=== PATIENT | male | born 1935 | race Caucasian/White ===

== ENCOUNTER 2017-10-20 16:23 | Emergency (ER) | payer MEDICARE, MEDICAID, SELFPAY | END 2017-10-20 19:56 | disposition home or self-care (01) | PROVIDERS: Emergency Provider Emergency Medicine; Visit Provider Emergency Medicine | DX: J18.9 Pneumonia, unspecified organism (principal); I48.91 Unspecified atrial fibrillation; I25.10 Atherosclerotic heart disease of native coronary artery without angina pectoris; E78.5 Hyperlipidemia, unspecified; J44.9 Chronic obstructive pulmonary disease, unspecified; E11.9 Type 2 diabetes mellitus without complications; Z87.891 Personal history of nicotine dependence | CPT/HCPCS: 36415; 71275; 84484; 93005; 99283 ==

== ENCOUNTER 2017-11-12 07:53 | Day surgery (SDC) | payer MEDICARE, MEDICAID, SELFPAY ==
[2017-11-11 12:49] VITALS: BMI 20.5
[2017-11-12] VITALS (8 sets, daily range): BP systolic 106–147; BP diastolic 53–94; PULSE 70–82; RESP 12–18; TEMP 36.6–36.8; O2SAT 93–99
[2017-11-12 09:22] LABS: POC Glucose,Bedside 125 mg/dL
--- NOTE | 2017-11-12 10:25 | HMH.ANESCL ---
[facility] Anesthesia Checklist - Patient Identification Patient Identification: Arm Band, Verbal (Name & ) - Structural Data Admitted From: Home Planned Operative Procedure/s: pace maker Consent for Planned Operative Procedure(s) Verified: Yes Verified Documents: Surgical Consent - NPO Status Verified Time NPO: 00:00 - Chart Verification Results Verified: CBC, BMP - Additional verifications Patient : No Anesthesia Reactions: No Hx Blood Transfusions: Yes Blood Transfusion Reaction: No - Cardiovascular Assessment Pulse Strength: Baseline Pulse Rhythm: Irregular Peripheral Edema: No - Airway Assessment C-Spine Mobility Assessed: Yes TMJ Mobility Assessed: Yes Dentition: Edentulous - Neurological Assessment Level of Consciousness: Awake, Alert, Appropriate Hx Seizures: No Numbness or tingling in extremities: No - Anesthesia Plan Anesthesia Risk discussed: Yes Anesthesia Plan: Verified ASA Class: III Anesthesia Type: MAC [facility] Anesthesia HX I have reviewed the patient's past medical history: Yes Medical History: Reports:: Atrial Fibrillation, Chronic Obstructive Pulmonary Disease (COPD), Coronary Artery Disease, Diabetes Mellitus Type 2, Gastroesophageal Reflux Disease, Hyperlipidemia, Hypertension, Renal Disease Denies:: Cancer, Diabetes Mellitus Type 1, MRSA, Seizures Other Medical History: Reports: Hypothyroidism. Denies: Blood Transfusion Reaction Other Surgeries: Yes: Hernia Repair, Other. No: Pacemaker Amputation: No Fractures: No Comment: cabg x4 *Family Hx:: Anemia, Bleeding Disorder, Kidney Disease
--- NOTE | 2017-11-12 11:48 | XR_ITS ---
XR chest portable HISTORY: Follow-up pacemaker insertion ITS.REASON: s/p pacemaker placement ORDERING PHYSICIAN: Mark Lo MD PATIENT AGE: 81 years COMPARISON: 06/25/2017 FINDINGS: There is been interval insertion of the bipolar pacemaker from left subclavian approach. Leads are in good position. There is no evidence of pneumothorax. There has been prior median sternotomy. There is cardiomegaly without failure. Small bilateral pleural effusions with chronic changes in the left lower lobe. IMPRESSION: Interval pacemaker insertion with no radiographic evidence of complication.
--- NOTE | 2017-11-12 13:57 | PC.NURSE ---
Patient is home o2 dependent at 4lpm/nc
--- NOTE | 2017-11-12 14:10 | PC.NURSE ---
1206: Called for MD order for pain medication.
--- NOTE | 2017-11-16 15:50 | PC.NURSE ---
Pt called back with concerns of prescription written by . Pt advised to speak to 's office to confirm the use of prescription. Also stated that the pt was having some pain and possible pneumonia symptoms. Instructed for pt to get a visit with family doctor or come to ER if needed. Pt requested to be transfered to 's office.
--- NOTE | 2018-01-05 12:33 | HMH.PACER ---
[facility] Pacemaker - Pacemaker Placement Date of Procedure:: 11/12/17 Time of Procedure:: 09:00 Procedure Performed:: Pocket formation for permanent pacemaker placement Placement of atrial sensing pacing lead into the right atrial appendage Placement of ventricular sensing pacing lead into the right ventricular apex Permanent pacemaker placement Preoperative Diagnosis:: Symptomatic Bradycardia Complications:: None Estimated Blood Loss (ml): 10 Technique:: 1% Lidocaine with epinephrine used to anesthetize the left anterior aspect of the chest.Scalpel was used to make the initial cutaneous incision while electrocautery was used to dissect down into the fascia. The fascia was lifted off the pectoralis muscle and digitally manipulated creating a pocket for the pacemaker. The patient was then placed in Trendelenburg position and the subclavian vein was accessed via the Selinger technique. A 7 Serbian sheath was placed under fluoroscopic guidance into the subclavian vein. Following this, an additional wire was placed into the sheath. Now, with two wires inside the 7 Serbian sheath, this sheath was removed, maintaining the two wires in the subclavian vein. The sheath and dilator was then placed over one of the wires while keeping the other wire in place within the subclavian vein. The dilator was removed from the sheath. Using fluoroscopic guidance, the ventricular lead was placed into the right ventricular apex, screwed and secured into place. Electronic interrogation proved acceptable thresholds and voltage within the lead. Using 3-0 silk, the ventricular lead was then secured into place. Lead was secured to the fascia using the 3-0 silk. Following this, the sheath was pealed away. An additional 7 Serbian fresh sheath and dilator was placed over the existing wire. Using fluoroscopic guidance, the atrial lead was then placed into the right atrial appendage and screwed and secured in place. Electrical interrogation demonstrated acceptable thresholds and voltage numbers. The atrial lead was then secured into place using 3-0 silk and then the lead was finally secured to the fascia. With both the atria and ventricular leads in place with acceptable thresholds and sensitivity, the atrial and ventricular leads were placed into the pacemaker generator. Pacemaker generator was then secured to the fascia using 3-0 silk. 1 gram of Ancef was used to flush the pocket. Following the pacemaker being secured to the fascia and in place, Monocryl was used to close the subcutaneous layers while bhavya were used to close the cutaneous layer. A pressure dressing was placed and the patient was transferred to the postop holding area in stable condition for postoperative care. - Interrogation Narrative: P wave measures 3-4mV with a threshold AF and impedance 406 ohms and pulse width AF R wave measures 7-8 mV with a threshold of 1.0V and an impedance 708 ohms and pulse width .4 ms DDDR mode with a base tracking of 60 and max tracking 120 Generator model number [id number] serial number [id number] Atrial lead model number [id number] serial number [id number] Ventricular lead model number [id number] serial number [id number] Impression:: 1. Successful pocket formation for permanent pacemaker 2. Successful placement of atrial sensing and pacing lead into the right atrial appendage 3. Successful placement of ventricular sensing and pacing lead into the right ventricular apex 4. Successful placement of permanent dual chamber pacemaker Plan: Postoperative wound care
--- NOTE | 2018-01-05 12:38 | P.PCN_ITS ---
[facility] Pacemaker - Pacemaker Placement Date of Procedure:: 11/12/17 Time of Procedure:: 09:00 Procedure Performed:: Pocket formation for permanent pacemaker placement Placement of atrial sensing pacing lead into the right atrial appendage Placement of ventricular sensing pacing lead into the right ventricular apex Permanent pacemaker placement Preoperative Diagnosis:: Symptomatic Bradycardia Complications:: None Estimated Blood Loss (ml): 10 Technique:: 1% Lidocaine with epinephrine used to anesthetize the left anterior aspect of the chest.Scalpel was used to make the initial cutaneous incision while electrocautery was used to dissect down into the fascia. The fascia was lifted off the pectoralis muscle and digitally manipulated creating a pocket for the pacemaker. The patient was then placed in Trendelenburg position and the subclavian vein was accessed via the Selinger technique. A 7 Faroese sheath was placed under fluoroscopic guidance into the subclavian vein. Following this, an additional wire was placed into the sheath. Now, with two wires inside the 7 Faroese sheath, this sheath was removed, maintaining the two wires in the subclavian vein. The sheath and dilator was then placed over one of the wires while keeping the other wire in place within the subclavian vein. The dilator was removed from the sheath. Using fluoroscopic guidance, the ventricular lead was placed into the right ventricular apex, screwed and secured into place. Electronic interrogation proved acceptable thresholds and voltage within the lead. Using 3-0 silk, the ventricular lead was then secured into place. Lead was secured to the fascia using the 3-0 silk. Following this, the sheath was pealed away. An additional 7 Faroese fresh sheath and dilator was placed over the existing wire. Using fluoroscopic guidance, the atrial lead was then placed into the right atrial appendage and screwed and secured in place. Electrical interrogation demonstrated acceptable thresholds and voltage numbers. The atrial lead was then secured into place using 3-0 silk and then the lead was finally secured to the fascia. With both the atria and ventricular leads in place with acceptable thresholds and sensitivity, the atrial and ventricular leads were placed into the pacemaker generator. Pacemaker generator was then secured to the fascia using 3-0 silk. 1 gram of Ancef was used to flush the pocket. Following the pacemaker being secured to the fascia and in place, Monocryl was used to close the subcutaneous layers while bhavya were used to close the cutaneous layer. A pressure dressing was placed and the patient was transferred to the postop holding area in stable condition for postoperative care. - Interrogation Narrative: P wave measures 3-4mV with a threshold AF and impedance 406 ohms and pulse width AF R wave measures 7-8 mV with a threshold of 1.0V and an impedance 708 ohms and pulse width .4 ms DDDR mode with a base tracking of 60 and max tracking 120 Generator model number [id number] serial number [id number] Atrial lead model number [id number] serial number [id number] Ventricular lead model number [id number] serial number [id number] Impression:: 1. Successful pocket formation for permanent pacemaker 2. Successful placement of atrial sensing and pacing lead into the right atrial appendage 3. Successful placement of ventricular sensing and pacing lead into the right ventricular apex 4. Successful placement of permanent dual chamber pacemaker Plan: Postoperative wound care
== END 2017-11-12 13:30 | disposition home or self-care (01) ==
LOC: OR 07:55
PROVIDERS: PCP Internal Medicine Adolescent Medicine; Visit Provider Internal Medicine
DX: I48.3 Typical atrial flutter (principal); R55 Syncope and collapse; R42 Dizziness and giddiness; R00.1 Bradycardia, unspecified; R06.09 Other forms of dyspnea; I25.10 Atherosclerotic heart disease of native coronary artery without angina pectoris
CPT/HCPCS: 33208; 71045; 82962; 96374; C1785; C1898

== ENCOUNTER 2018-01-14 15:38 | Inpatient (IN) | payer MEDICARE, MEDICAID, SELFPAY ==
[2018-01-14] VITALS (7 sets, daily range): BP systolic 130–153; BP diastolic 59–79; PULSE 78–81; RESP 20–24; TEMP 36.6–37; O2SAT 92–933; BMI 21.2; BMI 20.3
--- NOTE | 2018-01-14 15:54 | XR_ITS ---
XR chest 2V COMPARISON: PA and lateral chest 06/25/2017 HISTORY: Shortness of breath TECHNIQUE: PA and lateral chest FINDINGS: Prominent pleural-parenchymal scarring seen at both lung bases. There is a somewhat ill-defined opacity at the right base which was shown to be due to a right lower lobe mass on previous CT scan. There is mild diffuse vascular congestion superimposed upon chronic changes. There is a cardiac pacemaker present which was not seen on most recent chest film and there are dual chamber electrodes both in good position. Sternal wire sutures are again noted. IMPRESSION: Prominent underlying chronic pleural-parenchymal basilar changes with pulmonary congestion superimposed suggesting early acute congestive failure
[2018-01-14 16:26] LABS: Appearance,Urine CLEAR (Clear); Bilirubin,Urine Negative (Negative); Blood, Urine Negative (Negative); Color,Urine YELLOW (Yellow); Glucose,Urine (UA) Negative (Negative); Ketones,Urine Negative (Negative); Leukocyte Esterase,Urine Negative (Negative); Microscopic, Urine URINE MICROSCOPIC (MICROSCOPIC); Nitrate,Urine Negative (Negative); Protein,Urine Negative (Negative); Urobilinogen,Urine 0.2 EU/dl (0.2)
[2018-01-14 16:36] LABS: Basophils % 0.4 % (0.1-2.0); Eosinophils # 0.1 K/mm3 (0.0-0.4); Eosinophils % 0.7 % (0.1-12.0); Hematocrit 34.4 % (42.0-52.0); Hemoglobin 10.2 g/dL (14.1-18.0); Lymphocytes # 1.9 K/mm3 (0.7-4.5); Lymphocytes % 17.1 K/mm3 (10-50); Mean Corpuscular HGB Conc 29.6 g/dL (31.8-35.4); Mean Corpuscular Hemoglobin 24.6 pg (27.0-31.2); Mean Corpuscular Volume 83.2 fl (80-94); Mean Platelet Volume 7.7 fl (7.4-10.4); Monocytes # 0.7 K/mm3 (0.1-1.0); Neutrophils # 8.3 K/mm3 (1.8-7.8); Neutrophils % 75.8 % (37.0-80.0); Platelet Count 381 K/mm3 (142-424); Red Blood Count 4.14 M/mm3 (4.60-6.20); White Blood Count 10.9 K/mm3 (4.8-10.8)
[2018-01-14 16:55] LABS: Bacteria,Urine Trace /lpf; WBC,Urine Occasional #/hpf (0-3)
[2018-01-14 16:57] LABS: Alanine Aminotransferase 12 U/L (12-78); Albumin Level 3.3 gm/dL (3.4-5.0); Albumin/Globulin Ratio 0.8 (1.1-1.8); Alkaline Phosphatase 84 U/L (46-116); Anion Gap 15.5 mEq/L (5-15); Aspartate Amino Transferase 7 U/L (15-37); Bilirubin,Total 0.8 mg/dL (0.2-1.0); Blood Urea Nitrogen 17 mg/dL (7-18); CKMB Relative Index 2.7 U/L (0-4.0); Calcium 8.8 mg/dL (8.5-10.1); Carbon Dioxide 29 mmol/L (21.0-32.0); Chloride 107 mmol/L (98-107); Creatine Kinase 45 U/L (39-308); Creatine Kinase MB 1.2 mg/ml (0.0-3.6); Creatinine Clearance Estimated 58 mL/min (0-300); Creatinine,Serum 0.96 mg/dL (0.70-1.30); Estimated Glomerular Filt Rate 75 ml/min (>60); GFR (African American) 91 ML/MIN (>60); Globulin 4.4 gm/dl (1.3-3.2); Glucose 121 mg/dL (74-106); Potassium 3.5 mmoL/L (3.5-5.1); Sodium 148 mmol/L (136-145); Total Protein,Serum 7.7 gm/dL (6.4-8.2); Troponin I < 0.02 ng/ml (0.00-0.06)
--- NOTE | 2018-01-14 17:28 | HMH.EDSOB ---
ED Disposition Clinical Impression: Acute exacerbation of chronic obstructive airways disease Pneumonia Qualifiers: Pneumonia type: due to unspecified organism Laterality: right Lung location: lower lobe of lung Qualified Code(s): J18.1 - Lobar pneumonia, unspecified organism Disposition: Admitted As Inpatient Condition on Discharge: Good Referrals: Haseeb Carter MD [Primary Care Provider] - - Critical Care Critical Care Time: No Attestation: On 01/14/18, the high probability of a clinically significant, sudden or life threatening deterioration of the following system(s) required my full and direct attention, intervention and personal management. The time I documented below is in addition to time spent performing reported procedures but includes the following listed in this critical care notation. Medical Decision Making - Edmar Inquiry Pt receiving controlled substance: No Edmar was queried for this patient: No Vital Signs: 01/14/18 15:41 Temperature 98.4 F Temperature Source Oral Pulse Rate [Left Brachial] 81 Respiratory Rate 20 Blood Pressure [Left Arm] 153/79 Blood Pressure Mean [Left Arm] 103 Blood Pressure Position [Left Arm] Sitting 02 Sat by Pulse Oximetry 93 L Oxygen Delivery Method Nasal Cannula Oxygen Flow Rate (LPM) 4 - Lab Data Lab Results 01/14/18 15:57: Urine Color Yellow, Urine Appearance Clear, Urine pH 6.0, Ur Specific Salley 1.010, Urine Protein Negative, Urine Glucose (UA) Negative, Urine Ketones Negative, Urine Blood Negative, Urine Nitrate Negative, Urine Bilirubin Negative, Urine Urobilinogen 0.2, Ur Leukocyte Esterase Negative, Urine RBC None, Urine WBC Occasional, Ur Squamous Epith Cells 10-20, Urine Bacteria Trace 01/14/18 16:20: WBC 10.9 H, RBC 4.14 L, Hgb 10.2 L, Hct 34.4 L, MCV 83.2, MCH 24.6 L, MCHC 29.6 L, RDW 15.0, Plt Count 381, MPV 7.7, Neut % (Auto) 75.8, Lymph % (Auto) 17.1, Surry % (Auto) 6.0, Eos % (Auto) 0.7, Baso % (Auto) 0.4, Neut # (Auto) 8.3 H, Lymph # (Auto) 1.9, Surry # (Auto) 0.7, Eos # (Auto) 0.1, Baso # (Auto) 0.0 01/14/18 16:20: Sodium 148 H, Potassium 3.5, Chloride 107, Carbon Dioxide 29, Anion Gap 15.5 H, BUN 17, Creatinine 0.96, Estimated Creat Clear 58, Estimated GFR 75, Est GFR ( Amer) 91, Glucose 121 H, Calcium 8.8, Total Bilirubin 0.8, AST 7 L, ALT 12, Alkaline Phosphatase 84, Total Creatine Kinase 45, CK-MB (CK-2) 1.2, CK-MB (CK-2) Rel Index 2.7, Troponin I < 0.02, Total Protein 7.7, Albumin 3.3 L, Globulin 4.4 H, Albumin/Globulin Ratio 0.8 L Result diagrams: 01/14/18 16:20 01/14/18 16:20 Orders (Tests/Meds): ORDERS Category Date Time Status Chest XR 2 view (NOT portable) [XR chest 2V] Stat Exams 01/14/18 15:54 Taken ECG Request by /Catherine Stat Y 01/14/18 15:54 Ordered - Radiology Data #1 Image(s): Chest Image Reviewed: Yes I reviewed the patient's radiology image appears to have rll infiltrtate - ECG Data Tracing #1 ECG initial impression date: 01/14/18 ECG initial impression time: 16:00 Pacemaker function: normal pacer function Resp/SOB HPI - General Chief Complaint: Shortness of Breath/Dyspnea Stated Complaint: SOA Time Seen by Provider: 01/14/18 17:05 Mode of Arrival: EMS Source of Information: Patient Limitations: No Limitations Description of Symptoms (Recalled from ER Triage Doc. by RN): EMS STATED PT CALLED WITH DIFFICULTY BREATHING. O2 SAT 88-89 ON ARRIVAL WITH USE OF ACESSORY MUSCLES. NEB TREATMENT GIVEN AND O2 SAT 95-96 WITH 4LNC AND RELIEF IN BREATHING - History of Present Illness MD Complaint: shortness of breath Onset (ago): day(s) (6) Context: recent illness (was at Dr Carter office this week and had antibiotics and steroids now has dypsnea on exertion and no pain) Severity: moderate Consistency/Duration: constant Relieving factors: oxygen, rest Exacerbating factors: movement Known history of: COPD Associated symptoms: denies other symptoms - Related Data Home Medications Me
--- NOTE | 2018-01-14 17:32 | ED_ITS ---
ED Disposition Clinical Impression: Acute exacerbation of chronic obstructive airways disease Pneumonia Qualifiers: Pneumonia type: due to unspecified organism Laterality: right Lung location: lower lobe of lung Qualified Code(s): J18.1 - Lobar pneumonia, unspecified organism Disposition: Admitted As Inpatient Condition on Discharge: Good Referrals: Haseeb Carter MD [Primary Care Provider] - - Critical Care Critical Care Time: No Attestation: On 01/14/18, the high probability of a clinically significant, sudden or life threatening deterioration of the following system(s) required my full and direct attention, intervention and personal management. The time I documented below is in addition to time spent performing reported procedures but includes the following listed in this critical care notation. Medical Decision Making - Edmar Inquiry Pt receiving controlled substance: No Edmar was queried for this patient: No Vital Signs: 01/14/18 15:41 Temperature 98.4 F Temperature Source Oral Pulse Rate [Left Brachial] 81 Respiratory Rate 20 Blood Pressure [Left Arm] 153/79 Blood Pressure Mean [Left Arm] 103 Blood Pressure Position [Left Arm] Sitting 02 Sat by Pulse Oximetry 93 L Oxygen Delivery Method Nasal Cannula Oxygen Flow Rate (LPM) 4 - Lab Data Lab Results 01/14/18 15:57: Urine Color Yellow, Urine Appearance Clear, Urine pH 6.0, Ur Specific Ambler 1.010, Urine Protein Negative, Urine Glucose (UA) Negative, Urine Ketones Negative, Urine Blood Negative, Urine Nitrate Negative, Urine Bilirubin Negative, Urine Urobilinogen 0.2, Ur Leukocyte Esterase Negative, Urine RBC None, Urine WBC Occasional, Ur Squamous Epith Cells 10-20, Urine Bacteria Trace 01/14/18 16:20: WBC 10.9 H, RBC 4.14 L, Hgb 10.2 L, Hct 34.4 L, MCV 83.2, MCH 24.6 L, MCHC 29.6 L, RDW 15.0, Plt Count 381, MPV 7.7, Neut % (Auto) 75.8, Lymph % (Auto) 17.1, [place] % (Auto) 6.0, Eos % (Auto) 0.7, Baso % (Auto) 0.4, Neut # (Auto) 8.3 H, Lymph # (Auto) 1.9, [place] # (Auto) 0.7, Eos # (Auto) 0.1, Baso # (Auto) 0.0 01/14/18 16:20: Sodium 148 H, Potassium 3.5, Chloride 107, Carbon Dioxide 29, Anion Gap 15.5 H, BUN 17, Creatinine 0.96, Estimated Creat Clear 58, Estimated GFR 75, Est GFR ( Amer) 91, Glucose 121 H, Calcium 8.8, Total Bilirubin 0.8, AST 7 L, ALT 12, Alkaline Phosphatase 84, Total Creatine Kinase 45, CK-MB ( CK-2) 1.2, CK-MB (CK-2) Rel Index 2.7, Troponin I < 0.02, Total Protein 7.7, Albumin 3.3 L, Globulin 4.4 H, Albumin/Globulin Ratio 0.8 L Result diagrams: 01/14/18 16:20 01/14/18 16:20 Orders (Tests/Meds): ORDERS Category Date Time Status Chest XR 2 view (NOT portable) [XR chest 2V] Stat Exams 01/14/18 15:54 Taken ECG Request by /Catherine Stat Y 01/14/18 15:54 Ordered - Radiology Data #1 Image(s): Chest Image Reviewed: Yes I reviewed the patient's radiology image appears to have rll infiltrtate - ECG Data Tracing #1 ECG initial impression date: 01/14/18 ECG initial impression time: 16:00 Pacemaker function: normal pacer function Resp/SOB HPI - General Chief Complaint: Shortness of Breath/Dyspnea Stated Complaint: SOA Time Seen by Provider: 01/14/18 17:05 Mode of Arrival: EMS Source of Information: Patient Limitations: No Limitations Description of Symptoms (Recalled from ER Triage Doc. by RN): EMS STATED PT CALLED WITH DIFFICULTY BREATHING. O2 SAT 88-89 ON ARRIVAL WIT
--- NOTE | 2018-01-14 19:00 | PC.NURSE ---
PT FULL CODE, REPORT FROM JAYCE
--- NOTE | 2018-01-14 19:00 | PC.NURSE ---
REPORT GIVEN TO MARCIO GARCIA RN
--- NOTE | 2018-01-14 19:34 | PC.NURSE ---
report given to johnna esquivel
[2018-01-14 23:39] LABS: POC Glucose,Bedside 174 mg/dL (70-110)
[2018-01-15] VITALS (10 sets, daily range): BP systolic 117–154; BP diastolic 62–73; PULSE 79–82; RESP 18–20; TEMP 36.2–36.9; O2SAT 94–98
[2018-01-15 06:59] LABS: POC Glucose,Bedside 191 mg/dL (70-110)
--- NOTE | 2018-01-15 07:33 | PC.NURSE ---
REPORT GIVEN TO Almas SUGGS W/C
--- NOTE | 2018-01-15 07:35 | HMH.HP ---
*Admission Date: 01/14/18 *Chief complaint: Shortness of breath *History of present illness: 82-year-old male with COPD and recent history of pacemaker placement presented to the emergency department after onset of cold symptoms this week with progressive dyspnea. However in talking to the patient he reports dyspnea has really been progressive over the last several months. On presentation to the emergency department the patient appeared dyspneic and was wheezing and he was admitted for COPD exacerbation. Patient denies chest pain. This morning he states he feels well as long as he is laying down, but with mild exertion such as to the bathroom he becomes short of breath. He has noticed some pedal edema over the last 3-4 days as well. Chest x-ray in the emergency department was initially interpreted as a right lower lobe pneumonia but has since been read as scarring with early vascular congestion. Patient denies orthopnea, paroxysmal nocturnal dyspnea. He admits when he exerts himself he gets a tight sensation occasionally in the chest and difficulty breathing. Patient has seen local cardiology and has undergone cardiac catheterization by Dr. Lo as well as pacemaker insertion [facility] History Medical History: Reports:: Atrial Fibrillation, Chronic Obstructive Pulmonary Disease (COPD), Coronary Artery Disease, Diabetes Mellitus Type 1, Gastroesophageal Reflux Disease(GERD), Hyperlipidemia, Hypertension, Internal Pacemaker, Renal Disease Denies:: Cancer, Diabetes Mellitus Type 2, MRSA, Seizures Other Medical History: Reports: Anemia, Arthritis, Blood Transfusion Reaction, Cataracts, Hypothyroidism Laterality Cases: Bilateral: Cataract Other Surgeries: Yes: CABG, Cardiac Catheterization, Coronary Stent, Hernia Repair, Pacemaker, Other Amputation: No Fractures: No - *Social History Educational Level: Attended High School Smoking Status: Former smoker Tobacco Type: cigarettes # Packs/Day (cigarettes): 1 #Yrs smoked (if former smoker): 30 Smoking End Date: 30 YEARS Alcohol Intake: never Occupational Status: retired Housing: house Household Members: caregiver, none - Psychiatric History Expresses thoughts of harming self/others: None Suicide Plan Description: No Plan *Family Hx:: Anemia, Bleeding Disorder, Kidney Disease Review of Systems - Review of Systems Review of systems:: pertinent systems reviewed and negative unless documented below Meds Home Medications Medication Instructions Recorded Confirmed Type Acetaminophen with Codeine 1 - 2 tab PO Q4HP PRN 11/12/17 01/14/18 History [Tylenol with Codeine #3 tablet] Albuterol Sulfate [Proair 90 mcg IH DAILY 11/12/17 01/14/18 History Respiclick] Carvedilol [Carvedilol 6.25mg Tab] 6.25 mg PO DAILY 11/12/17 01/14/18 History Fludrocortisone Acetate [Florinef 0.1 mg IH DAILY 11/12/17 01/14/18 History 0.1mg tablet] Fluticasone/Salmeterol 0 each IH DAILY 11/12/17 01/14/18 History [Fluticasone/Salmeterol 250/50mcg diskus] Meloxicam 7.5 mg PO DAILY 11/12/17 01/14/18 History Metformin HCl [Metformin 500mg 500 mg .ROUTE DAILY 11/12/17 01/14/18 History Tablet] Nitroglycerin 0.4 mg SL NEEDED PRN 11/12/17 01/14/18 History Ondansetron HCl [Ondansetron 4mg 4 mg PO DAILY 11/12/17 01/14/18 History Tab] Pantoprazole Sodium [Protonix 40mg 40 mg PO DAILY 11/12/17 01/14/18 History tablet] Rivaroxaban [Xarelto] 20 mg PO DAILY 11/12/17 01/14/18 History Sertraline HCl [Zoloft] 50 mg PO DAILY 11/12/17 01/14/18 History Simvastatin [Zocor] 40 mg PO DAILY 11/12/17 01/14/18 History Tamsulosin HCl [Flomax] 0.4 mg PO DAILY 11/12/17 01/14/18 History hydrocodone 5 mg-acetaminophen 325 1 tab PO Q6H PRN 11/17/17 01/14/18 History mg tablet Clopidogrel Bisulfate [Plavix 75mg 75 mg PO DAILY 01/14/18 01/14/18 History Tab] Doxycycline Monohydrate 100 mg PO BID 01/14/18 01/14/18 History [Doxycycline Monohydrate] Gabapentin [Gabapentin 100mg Cap] 100 mg PO DA
--- NOTE | 2018-01-15 07:39 | P.HP_ITS ---
*Admission Date: 01/14/18 *Chief complaint: Shortness of breath *History of present illness: 82-year-old male with COPD and recent history of pacemaker placement presented to the emergency department after onset of cold symptoms this week with progressive dyspnea. However in talking to the patient he reports dyspnea has really been progressive over the last several months. On presentation to the emergency department the patient appeared dyspneic and was wheezing and he was admitted for COPD exacerbation. Patient denies chest pain. This morning he states he feels well as long as he is laying down, but with mild exertion such as to the bathroom he becomes short of breath. He has noticed some pedal edema over the last 3-4 days as well. Chest x-ray in the emergency department was initially interpreted as a right lower lobe pneumonia but has since been read as scarring with early vascular congestion. Patient denies orthopnea, paroxysmal nocturnal dyspnea. He admits when he exerts himself he gets a tight sensation occasionally in the chest and difficulty breathing. Patient has seen local cardiology and has undergone cardiac catheterization by Dr. Lo as well as pacemaker insertion [facility] History Medical History: Reports:: Atrial Fibrillation, Chronic Obstructive Pulmonary Disease (COPD), Coronary Artery Disease, Diabetes Mellitus Type 1, Gastroesophageal Reflux Disease(GERD), Hyperlipidemia, Hypertension, Internal Pacemaker, Renal Disease Denies:: Cancer, Diabetes Mellitus Type 2, MRSA, Seizures Other Medical History: Reports: Anemia, Arthritis, Blood Transfusion Reaction, Cataracts, Hypothyroidism Laterality Cases: Bilateral: Cataract Other Surgeries: Yes: CABG, Cardiac Catheterization, Coronary Stent, Hernia Repair, Pacemaker, Other Amputation: No Fractures: No - *Social History Educational Level: Attended High School Smoking Status: Former smoker Tobacco Type: cigarettes # Packs/Day (cigarettes): 1 #Yrs smoked (if former smoker): 30 Smoking End Date: 30 YEARS Alcohol Intake: never Occupational Status: retired Housing: house Household Members: caregiver, none - Psychiatric History Expresses thoughts of harming self/others: None Suicide Plan Description: No Plan *Family Hx:: Anemia, Bleeding Disorder, Kidney Disease Review of Systems - Review of Systems Review of systems:: pertinent systems reviewed and negative unless documented below Meds Home Medications Medication Instructions Recorded Confirmed Type Acetaminophen with Codeine 1 - 2 tab PO Q4HP PRN 11/12/17 01/14/18 History [Tylenol with Codeine #3 tablet] Albuterol Sulfate [Proair 90 mcg IH DAILY 11/12/17 01/14/18 History Respiclick] Carvedilol [Carvedilol 6.25mg Tab] 6.25 mg PO DAILY 11/12/17 01/14/18 History Fludrocortisone Acetate [Florinef 0.1 mg IH DAILY 11/12/17 01/14/18 History 0.1mg tablet] Fluticasone/Salmeterol 0 each IH DAILY 11/12/17 01/14/18 History [Fluticasone/Salmeterol 250/50mcg diskus] Meloxicam 7.5 mg PO DAILY 11/12/17 01/14/18 History Metformin HCl [Metformin 500mg 500 mg .ROUTE DAILY 11/12/17 01/14/18 History Tablet] Nitroglycerin 0.4 mg SL NEEDED PRN 11/12/17 01/14/18 History Ondansetron HCl [Ondansetron 4mg 4 mg PO DAILY 11/12/17 01/14/18 History Tab] Pantoprazole Sodium [Protonix 40mg 40 mg PO DAILY 11/12/17 01/14/18 History tablet] Rivaroxaban [Xarelto] 20 mg PO DAILY 11/12/17 01/14/18 History Sertraline HCl [Zoloft] 50 mg PO DAILY 11/12/17
[2018-01-15 07:46] LABS: Anion Gap 14.9 mEq/L (5-15); Blood Urea Nitrogen 18 mg/dL (7-18); Carbon Dioxide 30 mmol/L (21.0-32.0); Chloride 106 mmol/L (98-107); Creatinine Clearance Estimated 56 mL/min (0-300); Estimated Glomerular Filt Rate 81 ml/min (>60); GFR (African American) 98 ML/MIN (>60); Glucose 201 mg/dL (74-106); Potassium 3.9 mmoL/L (3.5-5.1); Sodium 147 mmol/L (136-145)
--- NOTE | 2018-01-15 07:53 | PC.NURSE ---
PT SLEPT LONG INTERVALS. IV TO SALINE LOCK, FLUSHES WELL. RECEIVING STEROIDS AND ABX. NO CURRENT IV FLUIDS. NO C/O PAIN OR DISCOMFORT. 3L OXYGEN. BREATH SOUNDS DIMINISHED, BUT CLEAR. SPUTUM SPECIMEN OBTAINED. STABLE. WILL CONTINUE TO MONITOR. REPORT TO ONCOMING NURSE.
[2018-01-15 08:05] LABS: Basophils % 0.1 % (0.1-2.0); Eosinophils % 0.4 % (0.1-12.0); Hematocrit 32.1 % (42.0-52.0); Hemoglobin 9.8 g/dL (14.1-18.0); Lymphocytes # 0.8 K/mm3 (0.7-4.5); Lymphocytes % 14.4 K/mm3 (10-50); Mean Corpuscular HGB Conc 30.5 g/dL (31.8-35.4); Mean Corpuscular Hemoglobin 25.1 pg (27.0-31.2); Mean Corpuscular Volume 82.3 fl (80-94); Mean Platelet Volume 7.1 fl (7.4-10.4); Monocytes # 0.1 K/mm3 (0.1-1.0); Monocytes % 1.2 % (1.7-9.3); Neutrophils # 4.5 K/mm3 (1.8-7.8); Neutrophils % 83.9 % (37.0-80.0); Platelet Count 325 K/mm3 (142-424); Red Cell Distribution Width 15.1 % (11.5-17.5); White Blood Count 5.4 K/mm3 (4.8-10.8)
[2018-01-15 11:24] LABS: POC Glucose,Bedside 262 mg/dL (70-110)
--- NOTE | 2018-01-15 13:38 | HMH.PHAVTE ---
[facility] Pharmacy VTE Monitoring - Patient Demographics Admission date: 01/15/18 Report Date: 01/15/18 Time: 13:38 Allergies/Adverse Reactions: Patient Allergies Penicillins Allergy (Severe, Verified 01/15/18 08:05) throat closure Height: 1.83 m Weight: 68.152 kg Patient Problems: Current Active Problems Pneumonia (Acute) Acute exacerbation of chronic obstructive airways disease (Acute) - VTE Risk Labs: VTE Related Lab Results Hgb 9.8 g/dL (14.1-18.0) L 01/15/18 06:44 Hct 32.1 % (42.0-52.0) L 01/15/18 06:44 Plt Count 325 K/mm3 (142-424) 01/15/18 06:44 BUN 18 mg/dL (7-18) 01/15/18 06:44 Creatinine 0.90 mg/dL (0.70-1.30) 01/15/18 06:44 Estimated Creat Clear 56 mL/min (0-300) 01/15/18 06:44 Was VTE Risk Assessment Performed: Yes VTE Score: 5 VTE Risk Level: Low Risk - Prophylaxis Types of VTE Prophylaxis: TEDS Knee High Location of Applied Device: Bilateral Lower Extremeties, Refused - VTE Diagnosis Confirmed Comment: LUIS ANTONIO CEVALLOS ORDERED
--- NOTE | 2018-01-15 17:37 | PC.NURSE ---
PT IS A&Ox4 IN NAD. VSS. AFEBRILE. HEART RATE REG. LUNGS CTA WITH CRACKLES NOTED IN BILAT BASES. 02 @ 3LPM VIA NC IN PLACE. PT DENIES ANY C/O AT THIS TIME. (R)AC IV SALINE LOCKED; FLUSHES EASILY /C GOOD BLOOD RETURN. BED IN LOW POSITION, CALL ALICEA WITHIN REACH. WILL CONTINUE TO MONITOR.
--- NOTE | 2018-01-15 19:04 | PC.NURSE ---
Report given to Sky Delacruz RN
--- NOTE | 2018-01-15 19:15 | PC.NURSE ---
PT FULL CODE, REPORT FROM PARTHA
[2018-01-16] VITALS (10 sets, daily range): BP systolic 122–147; BP diastolic 58–77; PULSE 80–81; RESP 18–22; TEMP 36.1–36.7; O2SAT 89–96
[2018-01-16 02:12] LABS: POC Glucose,Bedside 217 mg/dL (70-110)
[2018-01-16 02:13] LABS: POC Glucose,Bedside 306 mg/dL (70-110)
--- NOTE | 2018-01-16 05:58 | PC.NURSE ---
PT ALERT AND ORIENTED. STATES STILL FEELING WEAK. CURRENTLY ON 2L/NC. NO C/O CHEST PAIN OR SOA NOTED. VSS. ORDER OBTAINED FOR MEDICATION FOR SLEEP PER PT REQUEST. SLEPT WELL AFTER. IV SECURE AND PATENT TO SALINE LOCK. CONTINUES ON STEROIDS. NO COUGH NOTED. PT STABLE. WILL CONTINUE TO MONITOR. REPORT TO BE GIVEN TO ONCOMING NURSE.
[2018-01-16 07:08] LABS: POC Glucose,Bedside 202 mg/dL (70-110)
--- NOTE | 2018-01-16 07:18 | PC.NURSE ---
REPORT GIVEN TO Almas SUGGS W/C
--- NOTE | 2018-01-16 08:18 | PC.NURSE ---
0715 - Report received from Sky Delacruz RN
--- NOTE | 2018-01-16 08:39 | HMH.ACPN2 ---
Internal Medicine - PN: Subj *Date: 01/16/18 *Time: 08:39 Interval history: Patient reports some improvement in his level of dyspnea although he is still requiring supplemental oxygen to ambulate. Exam Vital signs and Labs for Last 24 Hours: Temp Pulse Resp BP Pulse Ox 98.0 F 81 18 132/71 96 01/16/18 04:00 01/16/18 04:00 01/16/18 04:00 01/16/18 04:00 01/16/18 04:00 Laboratory Results - last 24 hr 01/15/18 11:02: POC Glucose 262 01/15/18 17:07: POC Glucose 217 01/15/18 20:24: POC Glucose 306 01/16/18 06:33: POC Glucose 202 I & O for Last 24 hours: Intake & Output 01/13/18 01/14/18 01/15/18 01/16/18 11:59 11:59 11:59 11:59 Intake Total 260 / 260 740 / 740 Output Total 1700 / 1700 650 / 650 Balance -1440 / -1440 90 / 90 Weight 150 lb 4 oz 150 lb 4 oz Microbiology Reports for the Last 24 Hours: Microbiology 01/14/18 19:45 Blood Blood Culture - Preliminary NO GROWTH AFTER 24 HOURS 01/14/18 19:45 Blood Blood Culture - Preliminary NO GROWTH AFTER 24 HOURS 01/15/18 08:00 Sputum - Expectorated Sputum Gram Stain - Final 01/15/18 08:00 Sputum - Expectorated Sputum Sputum Culture - Final Narrative: He is in no distress sitting up in bed. Lungs have fair aeration and no wheezing this morning. Heart rate is irregular. Feet are without edema Assessment and Plan (1) Acute exacerbation of chronic obstructive airways disease Current visit: Yes Status: Acute Category: Medical Code(s): J44.1 - Chronic obstructive pulmonary disease with (acute) exacerbation (2) Atrial fibrillation Current visit: No Status: Acute Category: Medical Code(s): I48.91 - Unspecified atrial fibrillation (3) Cardiac pacemaker in situ Problem details: Current visit: No Status: Chronic Category: Medical Code(s): Z95.0 - Presence of cardiac pacemaker - Assessment and plan all Dx Assessment and Plan for all problems:: Continue current care. Patient may be able to be discharged tomorrow.
[2018-01-16 12:01] LABS: POC Glucose,Bedside 279 mg/dL (70-110)
[2018-01-16 17:28] LABS: POC Glucose,Bedside 402 mg/dL (70-110)
--- NOTE | 2018-01-16 17:33 | PC.NURSE ---
1700 - blood glucose 402 - call placed to Dr Li, service delivery consultant for Dr Carter. New orders received to change sliding scale to high intensity and to give 20 units of Humalog now. Orders repeated back and verified by Dr Li. Orders faxed to pharmacy.
--- NOTE | 2018-01-16 17:57 | PC.NURSE ---
PT IS A&Ox4 IN NAD. VSS. AFEBRILE. HEART RATE REG. LUNGS CTA. 02 @ 2LPM VIA NC IN PLACE. PT DENIES ANY C/O AT THIS TIME. (L)FA IV SALINE LOCKED; FLUSHES EASILY /C GOOD BLOOD RETURN. BED IN LOW POSITION, CALL ALICEA WITHIN REACH. WILL CONTINUE TO MONITOR.
--- NOTE | 2018-01-16 19:03 | PC.NURSE ---
Report given to Sky Delacruz RN
--- NOTE | 2018-01-16 19:15 | PC.NURSE ---
PT FULL CODE, REPORT FROM PARTHA
[2018-01-16 21:44] LABS: POC Glucose,Bedside 319 mg/dL (70-110)
[2018-01-17] VITALS (9 sets, daily range): BP systolic 134–161; BP diastolic 68–89; PULSE 70–85; RESP 18–20; TEMP 36.6–37.1; O2SAT 90–95; BMI 20.3
--- NOTE | 2018-01-17 04:36 | PC.NURSE ---
PT SLEPT INTERVALS THIS SHIFT. AMBIEN GIVEN PER PT REQUEST HS. IV SECURE AND PATENT, CONTINUES ON IV STEROIDS. RESPIRATIONS ARE EVEN AND UNLABORED WITH CLEAR BREATH SOUNDS. OCCASIONAL NON-PRODUCTIVE COUGH. NO C/O PAIN OR DISCOMFORT. PT VERY PLEASANT STATED STILL FEELS WEAK, BUT FEELING SOME BETTER. PACED RHYTHM ON THE MONITOR. DENIES ANY CHEST PAIN OR SOA. STABLE. WILL CONTINUE TO MONITOR. REPORT TO BE GIVEN TO ONCOMING NURSE.
[2018-01-17 06:26] LABS: POC Glucose,Bedside 222 mg/dL (70-110)
--- NOTE | 2018-01-17 07:18 | PC.NURSE ---
REPORT GIVEN TO Jose JORGE W/C
--- NOTE | 2018-01-17 07:26 | PC.NURSE ---
0710 - Report received from Sky Delacruz RN
--- NOTE | 2018-01-17 07:34 | CA_ITS ---
PROCEDURE: 2-D M-mode and color Doppler study INDICATIONS FOR THE TEST: Chest pain COPD+ Heart Murmur Tobacco Smoking Palpitations Fatigue Syncope Edema+ Hypertension+Diabetes Mellitus+ Rheumatic Fever SOB+MCPHERSON Obesity Hyperlipidemia+ Family History HD Additional History PATIENT INFORMATION HEIGHT:72 WEIGHT:150 GENDER: Male B/P:120/64 2-D/M-MODE INTERPRETATION: 2-D MEASUREMENTS OBSERVED VALUES IN CMS Right Ventricular Dimension (RVDd) 2.7 Interventricular Septum (Thickness)(IVsd) 1.0 Left Ventricular Internal Dimensions(LVIDd) 4.9 Left Ventricular Posterior Wall (Thickness)(LVPWd) 0.9 Aortic Root 3.3 Aortic Cusp Separation 1.6 Left Atrial Dimensions (LAD) 4.8 2D 1. Left atrium is moderately enlarged, left ventricle is normal size, there is mild concentric left ventricular hypertrophy, visually estimated ejection fraction 55% with no obvious regional wall motion abnormality, there is abnormal septal motion. 2. The right atrium is moderately enlarged, right ventricle is mildly dilated normal contractility, there is a pacemaker lead seen in the right atrium and right ventricle. 3. The aortic valve is thickened and calcified leaflet continue to display mobility. 4. The mitral and tricuspid valve leaflets are minimally thickened. 5. The pulmonic valve is poorly visualized. 6. No significant pericardial effusion noted. DOPPLER INTERROGATION: Doppler interrogation of the aortic, mitral and tricuspid valvular presence of mild mitral and moderate tricuspid regurgitation, calculated right ventricular systolic pressure is 62 mmHg consistent with moderate pulmonary hypertension, grade 1 diastolic dysfunction seen with tissue Doppler evidence of raised left atrial pressure. CONCLUSION: 1. Moderate biatrial enlargement, normal left ventricular size, mild concentric left ventricular hypertrophy, visually estimated ejection fraction 55% with no obvious regional wall motion abnormality, grade 1 diastolic dysfunction seen with tissue Doppler evidence of raised left atrial pressure. 2. Mildly enlarged right ventricle with normal contractility. 3. Mild mitral and moderate tricuspid regurgitation, calculated right ventricular systolic pressure is 62 mmHg consistent with moderate pulmonary hypertension 4. No significant pericardial effusion noted.
--- NOTE | 2018-01-17 08:17 | HMH.ACPN ---
Internal Medicine - PN: Subj *Date: 01/17/18 *Time: 08:17 Interval history: Frail, elderly male, resting in bed for bedside echo. He reports that he rested well overnight, overall feels better compared to admission. Requiring less supplemental oxygen. Cough is less. Denies pain. Exam Vital signs and Labs for Last 24 Hours: Temp Pulse Resp BP Pulse Ox 97.8 F 80 18 134/68 91 L 01/17/18 07:55 01/17/18 07:55 01/17/18 07:55 01/17/18 07:55 01/17/18 07:55 Laboratory Results - last 24 hr 01/16/18 11:40: POC Glucose 279 01/16/18 17:07: POC Glucose 402 01/16/18 20:14: POC Glucose 319 01/17/18 06:06: POC Glucose 222 I & O for Last 24 hours: Intake & Output 01/14/18 01/15/18 01/16/18 01/17/18 11:59 11:59 11:59 11:59 Intake Total 260 / 260 790 / 790 820 / 820 Output Total 1700 / 1700 650 / 650 975 / 975 Balance -1440 / -1440 140 / 140 -155 / -155 Weight 150 lb 4 oz 150 lb 4 oz 150 lb 3.991 oz Microbiology Reports for the Last 24 Hours: Microbiology 01/14/18 19:45 Blood Blood Culture - Preliminary NO GROWTH AFTER 48 HOURS 01/14/18 19:45 Blood Blood Culture - Preliminary NO GROWTH AFTER 48 HOURS Narrative: Heart with RRR, midline chest scar, pacemaker. No edema. Lungs are clear, poor air movement. Abdomen soft, thin, NT/ND, BS present. No edema. Alert and oriented. Assessment and Plan (1) Acute exacerbation of chronic obstructive airways disease Current visit: Yes Status: Acute Category: Medical Code(s): J44.1 - Chronic obstructive pulmonary disease with (acute) exacerbation (2) Atrial fibrillation Current visit: No Status: Acute Category: Medical Code(s): I48.91 - Unspecified atrial fibrillation (3) Cardiac pacemaker in situ Problem details: Current visit: No Status: Chronic Category: Medical Code(s): Z95.0 - Presence of cardiac pacemaker - Assessment and plan all Dx Assessment and Plan for all problems:: Plan to DC home today with supplemental oxygen and nebulizers assuming preliminary echo is without significant findings.
[2018-01-17 11:00] LABS: POC Glucose,Bedside 202 mg/dL (70-110)
--- NOTE | 2018-01-17 14:13 | HMH.DCSUM ---
General - General Admission date: 01/15/18 Discharge date: 01/17/18 HPI HPI: 82-year-old male with COPD and recent history of pacemaker placement presented to the emergency department after onset of cold symptoms this week with progressive dyspnea. However in talking to the patient he reports dyspnea has really been progressive over the last several months. On presentation to the emergency department the patient appeared dyspneic and was wheezing and he was admitted for COPD exacerbation. Patient denies chest pain. This morning he states he feels well as long as he is laying down, but with mild exertion such as to the bathroom he becomes short of breath. He has noticed some pedal edema over the last 3-4 days as well. Chest x-ray in the emergency department was initially interpreted as a right lower lobe pneumonia but has since been read as scarring with early vascular congestion. Patient denies orthopnea, paroxysmal nocturnal dyspnea. He admits when he exerts himself he gets a tight sensation occasionally in the chest and difficulty breathing. Patient has seen local cardiology and has undergone cardiac catheterization by Dr. Lo as well as pacemaker insertion Hospital Course Hospital Course: Placed on community-acquired protocol with IV levaquin, solumedrol and continuous oxygen. He was able to wean oxygen down to 1-2L per NC which is baseline for him. Labs were unremarkable and cultures are without growth. Echo was performed this morning due to his cardiac history and recent increase in respiratory symptoms, prelim report shows EF > 50%. Exam is improved overall, he feels at baseline and ready to DC. Will send home to complete PO levaquin, prednisone and start nebulizer therapy with Duoneb. Follow-up will be with Dr Lo in about [address] Carter in 1-2 weeks. Objective Vital signs: Temp Pulse Resp BP Pulse Ox 98.7 F 80 20 161/89 94 L 01/17/18 11:47 01/17/18 11:47 01/17/18 11:47 01/17/18 11:47 01/17/18 11:47 Narrative: Pleasant elderly male, NAD. Resting in bed with oxygen by NC. No increased work of breathing. Heart has a RRR, pacemaker noted, mid-sternal scar. Abdomen thin, soft, ND/ND. Lung bases are coarse with diminished air movement but no wheezing or rales this morning. No edema. Results Labs on day of discharge: Labs from last 24 hours 01/17/18 01/17/18 01/16/18 10:46 06:06 20:14 POC Glucose 202 222 319 01/16/18 17:07 POC Glucose 402 Preliminary micro results at discharge 01/14/18 19:45 Blood Culture - Preliminary Blood NO GROWTH AFTER 48 HOURS 01/14/18 19:45 Blood Culture - Preliminary Blood NO GROWTH AFTER 48 HOURS DS: Diagnosis - Discharge Diagnosis (1) Acute exacerbation of chronic obstructive airways disease Status: Acute (2) Atrial fibrillation Status: Chronic (3) Cardiac pacemaker in situ Status: Chronic Problem details: Discharge Plan - Patient Discharge Instructions ACTIVITY: Continue current activity - Follow up Plan Follow up with: Haseeb Carter MD [Primary Care Provider] - 1 week Mark Lo MD [Staff Physician] - 2 weeks Disposition: Home, Self-Halfway Medications: Home Medications Medication Instructions Recorded Confirmed Type Albuterol Sulfate [Proair 90 mcg IH DAILY 11/12/17 01/14/18 History Respiclick] Fluticasone/Salmeterol 0 each IH DAILY 11/12/17 01/14/18 History [Fluticasone/Salmeterol 250/50mcg diskus] Ondansetron HCl [Ondansetron 4mg 4 mg PO Q8HP PRN 11/12/17 01/15/18 History Tab] Pantoprazole Sodium [Protonix 40mg 40 mg PO HS 11/12/17 01/15/18 History tablet] RX: Fludrocortisone Acetate 0.1 mg IH HS 11/12/17 01/15/18 History [Florinef 0.1mg tablet] RX: Nitroglycerin 0.4 mg SL NEEDED PRN 11/12/17 01/14/18 History Rivaroxaban [Xarelto] 20 mg PO HS 11/12/17 01/15/18 History Simvastatin [Zocor] 40 mg PO HS 11/12/1712/30
--- NOTE | 2018-01-17 14:17 | P.DS_ITS ---
General - General Admission date: 01/15/18 Discharge date: 01/17/18 HPI HPI: 82-year-old male with COPD and recent history of pacemaker placement presented to the emergency department after onset of cold symptoms this week with progressive dyspnea. However in talking to the patient he reports dyspnea has really been progressive over the last several months. On presentation to the emergency department the patient appeared dyspneic and was wheezing and he was admitted for COPD exacerbation. Patient denies chest pain. This morning he states he feels well as long as he is laying down, but with mild exertion such as to the bathroom he becomes short of breath. He has noticed some pedal edema over the last 3-4 days as well. Chest x-ray in the emergency department was initially interpreted as a right lower lobe pneumonia but has since been read as scarring with early vascular congestion. Patient denies orthopnea, paroxysmal nocturnal dyspnea. He admits when he exerts himself he gets a tight sensation occasionally in the chest and difficulty breathing. Patient has seen local cardiology and has undergone cardiac catheterization by Dr. Lo as well as pacemaker insertion Hospital Course Hospital Course: Placed on community-acquired protocol with IV levaquin, solumedrol and continuous oxygen. He was able to wean oxygen down to 1-2L per NC which is baseline for him. Labs were unremarkable and cultures are without growth. Echo was performed this morning due to his cardiac history and recent increase in respiratory symptoms, prelim report shows EF > 50%. Exam is improved overall, he feels at baseline and ready to DC. Will send home to complete PO levaquin, prednisone and start nebulizer therapy with Duoneb. Follow-up will be with Dr Lo in about [address] Carter in 1-2 weeks. Objective Vital signs: Temp Pulse Resp BP Pulse Ox 98.7 F 80 20 161/89 94 L 01/17/18 11:47 01/17/18 11:47 01/17/18 11:47 01/17/18 11:47 01/17/18 11:47 Narrative: Pleasant elderly male, NAD. Resting in bed with oxygen by NC. No increased work of breathing. Heart has a RRR, pacemaker noted, mid-sternal scar. Abdomen thin, soft, ND/ND. Lung bases are coarse with diminished air movement but no wheezing or rales this morning. No edema. Results Labs on day of discharge: Labs from last 24 hours 01/17/18 01/17/18 01/16/18 10:46 06:06 20:14 POC Glucose 202 222 319 01/16/18 17:07 POC Glucose 402 Preliminary micro results at discharge 01/14/18 19:45 Blood Culture - Preliminary Blood NO GROWTH AFTER 48 HOURS 01/14/18 19:45 Blood Culture - Preliminary Blood NO GROWTH AFTER 48 HOURS DS: Diagnosis - Discharge Diagnosis (1) Acute exacerbation of chronic obstructive airways disease Status: Acute (2) Atrial fibrillation Status: Chronic (3) Cardiac pacemaker in situ Status: Chronic Problem details: Discharge Plan - Patient Discharge Instructions ACTIVITY: Continue current activity - Follow up Plan Follow up with: Haseeb Carter MD [Primary Care Provider] - 1 week Mark Lo MD [Staff Physician] - 2 weeks Disposition: Home, Self-Correction Medications: Home Medications Medication Instructions Recorded Confirmed Type Albuterol Sulfate [Proair 90 mcg IH DAILY 11/12/17 01/14/18 History
--- NOTE | 2018-01-17 15:03 | DIET.NUTRFU ---
Diet hx obtained. Pt lives at home with a caregiver who shops and prepares meals for him. He reports he had lost approx 50 lbs weight over the past 2 years, but since the caregiver moved in with him, he has slowly been gaining weight back. He is a diabetic and performs finger sticks at home. His blood sugars are around 135 at home. BMI 20.9. 82 yr male with copd. Currently po intakes are excellent at 75-100% of 1500 ada diet. POC glucose has been elevated 319,402,279 related to steroid use. Educated pt on Glucerna supplements for home when he is unable to eat or if he begins to lose weight. Sample Glucerna provided to take home. Pt voices understanding.
== END 2018-01-17 15:19 | disposition home or self-care (01) | DRG 192 ==
LOC: ER 17:53 → 2ND 18:07
PROVIDERS: Admitting Provider Family Medicine; Emergency Provider Family Medicine; PCP Internal Medicine Adolescent Medicine; Visit Provider Internal Medicine Adolescent Medicine
DX: J44.1 Chronic obstructive pulmonary disease with (acute) exacerbation (principal); I48.91 Unspecified atrial fibrillation; E11.9 Type 2 diabetes mellitus without complications; Z95.0 Presence of cardiac pacemaker; Z95.1 Presence of aortocoronary bypass graft; Z95.5 Presence of coronary angioplasty implant and graft; I25.10 Atherosclerotic heart disease of native coronary artery without angina pectoris; I10 Essential (primary) hypertension; Z87.891 Personal history of nicotine dependence; K21.9 Gastro-esophageal reflux disease without esophagitis
CPT/HCPCS: 36415; 71046; 80048; 80053; 81001; 82550; 82553; 82962; 84484; 85025; 87040; 87205; 93005; 93306; 94640; 94761; 99284; J1956

== ENCOUNTER → 2018-03-08 15:00 | Outpatient (POV) | payer MEDICARE, MEDICAID, SELFPAY ==
[2018-03-08 17:01] LABS: Basophils % 0.4 % (0.1-2.0); Eosinophils # 0.2 K/mm3 (0.0-0.4); Eosinophils % 2.1 % (0.1-12.0); Hematocrit 32.7 % (42.0-52.0); Lymphocytes % 27.4 K/mm3 (10-50); Mean Corpuscular HGB Conc 30.5 g/dL (31.8-35.4); Mean Corpuscular Hemoglobin 24.4 pg (27.0-31.2); Mean Corpuscular Volume 80.1 fl (80-94); Mean Platelet Volume 8.4 fl (7.4-10.4); Monocytes # 0.4 K/mm3 (0.1-1.0); Monocytes % 6.1 % (1.7-9.3); Neutrophils # 4.7 K/mm3 (1.8-7.8); Neutrophils % 64.1 % (37.0-80.0); Platelet Count 283 K/mm3 (142-424); Red Blood Count 4.08 M/mm3 (4.60-6.20); Red Cell Distribution Width 15.5 % (11.5-17.5); White Blood Count 7.3 K/mm3 (4.8-10.8)
[2018-03-08 20:06] LABS: Alanine Aminotransferase 14 U/L (12-78); Albumin Level 3.6 gm/dL (3.4-5.0); Alkaline Phosphatase 87 U/L (46-116); Anion Gap 12.3 mEq/L (5-15); Aspartate Amino Transferase 14 U/L (15-37); Bilirubin,Total 0.9 mg/dL (0.2-1.0); Blood Urea Nitrogen 22 mg/dL (7-18); Calcium 9.3 mg/dL (8.5-10.1); Carbon Dioxide 30 mmol/L (21.0-32.0); Chloride 107 mmol/L (98-107); Creatinine,Serum 0.98 mg/dL (0.70-1.30); Estimated Glomerular Filt Rate 73 ml/min (>60); GFR (African American) 89 ML/MIN (>60); Globulin 3.5 gm/dl (1.3-3.2); Glucose 107 mg/dL (74-106); Potassium 3.3 mmoL/L (3.5-5.1); Sodium 146 mmol/L (136-145); Total Protein,Serum 7.1 gm/dL (6.4-8.2)
[2018-03-10 08:26] LABS: Iron 27 ug/dL (38-169); UIBC 295 ug/dL (111-343)
[2018-03-10 10:32] LABS: Iron Saturation 8 % (15-55)
== END ==
PROVIDERS: PCP Internal Medicine Adolescent Medicine; Visit Provider Internal Medicine
DX: D50.0 Iron deficiency anemia secondary to blood loss (chronic) (principal)
CPT/HCPCS: 36415; 80053; 83550; 85025

== ENCOUNTER → 2018-03-17 10:06 | Outpatient (CLI) | payer MEDICARE, MEDICAID, SELFPAY ==
--- NOTE | 2018-03-17 10:20 | CA_ITS ---
PROCEDURE: 2-D M-mode and color Doppler study INDICATIONS FOR THE TEST: Chest pain COPD+ Heart Murmur Tobacco Smoking Palpitations Fatigue+ Syncope Edema Hypertension+Diabetes Mellitus Rheumatic Fever SOB+MCPHERSON Obesity Hyperlipidemia+ Family History HD Additional History CAD, AFIB, PACEMAKER PATIENT INFORMATION HEIGHT: 72 WEIGHT:154 GENDER: Male B/P:132/61 2-D/M-MODE INTERPRETATION: 2-D MEASUREMENTS OBSERVED VALUES IN CMS Right Ventricular Dimension (RVDd) 3.2 Interventricular Septum (Thickness)(IVsd) 1.7 Left Ventricular Internal Dimensions(LVIDd) 3.6 Left Ventricular Posterior Wall (Thickness)(LVPWd) 1.4 Aortic Root 3.8 Aortic Cusp Separation 1.5 Left Atrial Dimensions (LAD) 4.4 2D 1. Left atrium is mildly enlarged, left ventricle is normal size, mild concentric left ventricular hypertrophy, visually estimated ejection fraction 55% with no obvious regional wall motion abnormality.There is abnormal septal motion. 2. The right atrium and right ventricle are mildly enlarged with normal contractility., There is a pacemaker lead seen in the right atrium and right ventricle. 3. The aortic valve is minimally thickened and calcified, leaflet continue to display good mobility. 4. The mitral and tricuspid valve leaflets are minimally thickened. 5. The pulmonic valve is poorly visualized. 6. No significant pericardial effusion noted. DOPPLER INTERROGATION: Doppler interrogation of the aortic, mitral and tricuspid valvular presence of moderate mitral and moderate tricuspid regurgitation, calculated right ventricular systolic pressure is 53 mmHg consistent with moderate pulmonary hypertension. Diastolic parameters are inconclusive. CONCLUSION: 1. Biatrial enlargement, normal left ventricular size, mild concentric left ventricular hypertrophy, visually estimated ejection fraction 55% with no obvious regional wall motion abnormality, there is abnormal septal motion. 2. Moderate mitral and moderate tricuspid regurgitation, calculated right ventricular systolic pressure is 53 mmHg consistent with moderate pulmonary hypertension. 3. Mildly enlarged right ventricle with normal contractility 4. No significant pericardial effusion noted.
--- NOTE | 2018-03-17 11:04 | CT_ITS ---
CT chest wo con HISTORY: Lung mass, shortness of air, COPD ITS.REASON: COPD, GERD ORDERING PHYSICIAN: Lamin Gee MD PATIENT AGE: 82 years COMPARISON: 10/20/2017 Technique: Axial images obtained. Sagittal and coronal reformatted images are also generated and reviewed. All CT scans at the facility use one or more dose reduction, viz: automated exposure control; ma/kV adjustment per patient size (including targeted exams where dose is matched to indication; i.e. head); or iterative reconstruction technique. FINDINGS: Study performed without IV contrast. Atherosclerotic changes involving the aorta. There has been a prior CABG. Small nodes are present within the mediastinum not significant changed. There is cardiomegaly. No obvious pericardial effusion. There are centrilobular emphysematous changes. There is diffuse thickening of the interstitium which is developed since previous exam and may be due to interstitial edema or pneumonitis. Ovoid mass once again noted in the right lung base posteriorly 5.6 x 2.7 cm similar to the previous exam. Loculated right pleural effusion once again noted slightly increased in volume. There is pleural thickening around the effusion inferiorly. There is trace left-sided effusion with atelectatic or fibrotic changes in the left lower lobe. There is mild thickening of the left major fissure. Previously there was thrombus within a subsegmental pulmonary artery. This is not adequately evaluated without IV contrast. Upper abdominal images show cholelithiasis. There are bilateral renal artery stents. No acute bony anomalies. IMPRESSION: 1. Diffuse increased interstitial markings and may be related to interstitial edema from CHF, plasma volume overload, or interstitial pneumonitis. 2. No change void 5.6 cm mass in the right lower lobe posteriorly. 3. Slight increase in size of loculated right-sided pleural effusion. Trace left pleural effusion. 4. Centrilobular emphysema with scattered fibrotic changes
== END ==
PROVIDERS: PCP Internal Medicine Adolescent Medicine; Referring Provider Internal Medicine; Visit Provider Internal Medicine
DX: R91.8 Other nonspecific abnormal finding of lung field (principal); I26.99 Other pulmonary embolism without acute cor pulmonale; R06.00 Dyspnea, unspecified; D50.0 Iron deficiency anemia secondary to blood loss (chronic); K21.9 Gastro-esophageal reflux disease without esophagitis; J43.9 Emphysema, unspecified; D50.9 Iron deficiency anemia, unspecified
CPT/HCPCS: 36415; 71250; 80053; 82565; 83550; 83880; 84520; 85025; 93306

== ENCOUNTER → 2018-03-17 10:14 | Outpatient (CLI) | payer MEDICARE, MEDICAID, SELFPAY ==
[2018-03-17 10:53] LABS: Basophils % 0.7 % (0.1-2.0); Eosinophils # 0.2 K/mm3 (0.0-0.4); Eosinophils % 2.6 % (0.1-12.0); Hematocrit 34.1 % (42.0-52.0); Hemoglobin 10.3 g/dL (14.1-18.0); Lymphocytes # 1.8 K/mm3 (0.7-4.5); Lymphocytes % 28.1 K/mm3 (10-50); Mean Corpuscular HGB Conc 30.1 g/dL (31.8-35.4); Mean Corpuscular Hemoglobin 24.5 pg (27.0-31.2); Mean Corpuscular Volume 81.3 fl (80-94); Mean Platelet Volume 7.7 fl (7.4-10.4); Monocytes # 0.3 K/mm3 (0.1-1.0); Monocytes % 4.9 % (1.7-9.3); Neutrophils % 63.7 % (37.0-80.0); Platelet Count 297 K/mm3 (142-424); Red Blood Count 4.19 M/mm3 (4.60-6.20); White Blood Count 6.3 K/mm3 (4.8-10.8)
[2018-03-17 11:09] LABS: Alanine Aminotransferase 12 U/L (12-78); Albumin Level 3.6 gm/dL (3.4-5.0); Albumin/Globulin Ratio 0.9 (1.1-1.8); Alkaline Phosphatase 90 U/L (46-116); Anion Gap 15.3 mEq/L (5-15); Aspartate Amino Transferase 12 U/L (15-37); Blood Urea Nitrogen 18 mg/dL (7-18); Calcium 9.3 mg/dL (8.5-10.1); Carbon Dioxide 28 mmol/L (21.0-32.0); Chloride 106 mmol/L (98-107); Creatinine,Serum 1.02 mg/dL (0.70-1.30); Estimated Glomerular Filt Rate 70 ml/min (>60); GFR (African American) 85 ML/MIN (>60); Globulin 3.8 gm/dl (1.3-3.2); Glucose 121 mg/dL (74-106); Potassium 4.3 mmoL/L (3.5-5.1); Sodium 145 mmol/L (136-145); Total Protein,Serum 7.4 gm/dL (6.4-8.2)
[2018-03-18 08:34] LABS: Iron 28 ug/dL (38-169); UIBC 330 ug/dL (111-343)
[2018-03-18 13:02] LABS: Iron Saturation 8 % (15-55)
== END ==
PROVIDERS: Internal Medicine; PCP Internal Medicine Adolescent Medicine; Visit Provider Internal Medicine
DX: R06.00 Dyspnea, unspecified (principal); I10 Essential (primary) hypertension; D50.0 Iron deficiency anemia secondary to blood loss (chronic)
CPT/HCPCS: 36415; 80053; 82565; 83550; 83880; 84520; 85025

== ENCOUNTER 2018-03-22 16:55 | Observation (INO) ==
--- NOTE | 2018-03-22 17:08 | Emergency Department Note ---
ED Disposition Clinical Impression: Hemoptysis, Dyspnea Disposition: Still a Patient Condition on Discharge: Fair - Critical Care Critical Care Time: No Attestation: On , the high probability of a clinically significant, sudden or life threatening deterioration of the following system(s) required my full and direct attention, intervention and personal management. The time I documented below is in addition to time spent performing reported procedures but includes the following listed in this critical care notation. Medical Decision Making - Edmar Inquiry Pt receiving controlled substance: No Vital Signs: 03/22/18 16:58 03/22/18 18:55 Temperature 98.6 F Temperature Source Oral Pulse Rate [Right Brachial] 77 80 Respiratory Rate 24 16 Blood Pressure [Right Arm] 122/61 138/65 Blood Pressure Mean [Right Arm] 81 89 Blood Pressure Source [Right Arm] Automatic Cuff Automatic Cuff Blood Pressure Position [Right Arm] Sitting Sitting 02 Sat by Pulse Oximetry 91 L 95 Oxygen Delivery Method Room Air Room Air - Lab Data Lab Results 03/22/18 17:09: WBC 10.1, RBC 4.62, Hgb 10.3 L, Hct 36.6 L, MCV 79.2 L, MCH 22.4 L, MCHC 28.3 L, RDW 15.4, Plt Count 302, MPV 7.4, Neut % (Auto) 78.6, Lymph % (Auto) 16.0, [place] % (Auto) 4.6, Eos % (Auto) 0.7, Baso % (Auto) 0.2, Neut # (Auto) 7.9 H, Lymph # (Auto) 1.6, [place] # (Auto) 0.5, Eos # (Auto) 0.1, Baso # (Auto) 0.0 03/22/18 17:09: Sodium 138, Potassium 4.0, Chloride 100, Carbon Dioxide 25, Anion Gap 17.0 H, BUN 31 H, Creatinine 1.41 H, Estimated Creat Clear 49, Estimated GFR 48 L, Est GFR ( Amer) 58 L, Glucose 149 H, Calcium 9.8, Total Bilirubin 1.4 H, AST 12 L, ALT 13, Alkaline Phosphatase 84, Troponin I < 0.02, Total Protein 7.6, Albumin 3.4, Globulin 4.2 H, Albumin/Globulin Ratio 0.8 L 03/22/18 17:09: B-Natriuretic Peptide 355 H 03/22/18 17:09: D-Dimer 1000 H* Result diagrams: 03/22/18 17:09 03/22/18 17:09 Orders (Tests/Meds): ORDERS Category Date Time Status XR chest portable Stat Exams 03/22/18 16:57 Taken - Radiology Data #1 Image(s): Chest Image Reviewed: Yes I reviewed the patient's radiology image worsening interstitial airsp dz R lung with R effusion, small L effusion - ECG Data Tracing #1 EKG interpreted by Justo Rodney MD: Rhythm: Ventricular paced rhythm Rate: 80 No evidence of acute ischemia or injury - Physician Consults Physician Consulted: Shalini Carter Time: 19:15 Reason -: Admission Comment/Response: I have discussed the case with Dr. Loya for Dr. Carter who agrees to admit the patient to the hospital. We discussed the patient's clinical information, including history, exam, laboratory and radiology results and ED course. Per hospital procedure, I will write temporary bridge inpatient orders on the patient. Specific orders requested by the admitting physician: We discussed elevated d-dimer. Given that the patient is already on Xarelto and kidney function has worsened, it is felt that risk of CT angiogram outweighs benefits at this time. He recommends keeping patient on Xarelto and this can be addressed by Dr. Carter tomorrow. He request the patient be put on steroids and nebulizer treatments. Also defer antibiotics and any additional diuretics at this time. General Adult HPI - General Chief complaint: Shortness of Breath/Dyspnea Stated complaint: shortness of air Time Seen by Provider: 03/22/18 17:15 Mode of Arrival: Wheelchair Limitations: No Limitations Description of Symptoms (Recalled from ER Triage Doc. by RN): weakness and shortness of air that has progressed - History of Present Illness HPI narrative: Main complaint is shortness of breath and hemoptysis. Has had progressively worsening shortness of breath for some time. Predominantly has dyspnea on exertion, cannot walk across the room without becoming severely dyspneic. Began coughing up blood yesterday. He says he had hemoptysis about 6 months ago when he was started on iron for anemia. He stopped taking the iron at that time. He says he was started back on it again and began coughing up blood again. Family called Dr. Lo and Dr. Gee, both of whom he is seen recently regarding his shortness of breath and they advised him to come to the emergency room today. He denies chest pain. No fever. He states that they have told him that he is "losing blood", but nobody has found where he is losing blood from. He has COPD and has been diagnosed with congestive heart failure. He has a pacemaker. He has a history of atrial fibrillation. He is on Xarelto. - Related Data Home Medications Medication Instructions Recorded Confirmed Albuterol Sulfate [Proair 90 mcg IH DAILY 11/12/17 03/22/18 Respiclick] Fludrocortisone Acetate [Florinef 0.1 mg IH HS 11/12/17 03/22/18 0.1mg tablet] Fluticasone/Salmeterol 0 each IH DAILY 11/12/17 03/22/18 [Fluticasone/Salmeterol 250/50mcg diskus] Nitroglycerin 0.4 mg SL NEEDED PRN 11/12/17 03/22/18 Pantoprazole Sodium [Protonix 40mg 40 mg PO HS 11/12/17 03/22/18 tablet] Rivaroxaban [Xarelto] 20 mg PO HS 11/12/17 03/22/18 Simvastatin [Zocor] 40 mg PO HS 11/12/17 03/22/18 Tamsulosin HCl [Flomax] 0.4 mg PO HS 11/12/17 03/22/18 Clopidogrel Bisulfate [Plavix 75mg 75 mg PO HS 01/14/18 03/22/18 Tab] Gabapentin [Gabapentin 100mg Cap] 100 mg PO HS 01/14/18 03/22/18 Levothyroxine Sodium 50 mcg PO HS 01/14/18 03/22/18 [Levothyroxine 50mcg (0.05mg) Tab] raNITIdine HCl [Zantac] 150 mg PO HS 01/14/18 03/22/18 Amlodipine Besylate [Amlodipine 10 mg PO DAILY 01/15/18 03/22/18 10mg Tab] Ferrous Sulfate [Ferrous Sulfate 325 mg PO DAILY 01/15/18 03/22/18 325mg Tablet] Metformin HCl 1,000 mg PO BID 01/15/18 03/22/18 Furosemide [Furosemide 20mg Tab] 20 mg PO QAM 03/22/18 03/22/18 levoFLOXacin [Levaquin 500mg 500 mg PO DAILY 03/22/18 03/22/18 tab] Previous Rx's Medication Instructions Recorded Ipratropium/Albuterol Sulfate 3 ml IH Q4HP PRN 30 Days #120 01/17/18 [Duoneb 3mL neb] ampul.neb Nebulizer and Compressor [Portable 1 each MC Q4H PRN 30 Days #1 each 01/17/18 Nebulizer System] Allergies Allergy/AdvReac Type Severity Reaction Status Date / Time Penicillins Allergy Severe throat Verified 01/15/18 08:05 closure [facility] History I have reviewed the patient's past medical history: Yes Medical History: Reports:: Atrial Fibrillation, Chronic Obstructive Pulmonary Disease (COPD), Coronary Artery Disease, Diabetes Mellitus Type 1, Gastroesophageal Reflux Disease(GERD), Home Oxygen, Hyperlipidemia, Hypertension , Internal Pacemaker, Renal Disease Denies:: Cancer, Diabetes Mellitus Type 2, MRSA, Seizures Other Medical History: Reports: Anemia, Arthritis, Blood Transfusion Reaction, Cataracts, Hypothyroidism Comment: Reviewed recent medical records. Admitted here January 14- for COPD exacerbation. Recent imaging: CT scan of the chest on 03/18/18 showed diffuse increase interstitial markings and may be related to interstitial edema from CHF , plasma volume overload, or interstitial pneumonitis. No change of an ovoid 5.6 cm mass in the right lower lobe posteriorly. Slight increase in size of loculated right-sided pleural effusion. Trace left pleural effusion. Centrilobular emphysema with scattered fibrotic changes. Echocardiogram showed biatrial enlargement, normal left ventricular size, mild concentric left ventricular hypertrophy. Estimated EF of 55% with no obvious regional wall motion abnormality. Abnormal septal motion. Moderate mitral and tricuspid regurgitation. Mild enlarged right ventricle with normal contractility. No pericardial effusion. Other Surgeries: Yes: CABG, Cardiac Catheterization, Coronary Stent, Hernia Repair, Pacemaker, Other Amputation: No Fractures: No Comment: cabg x4 - Social History Educational Level: Completed High School Smoking Status: Unknown if ever smoked Tobacco Type: cigarettes # Packs/Day (cigarettes): 1 #Yrs smoked (if former smoker): 30 Alcohol Intake: never Occupational Status: retired Housing: house Household Members: caregiver, none - Psychiatric History Expresses thoughts of harming self/others: None Suicide Plan Description: No Plan Family Hx:: Anemia, Bleeding Disorder, Kidney Disease ROS Obtained: Yes All systems reviewed & no additional complaints - Constitutional Constitutional: Denies fever(s) - Cardiovascular Cardiovascular: Denies chest pain, Reports dyspnea on exertion, Denies leg edema - Respiratory Respiratory: Yes cough, Yes dyspnea, Yes coughing up blood Physical Exam - General General appearance: alert, in no apparent distress - Head Head exam: atraumatic, normocephalic, normal inspection - Eye Eye exam: Present: normal appearance, PERRL, EOMI - ENT ENT exam: Present: normal exam, normal oropharynx, mucous membranes moist, TM's normal bilaterally, normal external ear exam - Neck Neck exam: Present: normal inspection, full ROM, trachea midline. Absent: meningismus, lymphadenopathy - Chest Chest inspection: Present: normal inspection, symmetric chest wall rise. Absent : tenderness - Respiratory Respiratory exam: Present: normal lung sounds bilaterally. Absent: respiratory distress - Cardiovascular Cardiovascular exam: Present: regular rate, normal rhythm. Absent: JVD - Abdominal Exam Abdominal exam: Present: soft, normal bowel sounds. Absent: distention, tenderness, guarding - Extremities Exam Extremities exam: Present: normal inspection, full ROM, normal capillary refill. Absent: calf tenderness - Back Exam Back exam: Present: normal inspection. Absent: tenderness - Neurological Exam Neurological exam: Present: alert, oriented X3 - Psychiatric Psychiatric exam: Present: normal affect, normal mood - Skin Skin exam: Present: warm, dry, intact, normal color - Lymphatic Lymphatic Findings: no adenopathy
[2018-03-22 17:34] LABS: Alanine Aminotransferase 13 U/L (12-78); Albumin Level 3.4 gm/dL (3.4-5.0); Albumin/Globulin Ratio 0.8 (1.1-1.8); Alkaline Phosphatase 84 U/L (46-116); Aspartate Amino Transferase 12 U/L (15-37); Bilirubin,Total 1.4 mg/dL (0.2-1.0); Blood Urea Nitrogen 31 mg/dL (7-18); Calcium 9.8 mg/dL (8.5-10.1); Carbon Dioxide 25 mmol/L (21.0-32.0); Chloride 100 mmol/L (98-107); Globulin 4.2 gm/dl (1.3-3.2); Glucose 149 mg/dL (74-106); Sodium 138 mmol/L (136-145); Total Protein,Serum 7.6 gm/dL (6.4-8.2)
[2018-03-22 17:39] LABS: Basophils % 0.2 % (0.1-2.0); Eosinophils # 0.1 K/mm3 (0.0-0.4); Eosinophils % 0.7 % (0.1-12.0); Hematocrit 36.6 % (42.0-52.0); Hemoglobin 10.3 g/dL (14.1-18.0); Lymphocytes # 1.6 K/mm3 (0.7-4.5); Mean Corpuscular HGB Conc 28.3 g/dL (31.8-35.4); Mean Corpuscular Hemoglobin 22.4 pg (27.0-31.2); Mean Corpuscular Volume 79.2 fl (80-94); Mean Platelet Volume 7.4 fl (7.4-10.4); Monocytes # 0.5 K/mm3 (0.1-1.0); Monocytes % 4.6 % (1.7-9.3); Neutrophils # 7.9 K/mm3 (1.8-7.8); Neutrophils % 78.6 % (37.0-80.0); Platelet Count 302 K/mm3 (142-424); Red Blood Count 4.62 M/mm3 (4.60-6.20); Red Cell Distribution Width 15.4 % (11.5-17.5); White Blood Count 10.1 K/mm3 (4.8-10.8)
[2018-03-23 07:03] LABS: Anion Gap 17.4 mEq/L (5-15); Potassium 4.4 mmoL/L (3.5-5.1)
--- NOTE | 2018-03-23 07:58 | History & Physical Report ---
*Admission Date: 03/22/18 *Chief complaint: Hemoptysis and dyspnea *History of present illness: 82-year-old white male with long history of end-stage COPD, recurrent pulmonary embolism and cardiac disease, who came to the emergency department because of dyspnea and some hemoptysis. He actually was in no distress, d-dimer was 1000, and patient has been on Xarelto daily on an ongoing basis. The decision was made to admit without pursuing CT scan in the emergency department because of his elevated creatinine. Cardiology consultation is pending, and this morning patient notes that he feels better. He thinks that his hemoptysis occurs after he takes iron replacment therapy for 3 or 4 days in a row and if he stops this this improves. [facility] History I have reviewed the patient's past medical history: Yes Medical History: Reports:: Atrial Fibrillation, Chronic Obstructive Pulmonary Disease (COPD), Coronary Artery Disease, Diabetes Mellitus Type 2, Gastroesophageal Reflux Disease(GERD), Home Oxygen, Hyperlipidemia, Hypertension , Internal Pacemaker, Renal Disease Denies:: Cancer, Diabetes Mellitus Type 1, MRSA, Seizures Other Medical History: Reports: Anemia, Arthritis, Blood Transfusion Reaction, Cataracts, Hypothyroidism Laterality Cases: Bilateral: Cataract Other Surgeries: Yes: CABG, Cardiac Catheterization, Coronary Stent, Hernia Repair, Pacemaker, Other Amputation: No Fractures: No - *Social History Educational Level: Attended High School Smoking Status: Former smoker Tobacco Type: cigarettes # Packs/Day (cigarettes): 1 #Yrs smoked (if former smoker): 30 Alcohol Intake: never Occupational Status: retired Housing: house Household Members: caregiver, none - Psychiatric History Expresses thoughts of harming self/others: None Suicide Plan Description: No Plan *Family Hx:: No significant family history Review of Systems - Constitutional Denies anorexia, Denies body ache(s), Denies chills - Eyes Denies blind spots, Denies blurry vision, Denies change in vision - ENT Denies abnormal hearing, Denies bleeding gums, Denies change in voice - *Cardiovascular Reports chest pain, Reports chest pain at rest, Reports shortness of breath, Reports shortness of breath with activity, Denies chest pain with activity, Denies generalized swelling, Denies irregular heart rhythm - *Respiratory Reports chest congestion, Denies change in phlegm color - *Gastrointestinal Denies abdominal pain, Denies belching, Denies bloating - *Genitourinary Denies difficulty urinating - *Musculoskeletal Denies abnormal walking Meds Home Medications Medication Instructions Recorded Confirmed Type Albuterol Sulfate [Proair 90 mcg IH DAILY 11/12/17 03/22/18 History Respiclick] Fludrocortisone Acetate [Florinef 0.1 mg IH HS 11/12/17 03/22/18 History 0.1mg tablet] Fluticasone/Salmeterol 0 each IH DAILY 11/12/17 03/22/18 History [Fluticasone/Salmeterol 250/50mcg diskus] Nitroglycerin 0.4 mg SL NEEDED PRN 11/12/17 03/22/18 History Pantoprazole Sodium [Protonix 40mg 40 mg PO HS 11/12/17 03/22/18 History tablet] Rivaroxaban [Xarelto] 20 mg PO HS 11/12/17 03/22/18 History Simvastatin [Zocor] 40 mg PO HS 11/12/17 03/22/18 History Tamsulosin HCl [Flomax] 0.4 mg PO HS 11/12/17 03/22/18 History Gabapentin [Gabapentin 100mg Cap] 100 mg PO HS 01/14/18 03/22/18 History Levothyroxine Sodium 50 mcg PO HS 01/14/18 03/22/18 History [Levothyroxine 50mcg (0.05mg) Tab] raNITIdine HCl [Zantac] 150 mg PO HS 01/14/18 03/22/18 History Amlodipine Besylate [Amlodipine 10 mg PO HS 01/15/18 03/22/18 History 10mg Tab] Ferrous Sulfate [Ferrous Sulfate 325 mg PO DAILY 01/15/18 03/22/18 History 325mg Tablet] Metformin HCl 1,000 mg PO BID 01/15/18 03/22/18 History Furosemide [Furosemide 20mg Tab] 20 mg PO QAM 03/22/18 03/22/18 History Ondansetron HCl [Ondansetron 4mg 4 mg PO Q8HP PRN 03/22/18 03/22/18 History Tab] Allergies Allergy/AdvReac Type Severity Reaction Status Date / Time Penicillins Allergy Severe throat Verified 03/22/18 20:39 closure Exam Vital signs and Labs for Last 24 Hours: Temp Pulse Resp BP Pulse Ox 98.0 F 80 20 109/53 97 03/23/18 07:24 03/23/18 07:24 03/23/18 07:24 03/23/18 07:24 03/23/18 07:24 Laboratory Results - last 24 hr 03/22/18 17:09: WBC 10.1, RBC 4.62, Hgb 10.3 L, Hct 36.6 L, MCV 79.2 L, MCH 22.4 L, MCHC 28.3 L, RDW 15.4, Plt Count 302, MPV 7.4, Neut % (Auto) 78.6, Lymph % (Auto) 16.0, [place] % (Auto) 4.6, Eos % (Auto) 0.7, Baso % (Auto) 0.2, Neut # (Auto) 7.9 H, Lymph # (Auto) 1.6, [place] # (Auto) 0.5, Eos # (Auto) 0.1, Baso # (Auto) 0.0 03/22/18 17:09: Sodium 138, Potassium 4.0, Chloride 100, Carbon Dioxide 25, Anion Gap 17.0 H, BUN 31 H, Creatinine 1.41 H, Estimated Creat Clear 49, Estimated GFR 48 L, Est GFR ( Amer) 58 L, Glucose 149 H, Calcium 9.8, Total Bilirubin 1.4 H, AST 12 L, ALT 13, Alkaline Phosphatase 84, Troponin I < 0.02, Total Protein 7.6, Albumin 3.4, Globulin 4.2 H, Albumin/Globulin Ratio 0.8 L 03/22/18 17:09: B-Natriuretic Peptide 355 H 03/22/18 17:09: D-Dimer 1000 H* 03/23/18 06:26: Sodium 141, Potassium 4.4, Chloride 103, Carbon Dioxide 25, Anion Gap 17.4 H, BUN 34 H, Creatinine 1.45 H, Estimated Creat Clear 38, Estimated GFR 47 L, Est GFR ( Amer) 57 L, Glucose 246 H D I & O for Last 24 hours: Intake & Output 03/20/18 03/21/18 03/22/18 03/23/18 11:59 11:59 11:59 11:59 Output Total 150 / 150 Balance -150 / -150 Weight 146 lb 8 oz Narrative: Patient is pleasant, alert. Able to sit up on his own power. Heart rate regular with old murmur noted. Lungs actually sound clearer than his regular exam with fairly good air entry. Minimal rhonchi. Edema noted. She is able to move all his extremities well. H&P: Result - Labs Labs: Short CBC 03/22/18 Range/Units 17:09 WBC 10.1 (4.8-10.8) K/mm3 Hgb 10.3 L (14.1-18.0) g/dL Hct 36.6 L (42.0-52.0) % Plt Count 302 (142-424) K/mm3 BMP 03/22/18 03/23/18 17:09 06:26 Sodium 138 141 Potassium 4.0 4.4 Chloride 100 103 Carbon Dioxide 25 25 BUN 31 H 34 H Creatinine 1.41 H 1.45 H Glucose 149 H 246 H D Calcium 9.8 Cardiac Enzymes 03/22/18 Range/Units 17:09 Troponin I < 0.02 (0.00-0.06) ng/ml Liver Function 03/22/18 Range/Units 17:09 Total Bilirubin 1.4 H (0.2-1.0) mg/dL AST 12 L (15-37) U/L ALT 13 (12-78) U/L Alkaline Phosphatase 84 (46-116) U/L Albumin 3.4 (3.4-5.0) gm/dL Assessment and Plan (1) Hemoptysis Current visit: Yes Status: Acute Category: Medical Code(s): R04.2 - Hemoptysis (2) Dyspnea Current visit: Yes Status: Chronic Qualifiers: Category: Medical Code(s): R06.00 - Dyspnea, unspecified (3) Acute exacerbation of chronic obstructive airways disease Current visit: No Status: Acute Category: Medical Code(s): J44.1 - Chronic obstructive pulmonary disease with (acute) exacerbation (4) Atrial fibrillation Current visit: No Status: Chronic Qualifiers: Atrial fibrillation type: chronic Qualified Code(s): I48.2 - Chronic atrial fibrillation Category: Medical Code(s): I48.91 - Unspecified atrial fibrillation - Assessment and plan all Dx Assessment and Plan for all problems:: Patient seems in actuality somewhat better than his baseline. We will workup for hemoptysis with VQ scan, although doubt PE given his current anticoagulation therapy, and moderately elevated d-dimer. Cardiology consultation. Continue therapy for COPD exacerbation.
--- NOTE | 2018-03-23 09:25 | Pharmacy Consult Notes ---
[facility] Pharmacy VTE Monitoring - Patient Demographics Admission date: 03/22/18 Report Date: 03/23/18 Time: 09:25 Allergies/Adverse Reactions: Patient Allergies Penicillins Allergy (Severe, Verified 03/22/18 20:39) throat closure Height: 1.83 m Weight: 66.451 kg Patient Problems: Current Active Problems Hemoptysis (Acute) Dyspnea (Chronic) - VTE Risk Labs: VTE Related Lab Results Hgb 10.3 g/dL (14.1-18.0) L 03/22/18 17:09 Hct 36.6 % (42.0-52.0) L 03/22/18 17:09 Plt Count 302 K/mm3 (142-424) 03/22/18 17:09 BUN 34 mg/dL (7-18) H 03/23/18 06:26 Creatinine 1.45 mg/dL (0.70-1.30) H 03/23/18 06:26 Estimated Creat Clear 38 mL/min (0-300) 03/23/18 06:26 Was VTE Risk Assessment Performed: No VTE Risk Level: Low Risk - Prophylaxis VTE Prophylaxis Ordered?: Yes Types of VTE Prophylaxis: Pharmacological Pharmacologic Type: Other (XARELTO)
--- NOTE | 2018-03-23 09:57 | Consult Report ---
History of Present Illness Consult date: 03/23/18 Requesting physician: Haseeb Carter Consult reason: shortness of breath Chief complaint: SOA Additional Medical History:: 1. Coronary artery disease A. History of coronary artery bypass grafting proximally 14 or 15 years ago. B. Cardiac catheterization 05/2016, multivessel disease with recommendation for revascularization, see below.. However due to patient and family concern for recovery from procedure patient and family chose to proceed with coronary stenting. C. Multivessel coronary stenting of the LAD, circumflex and SVG to PDA, 2015 2. Hypertension A. Bilateral renal artery stenosis with bilateral bare-metal stenting, 2015 B. Echo, 03/2018, Biatrial enlargement, normal left ventricular size, mild concentric left ventricular hypertrophy, visually estimated ejection fraction 55 % with no obvious regional wall motion abnormality, there is abnormal septal motion. Moderate mitral and moderate tricuspid regurgitation, calculated right ventricular systolic pressure is 53 mmHg consistent with moderate pulmonary hypertension. Mildly enlarged right ventricle with normal contractility. No significant pericardial effusion noted. 3. 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 History of benign lung biopsy in the past 4. Diabetes mellitus, treated for approximately 10 years. 5. 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 6. CKD, stage II Cardiac cath, 05/2016 ANGIOGRAPHIC RESULTS: 1. The left main artery normal 2. The left anterior descending artery ostially occluded 3. The circumflex artery has a severe proximal 90% concentric stenosis 4. The right coronary artery is proximally occluded 5. The YANEZ ventriculogram reveals preserved ejection fraction estimated at 55-65% 6. The left ventricular end-diastolic pressure is normal at 10 mmHg 7. The left internal mammary artery is a widely patent graft which makes its anastomosis on to a large diagonal artery. Distal to the anastomosis is a eccentric 90% stenosis. This diagonal artery is a 3 mm vessel. After it starts down onto the diagonal artery it then skips over and supplies a smaller caliber LAD system.. Both limbs of the QURESHI graft are widely patent 8. The saphenous vein graft to the circumflex artery system has mild nonflow limiting plaque in its proximal and mid segment. Distally there is what appears to be a valve which is either calcified or densely atheromatous.. This valve is nonmobile and has an 80% stenosis. This valve are stenosis appears immediately adjacent to the anastomosis on to a medium sized bifurcating obtuse marginal artery. Distal to this calcified atheromatous calcified severely stenosed valve is a critical eccentric greater than 90% densely atheromatous stenosis which supplies a large posterior descending artery off the dominant right coronary artery 9. The left renal artery is singular and has an ostial proximal 50-70% stenosis which creates a 35 mm transstenotic gradient upon pulling back a 4 [place] JR 4 catheter 10. The right renal artery is singular and has an ostial 80-90% stenosis. Distally the renal parenchyma and kidney silhouette demonstrates a smaller caliber somewhat atretic kidney IMPRESSION: 1. Critical coronary artery disease as described above. Most notably critical stenosis and a vein graft supplying a large posterior descending artery with severely calcified atheromatous valve proximal to the critical stenosis which supplies a bifurcating obtuse marginal artery 2. Severe stenosis and a 3 mm diagonal artery distal to the anastomosis of the left internal mammary artery 3. Severe [place] stenosis and a large proximal circumflex artery 4. Preserved normal ejection fraction 5. Normal left ventricular end-diastolic pressure 6. Severe bilateral renal artery stenosis PLAN: 1. Patient has critical coronary artery disease and requires revascularization. This high risk abnormal stress test is explained angiographically. Multivessel revascularization is required 2. A large component of patient's coronary artery disease can be explained by renovascular hypertension and poorly controlled hypertension. I believe revascularizing the renal arteries will significantly improve blood pressure and hopefully quell or or slow the process of patient's critical ischemic heart disease 3. Statin therapy with goal LDL less than 70 4. Patient will be started on aspirin and Plavix today and will be scheduled for multivessel revascularization tomorrow at [facility] History of present illness: 82-year-old white male with history of coronary artery disease, COPD and diabetes mellitus presents the emergency department for increasing episodes of shortness of breath. Patient describes progressive episodes of exertional dyspnea over the last month. These symptoms are somewhat similar to his symptoms prior to his coronary stenting in 2016. Patient does have chronic shortness of breath and wears oxygen at home and has limited activity. Patient has noted some hemoptysis which he associates with his iron tablets. He states the hemoptysis resolves when he stops taking the iron tablets. He does have a history of a benign lung biopsy in the past. Admitted for further evaluation. Noted to have an elevated d-dimer but patient is on chronic anticoagulation therapy for history of atrial fibrillation. Patient is to undergo a V/Q scan today. Cardiology consulted for evaluation recommendations. [facility] History Medical History: Reports:: Atrial Fibrillation, Chronic Obstructive Pulmonary Disease (COPD), Coronary Artery Disease, Diabetes Mellitus Type 2, Gastroesophageal Reflux Disease(GERD), Home Oxygen, Hyperlipidemia, Hypertension , Internal Pacemaker, Renal Disease Denies:: Cancer, Diabetes Mellitus Type 1, MRSA, Seizures Other Medical History: Reports: Anemia, Arthritis, Blood Transfusion Reaction, Cataracts, Hypothyroidism Laterality Cases: Bilateral: Cataract Other Surgeries: Yes: CABG, Cardiac Catheterization, Coronary Stent, Hernia Repair, Pacemaker, Other Amputation: No Fractures: No - *Social History Educational Level: Attended High School Smoking Status: Former smoker Tobacco Type: cigarettes # Packs/Day (cigarettes): 1 #Yrs smoked (if former smoker): 30 Alcohol Intake: never Occupational Status: retired Housing: house Household Members: caregiver, none - Psychiatric History Expresses thoughts of harming self/others: None Suicide Plan Description: No Plan *Family Hx:: No significant family history Meds Home Medications Medication Instructions Recorded Confirmed Type Albuterol Sulfate [Proair 2 puffs IH QID 11/12/17 03/23/18 History Respiclick] Fludrocortisone Acetate [Florinef 0.1 mg PO HS 11/12/17 03/23/18 History 0.1mg tablet] Nitroglycerin 0.4 mg SL NEEDED PRN 11/12/17 03/22/18 History Pantoprazole Sodium [Protonix 40mg 40 mg PO HS 11/12/17 03/22/18 History tablet] Rivaroxaban [Xarelto] 20 mg PO HS 11/12/17 03/22/18 History Simvastatin [Zocor] 40 mg PO HS 11/12/17 03/22/18 History Tamsulosin HCl [Flomax] 0.4 mg PO HS 11/12/17 03/22/18 History Gabapentin [Gabapentin 100mg Cap] 100 mg PO HS 01/14/18 03/22/18 History Levothyroxine Sodium 50 mcg PO HS 01/14/18 03/22/18 History [Levothyroxine 50mcg (0.05mg) Tab] raNITIdine HCl [Zantac] 150 mg PO BID 01/14/18 03/23/18 History Amlodipine Besylate [Amlodipine 10 mg PO HS 01/15/18 03/22/18 History 10mg Tab] Ferrous Sulfate [Ferrous Sulfate 325 mg PO DAILY 01/15/18 03/22/18 History 325mg Tablet] Metformin HCl 1,000 mg PO BID 01/15/18 03/22/18 History Furosemide [Furosemide 20mg Tab] 20 mg PO QAM 03/22/18 03/22/18 History Ondansetron HCl [Ondansetron 4mg 4 mg PO Q8HP PRN 03/22/18 03/22/18 History Tab] Fluticasone/Vilanterol [Breo 1 puff IH DAILY 03/23/18 03/23/18 History Ellipta 100-25 Mcg INH] Allergies Allergy/AdvReac Type Severity Reaction Status Date / Time Penicillins Allergy Severe throat Verified 03/22/18 20:39 closure Review of Systems - *Cardiovascular Reports shortness of breath, Reports shortness of breath with activity - *Respiratory Reports shortness of breath with activity - *Gastrointestinal Denies abdominal pain - *Neurologic Denies abnormal walking, Denies abnormal hearing Exam Vital signs and Labs for Last 24 Hours: Temp Pulse Resp BP Pulse Ox 98.0 F 84 20 109/53 93 L 03/23/18 07:24 03/23/18 09:45 03/23/18 07:24 03/23/18 07:24 03/23/18 09:45 Laboratory Results - last 24 hr 03/22/18 17:09: WBC 10.1, RBC 4.62, Hgb 10.3 L, Hct 36.6 L, MCV 79.2 L, MCH 22.4 L, MCHC 28.3 L, RDW 15.4, Plt Count 302, MPV 7.4, Neut % (Auto) 78.6, Lymph % (Auto) 16.0, [place] % (Auto) 4.6, Eos % (Auto) 0.7, Baso % (Auto) 0.2, Neut # (Auto) 7.9 H, Lymph # (Auto) 1.6, [place] # (Auto) 0.5, Eos # (Auto) 0.1, Baso # (Auto) 0.0 03/22/18 17:09: Sodium 138, Potassium 4.0, Chloride 100, Carbon Dioxide 25, Anion Gap 17.0 H, BUN 31 H, Creatinine 1.41 H, Estimated Creat Clear 49, Estimated GFR 48 L, Est GFR ( Amer) 58 L, Glucose 149 H, Calcium 9.8, Total Bilirubin 1.4 H, AST 12 L, ALT 13, Alkaline Phosphatase 84, Troponin I < 0.02, Total Protein 7.6, Albumin 3.4, Globulin 4.2 H, Albumin/Globulin Ratio 0.8 L 03/22/18 17:09: B-Natriuretic Peptide 355 H 03/22/18 17:09: D-Dimer 1000 H* 03/23/18 06:26: Sodium 141, Potassium 4.4, Chloride 103, Carbon Dioxide 25, Anion Gap 17.4 H, BUN 34 H, Creatinine 1.45 H, Estimated Creat Clear 38, Estimated GFR 47 L, Est GFR ( Amer) 57 L, Glucose 246 H D I & O for Last 24 hours: Intake & Output 03/20/18 03/21/18 03/22/18 03/23/18 11:59 11:59 11:59 11:59 Output Total 150 / 150 Balance -150 / -150 Weight 146 lb 8 oz - *Routine Neck Exam Present: carotid bruit - *Routine Respiratory Exam Present: decreased breath sounds - *Routine Cardiovascular Exam Present: RRR, murmur - *Routine Extremities Exam Absent: edema - *Routine Neurological Exam Present: alert, oriented X3, moving all extremities Assessment and Plan (1) Hemoptysis Current visit: Yes Status: Acute Category: Medical Code(s): R04.2 - Hemoptysis (2) Dyspnea Current visit: Yes Status: Chronic Qualifiers: Category: Medical Code(s): R06.00 - Dyspnea, unspecified (3) Acute exacerbation of chronic obstructive airways disease Current visit: No Status: Acute Category: Medical Code(s): J44.1 - Chronic obstructive pulmonary disease with (acute) exacerbation (4) Atrial fibrillation Current visit: No Status: Chronic Qualifiers: Atrial fibrillation type: chronic Qualified Code(s): I48.2 - Chronic atrial fibrillation Category: Medical Code(s): I48.91 - Unspecified atrial fibrillation (5) Cardiac pacemaker in situ Problem details: Current visit: No Status: Chronic Category: Medical Code(s): Z95.0 - Presence of cardiac pacemaker (6) Chronic kidney disease, stage 2 (mild) Current visit: No Status: Chronic Category: Medical Code(s): N18.2 - Chronic kidney disease, stage 2 (mild) (7) Chronic obstructive lung disease Current visit: No Status: Chronic Qualifiers: COPD type: unspecified COPD Qualified Code(s): J44.9 - Chronic obstructive pulmonary disease, unspecified Category: Medical Code(s): J44.9 - Chronic obstructive pulmonary disease, unspecified (8) Coronary arteriosclerosis Current visit: No Status: Chronic Category: Medical Code(s): I25.10 - Atherosclerotic heart disease of [place] coronary artery without angina pectoris (9) Hyperlipidemia Current visit: No Status: Chronic Qualifiers: Hyperlipidemia type: other hyperlipidemia Qualified Code(s): E78.4 - Other hyperlipidemia Category: Medical Code(s): E78.5 - Hyperlipidemia, unspecified (10) Hypertensive disorder Current visit: No Status: Chronic Qualifiers: Hypertension type: essential hypertension Qualified Code(s): I10 - Essential (primary) hypertension Category: Medical Code(s): I10 - Essential (primary) hypertension - Assessment and plan all Dx Assessment and Plan for all problems:: 1. With known coronary artery disease with recent exertional shortness of breath reminiscent of his previous angina symptoms, would recommend proceeding with left heart catheterization to reevaluate coronary artery disease in this diabetic patient. 2. With his shortness of breath and known COPD, consideration for right heart catheterization will be given as well. 3. Since the patient is on Xarelto we will hold this today and plan to proceed with cardiac catheterization tomorrow. 4. Recent echo shows LVEF of 55% with moderate MR/TR. The echo was performed to rule out pacemaker induced cardiomyopathy.
[2018-03-24 07:13] LABS: Basophils % 0.1 % (0.1-2.0); Eosinophils % 0.2 % (0.1-12.0); Hematocrit 27.9 % (42.0-52.0); Hemoglobin 8.7 g/dL (14.1-18.0); Lymphocytes # 0.6 K/mm3 (0.7-4.5); Lymphocytes % 10.4 K/mm3 (10-50); Mean Corpuscular HGB Conc 31.1 g/dL (31.8-35.4); Mean Corpuscular Hemoglobin 24.5 pg (27.0-31.2); Mean Corpuscular Volume 78.6 fl (80-94); Mean Platelet Volume 8.1 fl (7.4-10.4); Monocytes # 0.2 K/mm3 (0.1-1.0); Monocytes % 2.9 % (1.7-9.3); Neutrophils # 5.3 K/mm3 (1.8-7.8); Neutrophils % 86.4 % (37.0-80.0); Platelet Count 258 K/mm3 (142-424); Red Blood Count 3.55 M/mm3 (4.60-6.20); Red Cell Distribution Width 15.2 % (11.5-17.5); White Blood Count 6.2 K/mm3 (4.8-10.8)
[2018-03-24 08:06] LABS: Albumin Level 3.1 gm/dL (3.4-5.0); Albumin/Globulin Ratio 0.8 (1.1-1.8); Anion Gap 15.7 mEq/L (5-15); Bilirubin,Total 0.7 mg/dL (0.2-1.0); Calcium 9.5 mg/dL (8.5-10.1); Globulin 3.9 gm/dl (1.3-3.2); Potassium 3.7 mmoL/L (3.5-5.1)
--- NOTE | 2018-03-24 08:40 | Progress Note ---
Internal Medicine - PN: Subj *Date: 03/24/18 *Time: 07:45 Interval history: Patient reports shortness of breath is improved. ALert and oriented x3. Rate and rhythm regular. No LE edema. Lung sounds diminished throughout. Abdomen soft and nontender Exam Vital signs and Labs for Last 24 Hours: Temp Pulse Resp BP Pulse Ox 98.4 F 80 20 112/55 98 03/24/18 04:00 03/24/18 06:06 03/24/18 04:00 03/24/18 04:00 03/24/18 06:06 Laboratory Results - last 24 hr 03/24/18 06:30: WBC 6.2 D, RBC 3.55 L, Hgb 8.7 L, Hct 27.9 L, MCV 78.6 L, MCH 24.5 L, MCHC 31.1 L, RDW 15.2, Plt Count 258, MPV 8.1, Neut % (Auto) 86.4 H, Lymph % (Auto) 10.4, [place] % (Auto) 2.9, Eos % (Auto) 0.2, Baso % (Auto) 0.1, Neut # (Auto) 5.3, Lymph # (Auto) 0.6 L, [place] # (Auto) 0.2, Eos # (Auto) 0.0, Baso # (Auto) 0.0 03/24/18 06:30: Sodium 140, Potassium 3.7, Chloride 102, Carbon Dioxide 26, Anion Gap 15.7 H, BUN 42 H, Creatinine 1.61 H, Estimated Creat Clear 35, Estimated GFR 41 L, Est GFR ( Amer) 50 L, Glucose 230 H, Calcium 9.5, Total Bilirubin 0.7, AST 10 L, ALT 14, Alkaline Phosphatase 79, Total Protein 7.0, Albumin 3.1 L, Globulin 3.9 H, Albumin/Globulin Ratio 0.8 L I & O for Last 24 hours: Intake & Output 03/21/18 03/22/18 03/23/18 03/24/18 11:59 11:59 11:59 11:59 Intake Total 1320 / 1320 Output Total 150 / 150 500 / 500 Balance -150 / -150 820 / 820 Weight 146 lb 8 oz 149 lb 7 oz Assessment and Plan (1) Hemoptysis Current visit: Yes Status: Acute Category: Medical Code(s): R04.2 - Hemoptysis (2) Dyspnea Current visit: Yes Status: Chronic Qualifiers: Category: Medical Code(s): R06.00 - Dyspnea, unspecified (3) Acute exacerbation of chronic obstructive airways disease Current visit: No Status: Acute Category: Medical Code(s): J44.1 - Chronic obstructive pulmonary disease with (acute) exacerbation (4) Atrial fibrillation Current visit: No Status: Chronic Qualifiers: Atrial fibrillation type: chronic Qualified Code(s): I48.2 - Chronic atrial fibrillation Category: Medical Code(s): I48.91 - Unspecified atrial fibrillation (5) Cardiac pacemaker in situ Problem details: Current visit: No Status: Chronic Category: Medical Code(s): Z95.0 - Presence of cardiac pacemaker (6) Chronic kidney disease, stage 2 (mild) Current visit: No Status: Chronic Category: Medical Code(s): N18.2 - Chronic kidney disease, stage 2 (mild) (7) Chronic obstructive lung disease Current visit: No Status: Chronic Qualifiers: COPD type: unspecified COPD Qualified Code(s): J44.9 - Chronic obstructive pulmonary disease, unspecified Category: Medical Code(s): J44.9 - Chronic obstructive pulmonary disease, unspecified (8) Coronary arteriosclerosis Current visit: No Status: Chronic Category: Medical Code(s): I25.10 - Atherosclerotic heart disease of [place] coronary artery without angina pectoris (9) Hyperlipidemia Current visit: No Status: Chronic Qualifiers: Hyperlipidemia type: other hyperlipidemia Qualified Code(s): E78.4 - Other hyperlipidemia Category: Medical Code(s): E78.5 - Hyperlipidemia, unspecified (10) Hypertensive disorder Current visit: No Status: Chronic Qualifiers: Hypertension type: essential hypertension Qualified Code(s): I10 - Essential (primary) hypertension Category: Medical Code(s): I10 - Essential (primary) hypertension - Assessment and plan all Dx Assessment and Plan for all problems:: NPO for right and left heart cath later today
[2018-03-24 11:33] LABS: Lymphocytes % 17 % (10-50); Monocytes % 1 % (2-9); Neutrophils % 81 % (42-76); Total Cells Counted 100
[2018-03-24 11:37] LABS: Anisocytosis 1+; Hypochromasia 1+; Ovalocytes 1+; Rouleaux 1+
--- NOTE | 2018-03-24 15:49 | Progress Note ---
Subjective Date: 03/24/18 Time: 15:46 Principal diagnosis: SOA Interval history: Cardiac cath today revealed no significant obstruction and no need for coronary stenting. No evidence of pulmonary embolism. Recommend resuming home meds, including Xarelto, and adding aspirin 81 mg daily. OK for discharge home from cardiology standpoint. Follow up in our office in 1-2 wks. Exam Vital signs and Labs for Last 24 Hours: Temp Pulse Resp BP Pulse Ox 98.1 F 80 16 120/51 96 03/24/18 11:37 03/24/18 15:00 03/24/18 15:00 03/24/18 15:00 03/24/18 15:00 Laboratory Results - last 24 hr 03/24/18 06:30: WBC 6.2 D, RBC 3.55 L, Hgb 8.7 L, Hct 27.9 L, MCV 78.6 L, MCH 24.5 L, MCHC 31.1 L, RDW 15.2, Plt Count 258, MPV 8.1, Neut % (Auto) 86.4 H, Lymph % (Auto) 10.4, [place] % (Auto) 2.9, Eos % (Auto) 0.2, Baso % (Auto) 0.1, Neut # (Auto) 5.3, Lymph # (Auto) 0.6 L, [place] # (Auto) 0.2, Eos # (Auto) 0.0, Baso # (Auto) 0.0, Total Counted 100, Neutrophils % (Manual) 81 H, Band Neutrophils % 1.0, Lymphocytes % (Manual) 17, Monocytes % (Manual) 1 L, Platelet Estimate Normal, Hypochromasia 1+, Anisocytosis 1+, Microcytosis 1+, Ovalocytes 1+, Rouleaux 1+ 03/24/18 06:30: Sodium 140, Potassium 3.7, Chloride 102, Carbon Dioxide 26, Anion Gap 15.7 H, BUN 42 H, Creatinine 1.61 H, Estimated Creat Clear 35, Estimated GFR 41 L, Est GFR ( Amer) 50 L, Glucose 230 H, Calcium 9.5, Total Bilirubin 0.7, AST 10 L, ALT 14, Alkaline Phosphatase 79, Total Protein 7.0, Albumin 3.1 L, Globulin 3.9 H, Albumin/Globulin Ratio 0.8 L I & O for Last 24 hours: Intake & Output 03/22/18 03/23/18 03/24/18 03/25/18 11:59 11:59 11:59 11:59 Intake Total 1320 / 1320 Output Total 150 / 150 500 / 500 Balance -150 / -150 820 / 820 Weight 146 lb 8 oz 149 lb 7 oz - *Routine Respiratory Exam Present: decreased breath sounds - *Routine Cardiovascular Exam Present: irregularly irregular Progress Note: A&P (1) Hemoptysis Status: Acute Current Visit: Yes (2) Dyspnea Status: Chronic Current Visit: Yes (3) Acute exacerbation of chronic obstructive airways disease Status: Acute Current Visit: No (4) Atrial fibrillation Status: Chronic Current Visit: No (5) Cardiac pacemaker in situ Problem details: Status: Chronic Current Visit: No (6) Chronic kidney disease, stage 2 (mild) Status: Chronic Current Visit: No (7) Chronic obstructive lung disease Status: Chronic Current Visit: No (8) Coronary arteriosclerosis Status: Chronic Current Visit: No (9) Hyperlipidemia Status: Chronic Current Visit: No (10) Hypertensive disorder Status: Chronic Current Visit: No Assessment and Plan for All Diagnoses:: See above.
[2018-03-25 06:40] LABS: Eosinophils % 0.4 % (0.1-12.0); Hematocrit 28.5 % (42.0-52.0); Hemoglobin 8.4 g/dL (14.1-18.0); Lymphocytes # 0.5 K/mm3 (0.7-4.5); Lymphocytes % 10.3 K/mm3 (10-50); Mean Corpuscular HGB Conc 29.6 g/dL (31.8-35.4); Mean Corpuscular Hemoglobin 23.8 pg (27.0-31.2); Mean Corpuscular Volume 80.3 fl (80-94); Mean Platelet Volume 7.9 fl (7.4-10.4); Monocytes # 0.1 K/mm3 (0.1-1.0); Monocytes % 2.7 % (1.7-9.3); Neutrophils # 4.3 K/mm3 (1.8-7.8); Neutrophils % 86.6 % (37.0-80.0); Platelet Count 268 K/mm3 (142-424); Red Blood Count 3.55 M/mm3 (4.60-6.20); Red Cell Distribution Width 15.1 % (11.5-17.5)
[2018-03-25 07:07] LABS: Albumin Level 2.7 gm/dL (3.4-5.0); Albumin/Globulin Ratio 0.8 (1.1-1.8); Bilirubin,Total 0.6 mg/dL (0.2-1.0); Calcium 8.8 mg/dL (8.5-10.1); Globulin 3.5 gm/dl (1.3-3.2); Total Protein,Serum 6.2 gm/dL (6.4-8.2)
--- NOTE | 2018-03-25 07:27 | Discharge Summary ---
General - General Admission date:: 03/22/18 Discharge date: 03/25/18 HPI HPI: 82-year-old white male with long history of end-stage COPD, recurrent pulmonary embolism and cardiac disease, who came to the emergency department because of dyspnea and some hemoptysis. He actually was in no distress, d-dimer was 1000, and patient has been on Xarelto daily on an ongoing basis. The decision was made to admit without pursuing CT scan in the emergency department because of his elevated creatinine. Cardiology consultation is pending, and this morning patient notes that he feels better. He thinks that his hemoptysis occurs after he takes iron replacment therapy for 3 or 4 days in a row and if he stops this this improves. Hospital Course Hospital Course: Patient was admitted, ruled out for ME by enzyme and EKG criteria. He improved with antibiotics and pulmonary toilet. VQ scan was done because of his high d-dimer which revealed moderate probability of PE. He was taken to the [facility] yesterday and right and left heart cath were done which showed previously noted coronary disease but nothing amenable to stenting and no evidence of new lesions as well as no evidence of pulmonary embolism by angiogram. This morning the patient continued to feel better. Plan will be to discharge home today. He will receive antibiotics and low-dose prednisone for his COPD exacerbation. I will see him in 1 week and he will be scheduled for cardiology appointment as noted. Objective Vital signs: Temp Pulse Resp BP Pulse Ox 98.6 F 80 18 114/58 97 03/25/18 04:00 03/25/18 06:30 03/25/18 04:00 03/25/18 04:00 03/25/18 06:30 Narrative: Is pleasant, alert on his regular oxygen. Eating breakfast well. Heart rate regular without murmurs. Lungs have rhonchi in all [place] but much better than admission, no wheezing, no crackles. Abdomen is soft, positive bowel sounds. No edema in his extremities. Results Labs on day of discharge: Labs from last 24 hours 03/25/18 03/24/18 03/24/18 06:09 06:30 06:30 WBC 5.0 RBC 3.55 L Hgb 8.4 L Hct 28.5 L MCV 80.3 MCH 23.8 L MCHC 29.6 L RDW 15.1 Plt Count 268 MPV 7.9 Neut % (Auto) 86.6 H Lymph % (Auto) 10.3 [place] % (Auto) 2.7 Eos % (Auto) 0.4 Baso % (Auto) 0.0 L Neut # (Auto) 4.3 Lymph # (Auto) 0.5 L [place] # (Auto) 0.1 Eos # (Auto) 0.0 Baso # (Auto) 0.0 Total Counted 100 Neutrophils % (Manual) 81 H Band Neutrophils % 1.0 Lymphocytes % (Manual) 17 Monocytes % (Manual) 1 L Platelet Estimate Normal Hypochromasia 1+ Anisocytosis 1+ Microcytosis 1+ Ovalocytes 1+ Rouleaux 1+ Sodium 140 Potassium 3.7 Chloride 102 Carbon Dioxide 26 Anion Gap 15.7 H BUN 42 H Creatinine 1.61 H Estimated Creat Clear 35 Estimated GFR 41 L Est GFR ( Amer) 50 L Glucose 230 H Calcium 9.5 Total Bilirubin 0.7 AST 10 L ALT 14 Alkaline Phosphatase 79 Total Protein 7.0 Albumin 3.1 L Globulin 3.9 H Albumin/Globulin Ratio 0.8 L DS: Diagnosis - Discharge Diagnosis (1) Hemoptysis Status: Resolved (2) Dyspnea Status: Chronic (3) Acute exacerbation of chronic obstructive airways disease Status: Acute (4) Atrial fibrillation Status: Chronic (5) Cardiac pacemaker in situ Status: Chronic Problem details: (6) Chronic kidney disease, stage 2 (mild) Status: Chronic (7) Chronic obstructive lung disease Status: Chronic (8) Coronary arteriosclerosis Status: Chronic (9) Hyperlipidemia Status: Chronic (10) Hypertensive disorder Status: Chronic Discharge Plan - Patient Discharge Instructions ACTIVITY: Continue current activity DIET: continue same diet - Follow up Plan Follow up with: Haseeb Carter MD [Primary Care Provider] - 1 week Disposition: Home, Self-[facility] Medications: Home Medications Medication Instructions Recorded Confirmed Type Albuterol Sulfate [Proair 2 puffs IH QID 11/12/17 03/23/18 History Respiclick] Fludrocortisone Acetate [Florinef 0.1 mg PO HS 11/12/17 03/23/18 History 0.1mg tablet] Nitroglycerin 0.4 mg SL NEEDED PRN 11/12/17 03/22/18 History Pantoprazole Sodium [Protonix 40mg 40 mg PO HS 11/12/17 03/22/18 History tablet] Rivaroxaban [Xarelto] 20 mg PO HS 11/12/17 03/22/18 History Simvastatin [Zocor] 40 mg PO HS 11/12/17 03/22/18 History Tamsulosin HCl [Flomax] 0.4 mg PO HS 11/12/17 03/22/18 History Gabapentin [Gabapentin 100mg Cap] 100 mg PO HS 01/14/18 03/22/18 History Levothyroxine Sodium 50 mcg PO HS 01/14/18 03/22/18 History [Levothyroxine 50mcg (0.05mg) Tab] raNITIdine HCl [Zantac] 150 mg PO BID 01/14/18 03/23/18 History Amlodipine Besylate [Amlodipine 10 mg PO HS 01/15/18 03/22/18 History 10mg Tab] Ferrous Sulfate [Ferrous Sulfate 325 mg PO DAILY 01/15/18 03/22/18 History 325mg Tablet] Metformin HCl 1,000 mg PO BID 01/15/18 03/22/18 History Furosemide [Furosemide 20mg Tab] 20 mg PO QAM 03/22/18 03/22/18 History Ondansetron HCl [Ondansetron 4mg 4 mg PO Q8HP PRN 03/22/18 03/22/18 History Tab] Fluticasone/Vilanterol [Breo 1 puff IH DAILY 03/23/18 03/23/18 History Ellipta 100-25 Mcg INH] Prescriptions/Medication Reconciliation: New predniSONE [Deltasone 20mg tablet] 20 mg PO BID 7 Days #14 tab Azithromycin [Zithromax 250mg tab] 250 mg PO DIRECTED #6 tab Continue Pantoprazole Sodium [Protonix 40mg tablet] 40 mg PO HS Tamsulosin HCl [Flomax] 0.4 mg PO HS Simvastatin [Zocor] 40 mg PO HS Rivaroxaban [Xarelto] 20 mg PO HS Nitroglycerin 0.4 mg SL NEEDED PRN PRN Reason: Chest Pain Fludrocortisone Acetate [Florinef 0.1mg tablet] 0.1 mg PO HS Albuterol Sulfate [Proair Respiclick] 2 puffs IH QID Gabapentin [Gabapentin 100mg Cap] 100 mg PO HS raNITIdine HCl [Zantac] 150 mg PO BID Levothyroxine Sodium [Levothyroxine 50mcg (0.05mg) Tab] 50 mcg PO HS Metformin HCl 1,000 mg PO BID Ferrous Sulfate [Ferrous Sulfate 325mg Tablet] 325 mg PO DAILY Nebulizer and Compressor [Portable Nebulizer System] 1 each MC Q4H PRN 30 Days #1 each PRN Reason: Shortness Of Breath Furosemide [Furosemide 20mg Tab] 20 mg PO QAM Fluticasone/Vilanterol [Breo Ellipta 100-25 Mcg INH] 1 puff IH DAILY Amlodipine Besylate [Amlodipine 10mg Tab] 10 mg PO HS Ipratropium/Albuterol Sulfate [Duoneb 3mL neb] 3 ml IH Q4HP PRN 30 Days #120 ampul.neb PRN Reason: Shortness Of Breath Ondansetron HCl [Ondansetron 4mg Tab] 4 mg PO Q8HP PRN PRN Reason: Nausea
[2018-03-25 07:51] VITALS: BP 116/49
[2018-03-25 10:07] LABS: Lymphocytes % 11 % (10-50); Neutrophils % 89 % (42-76); Total Cells Counted 100
[2018-03-25 10:08] LABS: Hypochromasia 1+
== END 2018-03-25 09:20 | disposition home or self-care (01) ==
LOC: ER 16:55 → 2ND 16:55
PROVIDERS: ADMIT Emergency Medicine; ATTEND Internal Medicine Adolescent Medicine

== ENCOUNTER → 2018-05-23 17:22 | Outpatient (CLI) | payer MEDICARE, MEDICAID, SELFPAY ==
--- NOTE | 2018-05-23 17:32 | XR_ITS ---
XR chest 2V HISTORY: Shortness of breath ITS.REASON: COPD WITH EXACERBATION ORDERING PHYSICIAN: Haseeb Carter MD PATIENT AGE: 82 years COMPARISON: PA and lateral chest 03/23/2018 FINDINGS: When compared to the previous study there has been was complete clearing of the ill-defined pneumonic infiltrate in right perihilar region and right lower lobe. There is chronic pleural scarring at the right lung base and/or loculated pleural fluid or combination of the 2. There is partial silhouetting of the left heart border likely due to scarring in the lingula. There is blunting of left costo phrenic angle. Likely due to chronic scarring. There is mild generalized cardio megaly and there are sternal wire sutures and surgical clips from previous CABG. Is a cardiac pacemaker and dual chamber electrodes in good position. Is no obvious pulmonary congestion. IMPRESSION: Stable mild generalized cardio megaly, interval partial clearing of the diffuse ill-defined pneumonic infiltrate in the right perihilar region and right lower lobe, probable pleural scarring at both costophrenic angles though cannot rule out loculated pleural fluid at the right base
[2018-05-23 17:55] LABS: Basophils % 0.5 % (0.1-2.0); Eosinophils # 0.1 K/mm3 (0.0-0.4); Eosinophils % 1.7 % (0.1-12.0); Hematocrit 26.9 % (42.0-52.0); Lymphocytes # 1.2 K/mm3 (0.7-4.5); Lymphocytes % 22.2 K/mm3 (10-50); Mean Corpuscular HGB Conc 29.4 g/dL (31.8-35.4); Mean Corpuscular Volume 74.7 fl (80-94); Mean Platelet Volume 7.4 fl (7.4-10.4); Monocytes # 0.3 K/mm3 (0.1-1.0); Monocytes % 5.2 % (1.7-9.3); Neutrophils # 3.9 K/mm3 (1.8-7.8); Neutrophils % 70.2 % (37.0-80.0); Platelet Count 374 K/mm3 (142-424); White Blood Count 5.5 K/mm3 (4.8-10.8)
[2018-05-23 18:03] LABS: Hemoglobin 7.9 g/dL (14.1-18.0)
[2018-05-23 21:36] LABS: Alanine Aminotransferase 12 U/L (12-78); Albumin Level 2.9 gm/dL (3.4-5.0); Albumin/Globulin Ratio 0.8 (1.1-1.8); Alkaline Phosphatase 78 U/L (46-116); Anion Gap 15.3 mEq/L (5-15); Aspartate Amino Transferase 9 U/L (15-37); Bilirubin,Total 0.6 mg/dL (0.2-1.0); Blood Urea Nitrogen 19 mg/dL (7-18); Calcium 8.2 mg/dL (8.5-10.1); Carbon Dioxide 30 mmol/L (21.0-32.0); Chloride 110 mmol/L (98-107); Creatinine,Serum 1.13 mg/dL (0.70-1.30); Estimated Glomerular Filt Rate 62 ml/min (>60); GFR (African American) 75 ML/MIN (>60); Globulin 3.6 gm/dl (1.3-3.2); Glucose 167 mg/dL (74-106); Potassium 3.3 mmoL/L (3.5-5.1); Total Protein,Serum 6.5 gm/dL (6.4-8.2)
[2018-05-23 22:01] LABS: Sodium 152 mmol/L (136-145)
== END ==
PROVIDERS: Visit Provider Internal Medicine Adolescent Medicine
DX: J44.1 Chronic obstructive pulmonary disease with (acute) exacerbation (principal)
CPT/HCPCS: 36415; 71046; 80053; 85025

== ENCOUNTER 2018-05-24 09:12 | Inpatient (IN) ==
[2018-05-24 10:14] LABS: Basophils % 0.5 % (0.1-2.0); Eosinophils # 0.1 K/mm3 (0.0-0.4); Eosinophils % 0.9 % (0.1-12.0); Hematocrit 24.6 % (42.0-52.0); Lymphocytes # 1.2 K/mm3 (0.7-4.5); Lymphocytes % 20.4 K/mm3 (10-50); Mean Corpuscular HGB Conc 29.5 g/dL (31.8-35.4); Mean Corpuscular Volume 74.4 fl (80-94); Mean Platelet Volume 7.7 fl (7.4-10.4); Monocytes # 0.3 K/mm3 (0.1-1.0); Monocytes % 4.5 % (1.7-9.3); Neutrophils # 4.2 K/mm3 (1.8-7.8); Neutrophils % 73.7 % (37.0-80.0); Platelet Count 347 K/mm3 (142-424); Red Blood Count 3.31 M/mm3 (4.60-6.20); Red Cell Distribution Width 16.1 % (11.5-17.5); White Blood Count 5.7 K/mm3 (4.8-10.8)
[2018-05-24 10:29] LABS: Anion Gap 14.8 mEq/L (5-15); Hemoglobin 7.3 g/dL (14.1-18.0)
[2018-05-24 10:33] LABS: Potassium 2.8 mmoL/L (3.5-5.1)
--- NOTE | 2018-05-24 14:22 | History & Physical Report ---
*Admission Date: 05/24/18 *Chief complaint: Worsening fatigue and dyspnea *History of present illness: Mr. Blackwell is an 82-year-old male who presented several weeks of worsening shortness of breath with exertion, hemoptysis, decreased p.o. intake, and dizziness. He initially presented to clinic yesterday for these complaints where labs were obtained. Found to have anemia hemoglobin 7.4, hypernatremia 152, and hypokalemia. Patient contacted and instructed to come to the hospital for repeat additionally he reports having falls several times over the past few weeks. Is dyspneic with exertion having to stop several times on his way to his car this morning from his front door. He reports "sitting up makes me short of breath". Was recently admitted and may for pacemaker interrogation. 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 Denies nausea, vomiting, diarrhea. Complains of intermittent "darker" stools over the past several weeks. No reported weight loss, hemoptysis, headaches. [facility] History Medical History: Reports:: Atrial Fibrillation, Chronic Obstructive Pulmonary Disease (COPD), Coronary Artery Disease, Diabetes Mellitus Type 2, Gastroesophageal Reflux Disease(GERD), Home Oxygen, Hyperlipidemia, Hypertension , Internal Pacemaker, Renal Disease Denies:: Cancer, Diabetes Mellitus Type 1, MRSA, Seizures Other Medical History: Reports: Anemia, Arthritis, Blood Transfusion Reaction, Cataracts, Hypothyroidism Other Surgeries: Yes: CABG, Cardiac Catheterization, Coronary Stent, Hernia Repair, Pacemaker, Other Amputation: No Fractures: No - *Social History Educational Level: Attended High School Smoking Status: Former smoker Tobacco Type: cigarettes # Packs/Day (cigarettes): 1 #Yrs smoked (if former smoker): 30 Alcohol Intake: never Occupational Status: retired Housing: house Household Members: caregiver, none - Psychiatric History Expresses thoughts of harming self/others: None Suicide Plan Description: No Plan *Family Hx:: No significant family history Review of Systems - Review of Systems Review of systems:: pertinent systems reviewed and negative unless documented below Meds Home Medications Medication Instructions Recorded Confirmed Type Albuterol Sulfate [Proair 2 puffs IH QID 11/12/17 03/23/18 History Respiclick] Fludrocortisone Acetate [Florinef 0.1 mg PO HS 11/12/17 03/23/18 History 0.1mg tablet] Nitroglycerin 0.4 mg SL NEEDED PRN 11/12/17 03/22/18 History Pantoprazole Sodium [Protonix 40mg 40 mg PO HS 11/12/17 03/22/18 History tablet] Rivaroxaban [Xarelto] 20 mg PO HS 11/12/17 03/22/18 History Simvastatin [Zocor] 40 mg PO HS 11/12/17 03/22/18 History Tamsulosin HCl [Flomax] 0.4 mg PO HS 11/12/17 03/22/18 History Gabapentin [Gabapentin 100mg Cap] 100 - 200 mg PO TID 01/14/18 03/22/18 History Levothyroxine Sodium 50 mcg PO DAILY 01/14/18 03/22/18 History [Levothyroxine 50mcg (0.05mg) Tab] raNITIdine HCl [Zantac] 150 mg PO BID 01/14/18 03/23/18 History Amlodipine Besylate [Amlodipine 10 mg PO HS 01/15/18 03/22/18 History 10mg Tab] Ferrous Sulfate [Ferrous Sulfate 325 mg PO DAILY 01/15/18 03/22/18 History 325mg Tablet] Metformin HCl 1,000 mg PO BID 01/15/18 03/22/18 History Furosemide [Furosemide 20mg Tab] 20 mg PO QAM 03/22/18 03/22/18 History Ondansetron HCl [Ondansetron 4mg 4 mg PO Q8HP PRN 03/22/18 03/22/18 History Tab] Fluticasone/Vilanterol [Breo 1 puff IH DAILY 03/23/18 03/23/18 History Ellipta 100-25 Mcg INH] Potassium 99 mg PO DAILY 05/24/18 05/24/18 History Allergies Allergy/AdvReac Type Severity Reaction Status Date / Time Penicillins Allergy Severe throat Verified 03/22/18 20:39 closure Exam Vital signs and Labs for Last 24 Hours: Temp Pulse Resp BP Pulse Ox 98.0 F 80 22 123/60 93 L 05/24/18 09:38 05/24/18 09:38 05/24/18 09:38 05/24/18 09:38 05/24/18 09:38 Laboratory Results - last 24 hr 05/24/18 10:03: WBC 5.7, RBC 3.31 L, Hgb 7.3 L*, Hct 24.6 L, MCV 74.4 L, MCH 22.0 L, MCHC 29.5 L, RDW 16.1, Plt Count 347, MPV 7.7, Neut % (Auto) 73.7, Lymph % (Auto) 20.4, [place] % (Auto) 4.5, Eos % (Auto) 0.9, Baso % (Auto) 0.5, Neut # (Auto) 4.2, Lymph # (Auto) 1.2, [place] # (Auto) 0.3, Eos # (Auto) 0.1, Baso # (Auto) 0.0 05/24/18 10:03: Sodium 150 H, Potassium 2.8 L*, Chloride 108 H, Carbon Dioxide 30, Anion Gap 14.8, BUN 18, Creatinine 1.20, Estimated Creat Clear 47, Estimated GFR 58 L, Est GFR ( Amer) 70, Glucose 163 H, Calcium 8.0 L, Phosphorus 3.0, Magnesium 1.3 L I & O for Last 24 hours: Intake & Output 05/22/18 05/23/18 05/24/18 05/25/18 11:59 11:59 11:59 11:59 Weight 151 lb 6 oz - *Routine HEENT Exam Head: Present: normocephalic, atraumatic Eye: Present: EOMI, PERRL ENT: Present: mucous membranes moist, nares patent - *Routine Neck Exam Present: supple, full ROM. Absent: JVD, lymphadenopathy - *Routine Respiratory Exam Present: patient mechanically ventilated, CTA bilaterally, prolonged expiratory phase - *Routine Cardiovascular Exam Present: RRR, Normal S1, Normal S2, murmur (Faint systolic murmur) - *Routine Abdominal Exam Present: soft, normoactive bowel sounds. Absent: tenderness, distended - *Routine Rectal Exam Patient deferred: visual exam - *Routine Exam Patient deferred: penile exam - *Routine Extremities Exam Present: pulses intact Comments: Then, no clubbing - *Routine Skin Exam Present: dry, pallor Comments: Numerous ecchymoses on arms - *Routine Neurological Exam Present: alert, oriented X3, CN II-XII intact, normal reflexes H&P: Result - Labs Labs: Short CBC 05/24/18 Range/Units 10:03 WBC 5.7 (4.8-10.8) K/mm3 Hgb 7.3 L* (14.1-18.0) g/dL Hct 24.6 L (42.0-52.0) % Plt Count 347 (142-424) K/mm3 [facility] 05/24/18 10:03 Sodium 150 H Potassium 2.8 L* Chloride 108 H Carbon Dioxide 30 BUN 18 Creatinine 1.20 Glucose 163 H Calcium 8.0 L Assessment and Plan (1) Iron deficiency anemia Current visit: Yes Status: Acute Category: Medical Code(s): D50.9 - Iron deficiency anemia, unspecified -Unclear etiology, previous outpatient workup inconclusive - Previous iron studies low, patient on ferrous sulfate at home -Hold iron supplementation and hospital -Type and cross this evening, transfuse for goal greater than 9 (2) Dizziness Current visit: No Status: Acute Category: Medical Code(s): R42 - Dizziness and giddiness (3) Fatigue Current visit: No Status: Acute Qualifiers: Category: Medical Code(s): R53.83 - Other fatigue (4) Hemoptysis Current visit: No Status: Acute Category: Medical Code(s): R04.2 - Hemoptysis (5) Cardiac pacemaker in situ Problem details: Current visit: No Status: Chronic Category: Medical Code(s): Z95.0 - Presence of cardiac pacemaker (6) Chronic kidney disease, stage 2 (mild) Current visit: No Status: Chronic Category: Medical Code(s): N18.2 - Chronic kidney disease, stage 2 (mild) Stable -Monitor with fluid resuscitation -Avoid nephrotoxic agents (7) Hypernatremia Current visit: Yes Status: Acute Category: Medical Code(s): E87.0 - Hyperosmolality and hypernatremia Home meds includes fludrocortisone -In setting of poor free water intake and mineralocorticoid use, suspect secondary to home regimen and dehydration -Hold fludrocortisone during admission -Resuscitate with 1 L LR -Repeat labs this evening (8) Hypokalemia Current visit: Yes Status: Acute Category: Medical Code(s): E87.6 - Hypokalemia - Assessment and plan all Dx Assessment and Plan for all problems:: Mr. Blackwell is an 82-year-old male with progressive fatigue, dizziness, and falls. Concern for symptomatic anemia with electrolyte disturbances due to moderate dehydration. -Admit to MedSurg for rehydration and electrolyte replacement -Repeat CBC pending this evening, transfuse with goal greater than 9 -PT OT consult, appreciate recommendations -Anticipate patient will need skilled placement due to debility, recommendations pending
[2018-05-24 19:24] LABS: Basophils % 0.6 % (0.1-2.0); Eosinophils # 0.1 K/mm3 (0.0-0.4); Eosinophils % 0.9 % (0.1-12.0); Hematocrit 24.4 % (42.0-52.0); Lymphocytes # 1.3 K/mm3 (0.7-4.5); Lymphocytes % 22.1 K/mm3 (10-50); Mean Corpuscular Hemoglobin 22.4 pg (27.0-31.2); Mean Corpuscular Volume 74.7 fl (80-94); Mean Platelet Volume 8.9 fl (7.4-10.4); Monocytes # 0.3 K/mm3 (0.1-1.0); Monocytes % 4.7 % (1.7-9.3); Neutrophils # 4.3 K/mm3 (1.8-7.8); Neutrophils % 71.6 % (37.0-80.0); Platelet Count 304 K/mm3 (142-424); Red Blood Count 3.26 M/mm3 (4.60-6.20); Red Cell Distribution Width 16.1 % (11.5-17.5)
[2018-05-24 19:30] LABS: Hemoglobin 7.3 g/dL (14.1-18.0)
[2018-05-24 19:36] LABS: Anion Gap 10.2 mEq/L (5-15); Calcium 8.1 mg/dL (8.5-10.1); Potassium 3.2 mmoL/L (3.5-5.1)
[2018-05-25 02:41] LABS: Hematocrit 26.6 % (42.0-52.0)
[2018-05-25 02:45] LABS: Hemoglobin 8.1 g/dL (14.1-18.0)
[2018-05-25 05:44] LABS: Basophils % 0.3 % (0.1-2.0); Eosinophils % 0.3 % (0.1-12.0); Hemoglobin 8.8 g/dL (14.1-18.0); Lymphocytes % 16.1 K/mm3 (10-50); Mean Corpuscular HGB Conc 30.4 g/dL (31.8-35.4); Mean Corpuscular Hemoglobin 22.2 pg (27.0-31.2); Mean Corpuscular Volume 72.9 fl (80-94); Mean Platelet Volume 7.7 fl (7.4-10.4); Monocytes # 0.3 K/mm3 (0.1-1.0); Monocytes % 4.7 % (1.7-9.3); Neutrophils # 5.1 K/mm3 (1.8-7.8); Neutrophils % 78.6 % (37.0-80.0); Platelet Count 346 K/mm3 (142-424); Red Blood Count 3.98 M/mm3 (4.60-6.20); Red Cell Distribution Width 16.2 % (11.5-17.5); White Blood Count 6.4 K/mm3 (4.8-10.8)
[2018-05-25 05:51] LABS: Anion Gap 11.2 mEq/L (5-15); Calcium 8.5 mg/dL (8.5-10.1); Potassium 3.2 mmoL/L (3.5-5.1)
--- NOTE | 2018-05-25 08:48 | Progress Note ---
Internal Medicine - PN: Subj *Date: 05/25/18 *Time: 08:46 Interval history: Patient had some dyspnea overnight. Now feels comfortable. Wearing facemask. Exam Vital signs and Labs for Last 24 Hours: Temp Pulse Resp BP Pulse Ox 98.5 F 80 16 136/73 93 L 05/25/18 08:00 05/25/18 08:00 05/25/18 08:00 05/25/18 08:00 05/25/18 08:00 Laboratory Results - last 24 hr 05/24/18 10:03: WBC 5.7, RBC 3.31 L, Hgb 7.3 L*, Hct 24.6 L, MCV 74.4 L, MCH 22.0 L, MCHC 29.5 L, RDW 16.1, Plt Count 347, MPV 7.7, Neut % (Auto) 73.7, Lymph % (Auto) 20.4, [place] % (Auto) 4.5, Eos % (Auto) 0.9, Baso % (Auto) 0.5, Neut # (Auto) 4.2, Lymph # (Auto) 1.2, [place] # (Auto) 0.3, Eos # (Auto) 0.1, Baso # (Auto) 0.0 05/24/18 10:03: Sodium 150 H, Potassium 2.8 L*, Chloride 108 H, Carbon Dioxide 30, Anion Gap 14.8, BUN 18, Creatinine 1.20, Estimated Creat Clear 47, Estimated GFR 58 L, Est GFR ( Amer) 70, Glucose 163 H, Calcium 8.0 L, Phosphorus 3.0, Magnesium 1.3 L 05/24/18 19:00: Blood Type O Positive, Antibody Screen Negative, Crossmatch ([facility] ) See Detail 05/24/18 19:00: WBC 6.0, RBC 3.26 L, Hgb 7.3 L*, Hct 24.4 L, MCV 74.7 L, MCH 22.4 L, MCHC 30.0 L, RDW 16.1, Plt Count 304, MPV 8.9, Neut % (Auto) 71.6, Lymph % (Auto) 22.1, [place] % (Auto) 4.7, Eos % (Auto) 0.9, Baso % (Auto) 0.6, Neut # (Auto) 4.3, Lymph # (Auto) 1.3, [place] # (Auto) 0.3, Eos # (Auto) 0.1, Baso # (Auto) 0.0 05/24/18 19:00: Sodium 146 H, Potassium 3.2 L, Chloride 109 H, Carbon Dioxide 30 , Anion Gap 10.2, BUN 17, Creatinine 1.06, Estimated Creat Clear 53, Estimated GFR 67, Est GFR ( Amer) 81, Glucose 152 H, Calcium 8.1 L 05/25/18 02:30: Hgb 8.1 L D, Hct 26.6 L 05/25/18 05:27: WBC 6.4, RBC 3.98 L, Hgb 8.8 L, Hct 29.0 L, MCV 72.9 L, MCH 22.2 L, MCHC 30.4 L, RDW 16.2, Plt Count 346, MPV 7.7, Neut % (Auto) 78.6, Lymph % (Auto) 16.1, [place] % (Auto) 4.7, Eos % (Auto) 0.3, Baso % (Auto) 0.3, Neut # (Auto) 5.1, Lymph # (Auto) 1.0, [place] # (Auto) 0.3, Eos # (Auto) 0.0, Baso # (Auto) 0.0 05/25/18 05:27: Sodium 147 H, Potassium 3.2 L, Chloride 109 H, Carbon Dioxide 30 , Anion Gap 11.2, BUN 16, Creatinine 1.01, Estimated Creat Clear 56, Estimated GFR 71, Est GFR ( Amer) 86, Glucose 157 H, Calcium 8.5 05/25/18 06:22: POC Glucose 149 H I & O for Last 24 hours: Intake & Output 05/22/18 05/23/18 05/24/18 05/25/18 11:59 11:59 11:59 11:59 Intake Total 765 / 765 Output Total 2700 / 2700 Balance -1934 / -1934 Weight 151 lb 6 oz Narrative: Patient with rhonchi in both lung [place]. Slight wheezing in the expiratory phase in the bases. Heart rate regular. Abdomen soft. Alert, no edema. Assessment and Plan (1) Iron deficiency anemia Current visit: Yes Status: Acute Category: Medical Code(s): D50.9 - Iron deficiency anemia, unspecified (2) Dizziness Current visit: No Status: Acute Category: Medical Code(s): R42 - Dizziness and giddiness (3) Fatigue Current visit: No Status: Acute Qualifiers: Category: Medical Code(s): R53.83 - Other fatigue (4) Hemoptysis Current visit: No Status: Acute Category: Medical Code(s): R04.2 - Hemoptysis (5) Cardiac pacemaker in situ Problem details: Current visit: No Status: Chronic Category: Medical Code(s): Z95.0 - Presence of cardiac pacemaker (6) Chronic kidney disease, stage 2 (mild) Current visit: No Status: Chronic Category: Medical Code(s): N18.2 - Chronic kidney disease, stage 2 (mild) (7) Hypernatremia Current visit: Yes Status: Acute Category: Medical Code(s): E87.0 - Hyperosmolality and hypernatremia (8) Hypokalemia Current visit: Yes Status: Acute Category: Medical Code(s): E87.6 - Hypokalemia - Assessment and plan all Dx Assessment and Plan for all problems:: Chronic COPD with exacerbation issues. Mild wheezing this morning. Although pneumonic infiltrate has improved I will cover with ceftriaxone and add steroids. PT evaluation for skilled care.
--- NOTE | 2018-05-25 10:12 | Pharmacy Consult Notes ---
[facility] Pharmacy VTE Monitoring - Patient Demographics Admission date: 05/24/18 Report Date: 05/25/18 Time: 10:12 Allergies/Adverse Reactions: Patient Allergies Penicillins Allergy (Severe, Verified 03/22/18 20:39) throat closure Height: 1.83 m Weight: 68.663 kg Patient Problems: Current Active Problems Iron deficiency anemia (Acute) Hypernatremia (Acute) Hypokalemia (Acute) - VTE Risk Labs: VTE Related Lab Results Hgb 8.8 g/dL (14.1-18.0) L 05/25/18 05:27 Hct 29.0 % (42.0-52.0) L 05/25/18 05:27 Plt Count 346 K/mm3 (142-424) 05/25/18 05:27 BUN 16 mg/dL (7-18) 05/25/18 05:27 Creatinine 1.01 mg/dL (0.70-1.30) 05/25/18 05:27 Estimated Creat Clear 56 mL/min (0-300) 05/25/18 05:27 Was VTE Risk Assessment Performed: Yes Clinical Trial Participant: No - Prophylaxis VTE Prophylaxis Ordered?: Yes Types of VTE Prophylaxis: TEDS Knee High
--- NOTE | 2018-05-26 09:13 | Progress Note ---
Internal Medicine - PN: Subj *Date: 05/26/18 *Time: 08:40 Interval history: Patient reports no further bleeding from penis. He has had a few drops of blood in his urine. + dysuria, no frequency, urgency or difficulty urinating. + nausea, no vomiting or diarrhea. He requests gabapentin to be restarted for his neuropathy. Alert and oriented x3. Rate and rhythm regular. Soft flow murmur. Lung sounds clear and equal. No LE edema. Abdomen soft and nontender Exam Vital signs and Labs for Last 24 Hours: Temp Pulse Resp BP Pulse Ox 97.9 F 80 20 134/74 97 05/26/18 07:29 05/26/18 07:29 05/26/18 07:29 05/26/18 07:29 05/26/18 07:29 Laboratory Results - last 24 hr 05/25/18 10:54: POC Glucose 169 H 05/25/18 16:22: POC Glucose 215 H 05/25/18 20:33: POC Glucose 173 H 05/26/18 06:09: POC Glucose 171 H I & O for Last 24 hours: Intake & Output 05/23/18 05/24/18 05/25/18 05/26/18 11:59 11:59 11:59 11:59 Intake Total 1015 / 1015 720 / 720 Output Total 2700 / 2700 650 / 650 Balance -1685 / -1685 70 / 70 Weight 151 lb 6 oz 151 lb 6.016 oz Assessment and Plan (1) Iron deficiency anemia Current visit: Yes Status: Acute Category: Medical Code(s): D50.9 - Iron deficiency anemia, unspecified (2) Dizziness Current visit: No Status: Acute Category: Medical Code(s): R42 - Dizziness and giddiness (3) Fatigue Current visit: No Status: Acute Qualifiers: Category: Medical Code(s): R53.83 - Other fatigue (4) Hemoptysis Current visit: No Status: Acute Category: Medical Code(s): R04.2 - Hemoptysis (5) Cardiac pacemaker in situ Problem details: Current visit: No Status: Chronic Category: Medical Code(s): Z95.0 - Presence of cardiac pacemaker (6) Chronic kidney disease, stage 2 (mild) Current visit: No Status: Chronic Category: Medical Code(s): N18.2 - Chronic kidney disease, stage 2 (mild) (7) Hypernatremia Current visit: Yes Status: Acute Category: Medical Code(s): E87.0 - Hyperosmolality and hypernatremia (8) Hypokalemia Current visit: Yes Status: Acute Category: Medical Code(s): E87.6 - Hypokalemia - Assessment and plan all Dx Assessment and Plan for all problems:: Urinalysis, urine culture and urology consult today for hematuria/dysuria. He is on rocephin for his pneumonia which provides coverage for UTI, as well. He is ambulating in the room with stand by assistance. [facility] access services representative is at bedside and arrangements have been made for discharge to tomorrow.
[2018-05-26 10:48] LABS: Microscopic, Urine URINE MICROSCOPIC (MICROSCOPIC)
[2018-05-26 10:51] LABS: Appearance,Urine CLEAR (Clear); Blood, Urine 2+ (Negative); Color,Urine YELLOW (Yellow); Glucose,Urine (UA) Negative (Negative); Ketones,Urine 1+ (Negative); Leukocyte Esterase,Urine Negative (Negative); Protein,Urine 2+ (Negative); Specific Gravity, Urine 1.025 (1.005-1.030)
[2018-05-26 11:01] LABS: Bilirubin,Urine Negative (Negative)
[2018-05-26 11:02] LABS: Bacteria,Urine Trace /lpf; Mucus,Urine 1+ /lpf; RBC,Urine 20-50 #/hpf (0-3); WBC,Urine Occasional #/hpf (0-3)
--- NOTE | 2018-05-26 12:21 | Consult Report ---
*Admission Date: 05/24/18 *Chief complaint: Gross hematuria *History of present illness: Patient is an 82-year-old white male referred from Dr. Polanco for recent gross hematuria. Patient was admitted with several week history of shortness of breath dizziness and hemoptysis. He notes maroon colored urine since here on admission. He states a prior history of blood in his urine about a year ago. There is been no recent urethral instrumentation. Patient is on Xarelto. Does have a history of BPH and is on tamsulosin with improved voiding. His creatinine is 1.2 and his GFR is 58. He denies any back pain or history of stones. No recent imaging has been performed. Past medical history includes atrial fibrillation, COPD, coronary artery disease , diabetes mellitus type 2, GERD, he is on home oxygen, hyperlipidemia, hypertension, internal pacemaker, chronic kidney disease, cataracts, hypothyroidism Past surgical history: CABG, coronary stents, hernia repair, pacemaker placement Social history attended high school, smoking status: Former smoker Ears smoked: 30 Alcohol intake: Never Occupation, retired housing: Lives in a house with caregiver Review of systems pertinent systems reviewed and as per history of present illness On exam well-nourished white male in no apparent distress Pupils equal round reactive to light Abdomen normal to visual inspection No CVA tenderness Normal respiratory effort Alert and oriented 3 Labs: Hemoglobin 7.3 potassium 2.8 on admission Assessment plan:gross hematuria in this 82-year-old white male with multiple medical problems including chronic anticoagulation. Recommend CT scan without contrast while an inpatient and cystoscopy in the office as an outpatient. I will be out of town next week and patient may return to see me in the office in 2-3 weeks at which time we will proceed with cystoscopy. . [facility] History Medical History: Reports:: Atrial Fibrillation, Chronic Obstructive Pulmonary Disease (COPD), Coronary Artery Disease, Diabetes Mellitus Type 2, Gastroesophageal Reflux Disease(GERD), Home Oxygen, Hyperlipidemia, Hypertension , Internal Pacemaker, Renal Disease Denies:: Cancer, Diabetes Mellitus Type 1, MRSA, Seizures Other Medical History: Reports: Anemia, Arthritis, Blood Transfusion Reaction, Cataracts, Hypothyroidism Other Surgeries: Yes: CABG, Cardiac Catheterization, Coronary Stent, Hernia Repair, Pacemaker, Other Amputation: No Fractures: No - *Social History Educational Level: Attended High School Smoking Status: Former smoker Tobacco Type: cigarettes # Packs/Day (cigarettes): 1 #Yrs smoked (if former smoker): 30 Alcohol Intake: never Occupational Status: retired Housing: house Household Members: caregiver, none - Psychiatric History Expresses thoughts of harming self/others: None Suicide Plan Description: No Plan *Family Hx:: No significant family history Meds Home Medications Medication Instructions Recorded Confirmed Type Albuterol Sulfate [Proair 2 puffs IH QID 11/12/17 05/25/18 History Respiclick] Fludrocortisone Acetate [Florinef 0.1 mg PO HS 11/12/17 05/25/18 History 0.1mg tablet] Nitroglycerin 0.4 mg SL NEEDED PRN 11/12/17 05/25/18 History Pantoprazole Sodium [Protonix 40mg 40 mg PO HS 11/12/17 05/25/18 History tablet] Rivaroxaban [Xarelto] 20 mg PO HS 11/12/17 05/25/18 History Simvastatin [Zocor] 40 mg PO HS 11/12/17 05/25/18 History Tamsulosin HCl [Flomax] 0.4 mg PO HS 11/12/17 05/25/18 History Gabapentin [Gabapentin 100mg Cap] 100 - 200 mg PO TID 01/14/18 05/25/18 History Levothyroxine Sodium 50 mcg PO DAILY 01/14/18 05/25/18 History [Levothyroxine 50mcg (0.05mg) Tab] raNITIdine HCl [Zantac] 150 mg PO BID 01/14/18 05/25/18 History Amlodipine Besylate [Amlodipine 10 mg PO HS 01/15/18 05/25/18 History 10mg Tab] Ferrous Sulfate [Ferrous Sulfate 325 mg PO DAILY 01/15/18 05/25/18 History 325mg Tablet] Metformin HCl 1,000 mg PO BID 01/15/18 05/25/18 History Furosemide [Furosemide 20mg Tab] 20 mg PO QAM 03/22/18 05/25/18 History Ondansetron HCl [Ondansetron 4mg 4 mg PO Q8HP PRN 03/22/18 05/25/18 History Tab] Fluticasone/Vilanterol [Breo 1 puff IH DAILY 03/23/18 05/25/18 History Ellipta 100-25 Mcg INH] Potassium 99 mg PO DAILY 05/24/18 05/24/18 History Azithromycin [Zithromax 250mg 250 mg PO DIRECTED 05/25/18 05/25/18 History tab] predniSONE [Deltasone 20mg 20 mg PO BID 05/25/18 05/25/18 History tablet] Allergies Allergy/AdvReac Type Severity Reaction Status Date / Time Penicillins Allergy Severe throat Verified 03/22/18 20:39 closure Exam Vital signs and Labs for Last 24 Hours: Temp Pulse Resp BP Pulse Ox 97.9 F 80 20 134/74 97 05/26/18 07:29 05/26/18 07:29 05/26/18 07:29 05/26/18 07:29 05/26/18 07:29 Laboratory Results - last 24 hr 05/25/18 16:22: POC Glucose 215 H 05/25/18 20:33: POC Glucose 173 H 05/26/18 06:09: POC Glucose 171 H 05/26/18 10:40: Urine Color Yellow, Urine Appearance Clear, Urine pH 7.0, Ur Specific [place] 1.025, Urine Protein 2+, Urine Glucose (UA) Negative, Urine Ketones 1+, Urine Blood 2+, Urine Nitrate Negative, Urine Bilirubin Negative, Urine Urobilinogen 1.0, Ur Leukocyte Esterase Negative, Urine RBC 20-50, Urine WBC Occasional, Ur Squamous Epith Cells 3-5, Urine Bacteria Trace, Urine Mucus 1 + 05/26/18 11:10: POC Glucose 222 H I & O for Last 24 hours: Intake & Output 05/23/18 05/24/18 05/25/18 05/26/18 23:59 23:59 23:59 23:59 Intake Total 240 / 240 1135 / 1135 360 / 360 Output Total 350 / 350 2850 / 2850 150 / 150 Balance -110 / -110 -1715 / -1715 210 / 210 Weight 68.663 kg 68.663 kg 68.663 kg Internal Medicine - CN: Reslt - Labs CBC & Chem 7: 05/25/18 05:27 05/25/18 05:27 Labs: Urine 05/26/18 Range/Units 10:40 Urine Color Yellow (Yellow) Urine Appearance Clear (Clear) Urine pH 7.0 (5.0-8.5) Ur Specific [place] 1.025 (1.005-1.030) Urine Protein 2+ (Negative) Urine Glucose (UA) Negative (Negative) Assessment and Plan (1) Iron deficiency anemia Current visit: Yes Status: Acute Category: Medical Code(s): D50.9 - Iron deficiency anemia, unspecified (2) Dizziness Current visit: No Status: Acute Category: Medical Code(s): R42 - Dizziness and giddiness (3) Fatigue Current visit: No Status: Acute Qualifiers: Category: Medical Code(s): R53.83 - Other fatigue (4) Hemoptysis Current visit: No Status: Acute Category: Medical Code(s): R04.2 - Hemoptysis (5) Cardiac pacemaker in situ Problem details: Current visit: No Status: Chronic Category: Medical Code(s): Z95.0 - Presence of cardiac pacemaker (6) Chronic kidney disease, stage 2 (mild) Current visit: No Status: Chronic Category: Medical Code(s): N18.2 - Chronic kidney disease, stage 2 (mild) (7) Hypernatremia Current visit: Yes Status: Acute Category: Medical Code(s): E87.0 - Hyperosmolality and hypernatremia (8) Hypokalemia Current visit: Yes Status: Acute Category: Medical Code(s): E87.6 - Hypokalemia
--- NOTE | 2018-05-27 07:31 | Discharge Summary ---
General - General Admission date:: 05/24/18 Discharge date: 05/27/18 HPI HPI: Patient is an 82-year-old white male referred from Dr. Polanco for recent gross hematuria. Patient was admitted with several week history of shortness of breath dizziness and hemoptysis. He notes maroon colored urine since here on admission. He states a prior history of blood in his urine about a year ago. There is been no recent urethral instrumentation. Patient is on Xarelto. Does have a history of BPH and is on tamsulosin with improved voiding. His creatinine is 1.2 and his GFR is 58. He denies any back pain or history of stones. No recent imaging has been performed. Past medical history includes atrial fibrillation, COPD, coronary artery disease , diabetes mellitus type 2, GERD, he is on home oxygen, hyperlipidemia, hypertension, internal pacemaker, chronic kidney disease, cataracts, hypothyroidism Past surgical history: CABG, coronary stents, hernia repair, pacemaker placement Social history attended high school, smoking status: Former smoker Ears smoked: 30 Alcohol intake: Never Occupation, retired housing: Lives in a house with caregiver Review of systems pertinent systems reviewed and as per history of present illness On exam well-nourished white male in no apparent distress Pupils equal round reactive to light Abdomen normal to visual inspection No CVA tenderness Normal respiratory effort Alert and oriented 3 Labs: Hemoglobin 7.3 potassium 2.8 on admission Assessment plan:gross hematuria in this 82-year-old white male with multiple medical problems including chronic anticoagulation. Recommend CT scan without contrast while an inpatient and cystoscopy in the office as an outpatient. I will be out of town next week and patient may return to see me in the office in 2-3 weeks at which time we will proceed with cystoscopy. . Hospital Course Hospital Course: Mr. Blackwell was admitted due to some symptomatic anemia, hyponatremia, hypokalemia. During admission found to have some worsening cough with concern for COPD exacerbation as well as found to have gross hematuria. Responded well to transfusion. Started on steroids for COPD exacerbation. However given her long-term smoking history and gross hematuria that is painless, urology consult placed. Concern for possible urologic cancer given history and onset of symptom vs trauma. Patient was assessed by physical therapy and Occupational Therapy who recommended short-term nursing care for rehab. Patient had no acute events while in the hospital with improvement in symptoms of fatigue as electrolytes improved and hemoglobin increased after transfusion. Plan for outpatient repeat UA in [address] imaging and Urologic follow-up if hematuria persistent. Please obtain CBC, UA, and BMP on Wednesday 05/30 and send results to [facility] Attn: Dr. Carter. Objective Vital signs: Temp Pulse Resp BP Pulse Ox 98.0 F 80 16 105/64 98 05/27/18 04:00 05/27/18 04:00 05/27/18 04:00 05/27/18 04:00 05/27/18 04:00 - *Routine HEENT Exam Head: Present: normocephalic, atraumatic Eye: Present: EOMI, PERRL. Absent: conjunctival icterus ENT: Present: mucous membranes moist Comments: bitemporal wasting ,edentulous - *Routine Neck Exam Present: supple. Absent: lymphadenopathy - *Routine Respiratory Exam Present: CTA bilaterally. Absent: accessory muscle use, wheezes, crackles - *Routine Cardiovascular Exam Present: RRR, Normal S1, Normal S2. Absent: murmur, gallop, rubs - *Routine Abdominal Exam Present: soft, normoactive bowel sounds. Absent: tenderness - *Routine Rectal Exam Patient deferred: visual exam - *Routine Exam Patient deferred: penile exam - *Routine Extremities Exam Present: pulses intact. Absent: clubbing, edema - *Routine Skin Exam Present: intact. Absent: rash - *Routine Neurological Exam Present: alert, oriented X3, CN II-XII intact Results Labs on day of discharge: Labs from last 24 hours 05/27/18 05/26/18 05/26/18 05:58 20:08 16:21 POC Glucose 224 H 283 H 258 H Urine Color Urine Appearance Urine pH Ur Specific [place] Urine Protein Urine Glucose (UA) Urine Ketones Urine Blood Urine Nitrate Urine Bilirubin Urine Urobilinogen Ur Leukocyte Esterase Urine RBC Urine WBC Ur Squamous Epith Cells Urine Bacteria Urine Mucus 05/26/18 05/26/18 11:10 10:40 POC Glucose 222 H Urine Color Yellow Urine Appearance Clear Urine pH 7.0 Ur Specific [place] 1.025 Urine Protein 2+ Urine Glucose (UA) Negative Urine Ketones 1+ Urine Blood 2+ Urine Nitrate Negative Urine Bilirubin Negative Urine Urobilinogen 1.0 Ur Leukocyte Esterase Negative Urine RBC 20-50 Urine WBC Occasional Ur Squamous Epith Cells 3-5 Urine Bacteria Trace Urine Mucus 1+ DS: Diagnosis - Discharge Diagnosis (1) Iron deficiency anemia Status: Acute Problem details: Chronic Responding to transfusion Continue iron supplementation and outpatient setting (2) Dizziness Status: Acute Problem details: Suspect due to electrolyte abnormalities and anemia Improved with treatment of the above PT OT assessment with recommendations for SNF placement (3) Fatigue Status: Acute (4) Hemoptysis Status: Acute (5) Cardiac pacemaker in situ Status: Chronic Problem details: (6) Chronic kidney disease, stage 2 (mild) Status: Chronic (7) Hypernatremia Status: Acute (8) Hypokalemia Status: Acute (9) Hematuria Status: Acute Problem details: repeat UA in 3 days as outpatient - if persistent, CT abdomen w/o contrast adn referral to Urology for cystoscopy Discharge Plan - Patient Discharge Instructions ACTIVITY: Up with assistance DIET: continue same diet - Follow up Plan Follow up with: Haseeb Carter MD [Primary Care Provider] - 1 week (post hospital follow-up; Pneumonia, Anemia, Hematuria) Brandon Cordova MD [Staff Physician] - 2 weeks (gross hematuria, cystoscopy) Disposition: Xfer SNF Home Medications: Home Medications Medication Instructions Recorded Confirmed Type Albuterol Sulfate [Proair 2 puffs IH QID 11/12/17 05/25/18 History Respiclick] Fludrocortisone Acetate [Florinef 0.1 mg PO HS 11/12/17 05/25/18 History 0.1mg tablet] Nitroglycerin 0.4 mg SL NEEDED PRN 11/12/17 05/25/18 History Pantoprazole Sodium [Protonix 40mg 40 mg PO HS 11/12/17 05/25/18 History tablet] Rivaroxaban [Xarelto] 20 mg PO HS 11/12/17 05/25/18 History Simvastatin [Zocor] 40 mg PO HS 11/12/17 05/25/18 History Tamsulosin HCl [Flomax] 0.4 mg PO HS 11/12/17 05/25/18 History Gabapentin [Gabapentin 100mg Cap] 100 - 200 mg PO TID 01/14/18 05/25/18 History Levothyroxine Sodium 50 mcg PO DAILY 01/14/18 05/25/18 History [Levothyroxine 50mcg (0.05mg) Tab] raNITIdine HCl [Zantac] 150 mg PO BID 01/14/18 05/25/18 History Amlodipine Besylate [Amlodipine 10 mg PO HS 01/15/18 05/25/18 History 10mg Tab] Ferrous Sulfate [Ferrous Sulfate 325 mg PO DAILY 01/15/18 05/25/18 History 325mg Tablet] Metformin HCl 1,000 mg PO BID 01/15/18 05/25/18 History Furosemide [Furosemide 20mg Tab] 20 mg PO QAM 03/22/18 05/25/18 History Ondansetron HCl [Ondansetron 4mg 4 mg PO Q8HP PRN 03/22/18 05/25/18 History Tab] Fluticasone/Vilanterol [Breo 1 puff IH DAILY 03/23/18 05/25/18 History Ellipta 100-25 Mcg INH] Potassium 99 mg PO DAILY 05/24/18 05/24/18 History Azithromycin [Zithromax 250mg 250 mg PO DIRECTED 05/25/18 05/25/18 History tab] predniSONE [Deltasone 20mg 20 mg PO BID 05/25/18 05/25/18 History tablet] Prescriptions/Medication Reconciliation: New Tamsulosin HCl [Flomax 0.4mg capsule] 0.4 mg PO HS cap.er.24h Gabapentin [Neurontin 100mg cap] 100 mg PO TID capsule Continue Pantoprazole Sodium [Protonix 40mg tablet] 40 mg PO HS Simvastatin [Zocor] 40 mg PO HS Rivaroxaban [Xarelto] 20 mg PO HS Nitroglycerin 0.4 mg SL NEEDED PRN PRN Reason: Chest Pain Albuterol Sulfate [Proair Respiclick] 2 puffs IH QID Gabapentin [Gabapentin 100mg Cap] 100 - 200 mg PO TID raNITIdine HCl [Zantac] 150 mg PO BID Levothyroxine Sodium [Levothyroxine 50mcg (0.05mg) Tab] 50 mcg PO DAILY Metformin HCl 1,000 mg PO BID Ferrous Sulfate [Ferrous Sulfate 325mg Tablet] 325 mg PO DAILY Nebulizer and Compressor [Portable Nebulizer System] 1 each MC Q4H PRN 30 Days #1 each PRN Reason: Shortness Of Breath Fluticasone/Vilanterol [Breo Ellipta 100-25 Mcg INH] 1 puff IH DAILY Amlodipine Besylate [Amlodipine 10mg Tab] 10 mg PO HS Ipratropium/Albuterol Sulfate [Duoneb 3mL neb] 3 ml IH Q4HP PRN 30 Days #120 ampul.neb PRN Reason: Shortness Of Breath Potassium 99 mg PO DAILY Changed predniSONE [Deltasone 20mg tablet] 40 mg PO DAILY #6 tab Discontinued Tamsulosin HCl [Flomax] 0.4 mg PO HS Fludrocortisone Acetate [Florinef 0.1mg tablet] 0.1 mg PO HS Furosemide [Furosemide 20mg Tab] 20 mg PO QAM Azithromycin [Zithromax 250mg tab] 250 mg PO DIRECTED Ondansetron HCl [Ondansetron 4mg Tab] 4 mg PO Q8HP PRN PRN Reason: Nausea
== END 2018-05-27 13:14 | disposition home or self-care (01) ==
LOC: 2ND → OBSVTOIN 09:12
PROVIDERS: ADMIT Internal Medicine Adolescent Medicine; ATTEND Internal Medicine Adolescent Medicine
CPT/HCPCS: 36415; 71020; 71046; 80048; 80053; 81001; 82962; 83735; 84100; 85014; 85018; 85025; 86850; 87086; 94640; 94760; 94761; 97110; 97116; 97162; 97166; 98960; J2405; P9016

== ENCOUNTER → 2018-06-28 12:15 | Outpatient (CLI) | payer MEDICARE, MEDICAID, SELFPAY ==
[2018-06-28 12:36] LABS: Basophils % 0.5 % (0.1-2.0); Eosinophils # 0.1 K/mm3 (0.0-0.4); Eosinophils % 1.1 % (0.1-12.0); Hematocrit 35.9 % (42.0-52.0); Hemoglobin 10.9 g/dL (14.1-18.0); Lymphocytes % 23.8 K/mm3 (10-50); Mean Corpuscular HGB Conc 30.3 g/dL (31.8-35.4); Mean Corpuscular Hemoglobin 22.2 pg (27.0-31.2); Mean Corpuscular Volume 73.3 fl (80-94); Mean Platelet Volume 7.6 fl (7.4-10.4); Monocytes # 0.5 K/mm3 (0.1-1.0); Monocytes % 5.5 % (1.7-9.3); Neutrophils # 5.9 K/mm3 (1.8-7.8); Neutrophils % 69.1 % (37.0-80.0); Platelet Count 262 K/mm3 (142-424); Red Blood Count 4.89 M/mm3 (4.60-6.20); Red Cell Distribution Width 17.6 % (11.5-17.5); White Blood Count 8.5 K/mm3 (4.8-10.8)
[2018-06-28 13:56] LABS: Anion Gap 12.6 mEq/L (5-15); Blood Urea Nitrogen 37 mg/dL (7-18); Calcium 8.7 mg/dL (8.5-10.1); Carbon Dioxide 29 mmol/L (21.0-32.0); Chloride 101 mmol/L (98-107); Creatinine,Serum 1.89 mg/dL (0.70-1.30); Estimated Glomerular Filt Rate 34 ml/min (>60); GFR (African American) 42 ML/MIN (>60); Glucose 190 mg/dL (74-106); Potassium 3.6 mmoL/L (3.5-5.1); Sodium 139 mmol/L (136-145)
== END ==
PROVIDERS: PCP Internal Medicine Adolescent Medicine; Visit Provider Internal Medicine Adolescent Medicine
DX: R55 Syncope and collapse (principal)
CPT/HCPCS: 36415; 80048; 85025

== ENCOUNTER → 2018-06-28 14:45 | Outpatient (POV) | payer MEDICARE, MEDICAID, SELFPAY | PROVIDERS: PCP Internal Medicine Adolescent Medicine; Visit Provider Internal Medicine | DX: Z00.00 Encounter for general adult medical examination without abnormal findings (principal) ==

== ENCOUNTER 2018-07-21 18:43 | Observation (INO) ==
--- NOTE | 2018-07-21 19:01 | Emergency Department Note ---
ED Disposition Clinical Impression: Anemia, Congestive cardiac failure, Pleural effusion due to CHF (congestive heart failure) Disposition: Still a Patient Condition on Discharge: Fair Referrals: Haseeb Carter MD [Primary Care Provider] - - Critical Care Critical Care Time: No Attestation: On 07/21/18, the high probability of a clinically significant, sudden or life threatening deterioration of the following system(s) required my full and direct attention, intervention and personal management. The time I documented below is in addition to time spent performing reported procedures but includes the following listed in this critical care notation. Medical Decision Making - Edmar Inquiry Pt receiving controlled substance: No Edmar was queried for this patient: No Vital Signs: 07/21/18 18:50 07/21/18 19:51 Temperature 98.1 F Temperature Source Oral Pulse Rate [Left Radial] 83 80 Respiratory Rate 20 16 Blood Pressure [Right Arm] 145/78 132/72 Blood Pressure Mean [Right Arm] 100 92 Blood Pressure Source [Right Arm] Automatic Cuff Blood Pressure Position [Right Arm] Sitting Sitting 02 Sat by Pulse Oximetry 93 L 93 L Oxygen Delivery Method Nasal Cannula Nasal Cannula Oxygen Flow Rate (LPM) 4 4 - Lab Data Lab Results 07/21/18 18:45: WBC 6.4, RBC 3.62 L, Hgb 8.4 L, Hct 27.8 L, MCV 76.8 L, MCH 23.1 L, MCHC 30.0 L, RDW 19.3 H, Plt Count 369, MPV 7.0 L, Neut % (Auto) 70.3, Lymph % (Auto) 21.1, [place] % (Auto) 5.7, Eos % (Auto) 2.5, Baso % (Auto) 0.5, Neut # (Auto) 4.5, Lymph # (Auto) 1.4, [place] # (Auto) 0.4, Eos # (Auto) 0.2, Baso # (Auto) 0.0 07/21/18 18:45: Sodium 145, Potassium 4.4, Chloride 108 H, Carbon Dioxide 29, Anion Gap 12.4, BUN 17, Creatinine 1.09, Estimated Creat Clear 49, Estimated GFR 65, Est GFR ( Amer) 79, Glucose 172 H, Calcium 8.8, Magnesium 1.8, Total Bilirubin 1.1 H, AST 9 L, ALT 18, Alkaline Phosphatase 95, Total Creatine Kinase 65, CK-MB (CK-2) 1.2, CK-MB (CK-2) Rel Index 1.8, Troponin I < 0.02, Total Protein 7.0, Albumin 3.1 L, Globulin 3.9 H, Albumin/Globulin Ratio 0.8 L 07/21/18 18:45: B-Natriuretic Peptide 674 H Result diagrams: 07/21/18 18:45 07/21/18 18:45 Orders (Tests/Meds): ORDERS Category Date Time Status Abdomen XR flat & upright [XR acute abdomen series] Exams 07/21/18 19:02 Taken Stat XR chest 2V Stat Exams 07/21/18 19:02 Taken ECG Request by /Catherine Stat Y 07/21/18 19:02 Ordered - ECG Data Tracing #1 Paced rhythm 80/min no acute ECG initial impression date: 07/21/18 ECG initial impression time: 19:20 Medical Decision Narrative: 03/2018 MPRESSION: Intermediate probability for pulmonary embolus MPRESSION: 1. Diffuse increased interstitial markings and may be related to interstitial edema from CHF, plasma volume overload, or interstitial pneumonitis. 2. No change void 5.6 cm mass in the right lower lobe posteriorly. 3. Slight increase in size of loculated right-sided pleural effusion. Trace left pleural effusion. 4. Centrilobular emphysema with scattered fibrotic changes 2 d echo CONCLUSION: 1. Biatrial enlargement, normal left ventricular size, mild concentric left ventricular hypertrophy, visually estimated ejection fraction 55% with no obvious regional wall motion abnormality, there is abnormal septal motion. 2. Moderate mitral and moderate tricuspid regurgitation, calculated right ventricular systolic pressure is 53 mmHg consistent with moderate pulmonary hypertension. 3. Mildly enlarged right ventricle with normal contractility 4. No significant pericardial effusion noted. I discussed the case with Dr. Latham to admit him and transfuse with 1 unit of packed RBCs. Resp/SOB HPI - General Chief Complaint: Shortness of Breath/Dyspnea Stated Complaint: GENERAL WEAKNESS Time Seen by Provider: 07/21/18 18:55 Mode of Arrival: Ambulatory Limitations: No Limitations Description of Symptoms (Recalled from ER Triage Doc. by RN): to ed per pvt car with c/o generalized weakness, sob x 1 week and abd discomfort. pt wears o2 4L 24/7. cpta none - History of Present Illness 82 years old white male with complex past medical history including coronary artery disease status post CABG COPD diabetes and possible colonic cancer. For the past 2 days he has been experiencing shortness of breath this worse with standing and urinating. He denies having hemoptysis chest pain palpitations nausea vomiting diarrhea dysuria or hematuria hematemesis coffee-ground emesis melanotic stool or bleeding per rectum. MD Complaint: shortness of breath Onset (ago): day(s) (2 days.) Severity: moderate Consistency/Duration: intermittent Relieving factors: rest Exacerbating factors: exertion Known history of: COPD, diabetes Associated symptoms: denies other symptoms Treatment prior to arrival: none - Related Data Home Medications Medication Instructions Recorded Confirmed Albuterol Sulfate [Proair 2 puffs IH QID 11/12/17 05/25/18 Respiclick] Nitroglycerin 0.4 mg SL NEEDED PRN 11/12/17 05/25/18 Pantoprazole Sodium [Protonix 40mg 40 mg PO HS 11/12/17 05/25/18 tablet] Rivaroxaban [Xarelto 20mg Tablet] 20 mg PO HS 11/12/17 05/25/18 Simvastatin [Zocor] 40 mg PO HS 11/12/17 05/25/18 Gabapentin [Gabapentin 100mg Cap] 100 - 200 mg PO TID 01/14/18 05/25/18 Levothyroxine Sodium 50 mcg PO DAILY 01/14/18 05/25/18 [Levothyroxine 50mcg (0.05mg) Tab] raNITIdine HCl [Zantac] 150 mg PO BID 01/14/18 05/25/18 Amlodipine Besylate [Amlodipine 10 mg PO HS 01/15/18 05/25/18 10mg Tab] Ferrous Sulfate [Ferrous Sulfate 325 mg PO DAILY 01/15/18 05/25/18 325mg Tablet] Metformin HCl 1,000 mg PO BID 01/15/18 05/25/18 Fluticasone/Vilanterol [Breo 1 puff IH DAILY 03/23/18 05/25/18 Ellipta 100-25 Mcg INH] Potassium 99 mg PO DAILY 05/24/18 05/24/18 Previous Rx's Medication Instructions Recorded Ipratropium/Albuterol Sulfate 3 ml IH Q4HP PRN 30 Days #120 01/17/18 [Duoneb 3mL neb] ampul.neb Nebulizer and Compressor [Portable 1 each MC Q4H PRN 30 Days #1 each 01/17/18 Nebulizer System] Gabapentin [Neurontin 100mg 100 mg PO TID cap 05/27/18 cap] Tamsulosin HCl [Flomax 0.4mg 0.4 mg PO HS cap.er.24h 05/27/18 capsule] predniSONE [Deltasone 20mg 40 mg PO DAILY #6 tab 05/27/18 tablet] Allergies Allergy/AdvReac Type Severity Reaction Status Date / Time Penicillins Allergy Severe throat Verified 03/22/18 20:39 closure [facility] History I have reviewed the patient's past medical history: Yes Medical History: Reports:: Atrial Fibrillation, Chronic Obstructive Pulmonary D isease (COPD), Coronary Artery Disease, Diabetes Mellitus Type 2, Gastroesophageal Reflux Disease(GERD), Home Oxygen, Hyperlipidemia, Hypertension, Internal Pacemaker, Renal Disease Denies:: Cancer, Diabetes Mellitus Type 1, MRSA, Seizures Other Medical History: Reports: Anemia, Arthritis, Blood Transfusion Reaction, Cataracts, Hypothyroidism Comment: Reviewed recent medical records. Admitted here January 14- for COPD exacerbation. Recent imaging: CT scan of the chest on 03/18/18 showed diffuse increase interstitial markings and may be related to interstitial edema from CHF, plasma volume overload, or interstitial pneumonitis. No change of an ovoid 5.6 cm mass in the right lower lobe posteriorly. Slight increase in size of loculated right-sided pleural effusion. Trace left pleural effusion. Centrilobular emphysema with scattered fibrotic changes. Echocardiogram 03/18/18 showed biatrial enlargement, normal left ventricular size, mild concentric left ventricular hypertrophy. Estimated EF of 55% with no obvious regional wall motion abnormality. Abnormal septal motion. Moderate mitral and tricuspid regurgitation. Mild enlarged right ventricle with normal contractility. No pericardial effusion. Other Surgeries: Yes: CABG, Cardiac Catheterization, Coronary Stent, Hernia Repair, Pacemaker, Other Amputation: No Fractures: No Comment: cabg x4 - Social History Smoking Status: Former smoker Tobacco Type: cigarettes # Packs/Day (cigarettes): 1 #Yrs smoked (if former smoker): 30 Alcohol Intake: never Occupational Status: retired Housing: house Household Members: caregiver, none - Psychiatric History Expresses thoughts of harming self/others: None Suicide Plan Description: No Plan Family Hx:: No significant family history ROS Obtained: Yes All systems reviewed & no additional complaints Physical Exam - General General appearance: alert, in no apparent distress - Head Head exam: atraumatic, normocephalic, normal inspection - Eye Eye exam: Present: normal appearance, PERRL, EOMI - ENT ENT exam: Present: normal exam, normal oropharynx, mucous membranes moist, TM's normal bilaterally, normal external ear exam - Neck Neck exam: Present: normal inspection, full ROM, trachea midline, other (No JVD no carotid bruit.). Absent: tenderness, meningismus, lymphadenopathy - Chest Chest inspection: Present: normal inspection, symmetric chest wall rise. Absent: tenderness - Respiratory Respiratory exam: Present: normal lung sounds bilaterally. Absent: respiratory distress - Cardiovascular Cardiovascular exam: Present: regular rate, normal rhythm, normal heart sounds. Absent: JVD - Abdominal Exam Abdominal exam: Present: soft, normal bowel sounds. Absent: distention, tenderness, guarding, rebound, rigidity - Extremities Exam Extremities exam: Present: normal inspection, full ROM, normal capillary refill. Absent: calf tenderness - Back Exam Back exam: Present: normal inspection. Absent: tenderness, CVA tenderness (R), CVA tenderness (L), vertebral tenderness - Neurological Exam Neurological exam: Present: alert, oriented X3, CN II-XII intact, motor sensory deficit - Psychiatric Psychiatric exam: Present: normal affect, normal mood - Skin Skin exam: Present: warm, dry, intact, normal color - Lymphatic Lymphatic Findings: no adenopathy
[2018-07-21 19:12] LABS: Basophils % 0.5 % (0.1-2.0); Eosinophils # 0.2 K/mm3 (0.0-0.4); Eosinophils % 2.5 % (0.1-12.0); Hematocrit 27.8 % (42.0-52.0); Hemoglobin 8.4 g/dL (14.1-18.0); Lymphocytes # 1.4 K/mm3 (0.7-4.5); Lymphocytes % 21.1 K/mm3 (10-50); Mean Corpuscular Hemoglobin 23.1 pg (27.0-31.2); Mean Corpuscular Volume 76.8 fl (80-94); Monocytes # 0.4 K/mm3 (0.1-1.0); Monocytes % 5.7 % (1.7-9.3); Neutrophils # 4.5 K/mm3 (1.8-7.8); Neutrophils % 70.3 % (37.0-80.0); Platelet Count 369 K/mm3 (142-424); Red Blood Count 3.62 M/mm3 (4.60-6.20); Red Cell Distribution Width 19.3 % (11.5-17.5); White Blood Count 6.4 K/mm3 (4.8-10.8)
[2018-07-21 19:33] LABS: Alanine Aminotransferase 18 U/L (12-78); Albumin Level 3.1 gm/dL (3.4-5.0); Albumin/Globulin Ratio 0.8 (1.1-1.8); Alkaline Phosphatase 95 U/L (46-116); Anion Gap 12.4 mEq/L (5-15); Aspartate Amino Transferase 9 U/L (15-37); Bilirubin,Total 1.1 mg/dL (0.2-1.0); Blood Urea Nitrogen 17 mg/dL (7-18); Calcium 8.8 mg/dL (8.5-10.1); Carbon Dioxide 29 mmol/L (21.0-32.0); Chloride 108 mmol/L (98-107); Creatine Kinase 65 U/L (39-308); Globulin 3.9 gm/dl (1.3-3.2); Glucose 172 mg/dL (74-106); Potassium 4.4 mmoL/L (3.5-5.1); Sodium 145 mmol/L (136-145)
[2018-07-22 03:20] LABS: Hematocrit 27.5 % (42.0-52.0); Hemoglobin 8.5 g/dL (14.1-18.0)
[2018-07-22 07:06] LABS: Basophils % 0.4 % (0.1-2.0); Eosinophils # 0.1 K/mm3 (0.0-0.4); Eosinophils % 1.7 % (0.1-12.0); Hematocrit 27.2 % (42.0-52.0); Hemoglobin 8.4 g/dL (14.1-18.0); Lymphocytes # 1.3 K/mm3 (0.7-4.5); Lymphocytes % 20.6 K/mm3 (10-50); Mean Corpuscular HGB Conc 30.7 g/dL (31.8-35.4); Mean Corpuscular Hemoglobin 23.5 pg (27.0-31.2); Mean Corpuscular Volume 76.6 fl (80-94); Monocytes # 0.4 K/mm3 (0.1-1.0); Monocytes % 6.8 % (1.7-9.3); Neutrophils # 4.5 K/mm3 (1.8-7.8); Neutrophils % 70.4 % (37.0-80.0); Platelet Count 328 K/mm3 (142-424); Red Blood Count 3.56 M/mm3 (4.60-6.20); Red Cell Distribution Width 18.5 % (11.5-17.5); White Blood Count 6.3 K/mm3 (4.8-10.8)
[2018-07-22 07:17] LABS: Anion Gap 10.8 mEq/L (5-15); Calcium 8.9 mg/dL (8.5-10.1); Potassium 3.8 mmoL/L (3.5-5.1)
--- NOTE | 2018-07-22 07:36 | Pharmacy Consult Notes ---
[facility] Pharmacy VTE Monitoring - Patient Demographics Admission date: 07/22/18 Report Date: 07/22/18 Time: 07:36 Allergies/Adverse Reactions: Patient Allergies Penicillins Allergy (Severe, Verified 03/22/18 20:39) throat closure Height: 1.83 m Weight: 66.338 kg Patient Problems: Current Active Problems Anemia (Acute) Congestive cardiac failure (Acute) Pleural effusion due to CHF (congestive heart failure) (Acute) - VTE Risk Labs: VTE Related Lab Results Hgb 8.4 g/dL (14.1-18.0) L 07/22/18 05:57 Hct 27.2 % (42.0-52.0) L 07/22/18 05:57 Plt Count 328 K/mm3 (142-424) 07/22/18 05:57 BUN 15 mg/dL (7-18) 07/22/18 05:57 Creatinine 1.04 mg/dL (0.70-1.30) 07/22/18 05:57 Estimated Creat Clear 52 mL/min (0-300) 07/22/18 05:57 VTE Score: 9 VTE Risk Level: Moderate Risk Clinical Trial Participant: No - Prophylaxis VTE Prophylaxis Ordered?: Yes Types of VTE Prophylaxis: TEDS Knee High, Pharmacological (XARELTO) Location of Applied Device: Not Applicable
--- NOTE | 2018-07-22 07:55 | History & Physical Report ---
*Admission Date: 07/22/18 *Chief complaint: Shortness of breath *History of present illness: Mr. Blackwell is an 82-year-old male well-known to our practice who has come gated history of CHF, COPD, chronic anemia with suspected neoplastic cause. He presented to the emergency room with worsening shortness of breath and dyspnea on exertion. He reports having 2-3 days of worsening shortness of breath, difficulty when sitting up on the edge of bed with catching his breath. Denies any melena, hematochezia, overt bleeding he is aware of. Denies any chest pain, palpitations, swelling in his lower extremities. Initially seen in the ER where workup was concerning for symptomatic anemia versus CHF exacerbation due to elevated BNP. Given dose of Lasix with brisk response. Received 1 unit of packed red blood cells overnight. Repeat CBC after unit of blood had no change however. Admitted to medicine for further management of symptoms. On interview this morning patient states he still feels very weak and not feels about 50% his baseline. -Denies any fevers, headache, syncope, nausea or vomiting. [facility] History I have reviewed the patient's past medical history: Yes Medical History: Reports:: Arrhythmia, Atrial Fibrillation, Congestive Heart Failure, Chronic Obstructive Pulmonary Disease (COPD), Coronary Artery Disease, Diabetes Mellitus Type 2, Gastroesophageal Reflux Disease(GERD), Home Oxygen, Hyperlipidemia, Hypertension, Internal Pacemaker, Renal Disease Denies:: Cancer, Diabetes Mellitus Type 1, MRSA, Seizures Other Medical History: Reports: Anemia, Arthritis, Blood Transfusion Reaction, Cataracts, Hypothyroidism Other Surgeries: Yes: CABG, Cardiac Catheterization, Cardiac Surgery, Colonoscopy, Coronary Stent, Hernia Repair, Pacemaker, Other Amputation: No Fractures: No - *Social History Educational Level: Attended High School Smoking Status: Former smoker Tobacco Type: cigarettes # Packs/Day (cigarettes): 1 #Yrs smoked (if former smoker): 30 Alcohol Intake: never Occupational Status: retired Housing: house Household Members: caregiver - Psychiatric History Expresses thoughts of harming self/others: None Suicide Plan Description: No Plan *Family Hx:: No significant family history Review of Systems - Review of Systems Review of systems:: pertinent systems reviewed and negative unless documented below Meds Home Medications Medication Instructions Recorded Confirmed Type Albuterol Sulfate [Proair 2 puffs IH QID 11/12/17 07/22/18 History Respiclick] Nitroglycerin 0.4 mg SL Q5MINP PRN 11/12/17 07/22/18 History Pantoprazole Sodium [Protonix 40mg 40 mg PO HS 11/12/17 07/22/18 History tablet] Rivaroxaban [Xarelto 20mg Tablet] 20 mg PO HS 11/12/17 07/22/18 History Simvastatin [Zocor] 40 mg PO HS 11/12/17 07/22/18 History Levothyroxine Sodium 50 mcg PO DAILY 01/14/18 07/22/18 History [Levothyroxine 50mcg (0.05mg) Tab] Amlodipine Besylate [Amlodipine 10 mg PO HS 01/15/18 07/22/18 History 10mg Tab] Ferrous Sulfate [Ferrous Sulfate 325 mg PO DAILY 01/15/18 07/22/18 History 325mg Tablet] Fluticasone/Vilanterol [Breo 1 puff IH DAILY 03/23/18 07/22/18 History Ellipta 100-25 Mcg INH] Potassium 99 mg PO DAILY 05/24/18 07/22/18 History Fludrocortisone Acetate [Florinef 0.1 mg PO DAILY 07/22/18 07/22/18 History 0.1mg tablet] Furosemide [Furosemide 20mg Tab] 20 mg PO DAILY 07/22/18 07/22/18 History Metformin HCl 1,000 mg PO BID 07/22/18 07/22/18 History Ondansetron HCl [Ondansetron 4mg 4 mg PO Q8HP PRN 07/22/18 07/22/18 History Tablet] Tamsulosin HCl [Flomax 0.4mg 0.4 mg PO HS 07/22/18 07/22/18 History capsule] raNITIdine HCl [Zantac] 150 mg PO BID 07/22/18 07/22/18 History Allergies Allergy/AdvReac Type Severity Reaction Status Date / Time Penicillins Allergy Severe throat Verified 03/22/18 20:39 closure Exam Vital signs and Labs for Last 24 Hours: Temp Pulse Resp BP Pulse Ox 97.6 F 80 16 95/49 92 L 07/22/18 04:00 07/22/18 04:00 07/22/18 04:00 07/22/18 04:00 07/22/18 04:00 Laboratory Results - last 24 hr 07/21/18 18:45: WBC 6.4, RBC 3.62 L, Hgb 8.4 L, Hct 27.8 L, MCV 76.8 L, MCH 23.1 L, MCHC 30.0 L, RDW 19.3 H, Plt Count 369, MPV 7.0 L, Neut % (Auto) 70.3, Lymph % (Auto) 21.1, [place] % (Auto) 5.7, Eos % (Auto) 2.5, Baso % (Auto) 0.5, Neut # (Auto) 4.5, Lymph # (Auto) 1.4, [place] # (Auto) 0.4, Eos # (Auto) 0.2, Baso # (Auto) 0.0 07/21/18 18:45: Sodium 145, Potassium 4.4, Chloride 108 H, Carbon Dioxide 29, Anion Gap 12.4, BUN 17, Creatinine 1.09, Estimated Creat Clear 49, Estimated GFR 65, Est GFR ( Amer) 79, Glucose 172 H, Calcium 8.8, Magnesium 1.8, Total Bilirubin 1.1 H, AST 9 L, ALT 18, Alkaline Phosphatase 95, Total Creatine Kinase 65, CK-MB (CK-2) 1.2, CK-MB (CK-2) Rel Index 1.8, Troponin I < 0.02, Total Protein 7.0, Albumin 3.1 L, Globulin 3.9 H, Albumin/Globulin Ratio 0.8 L 07/21/18 18:45: B-Natriuretic Peptide 674 H 07/21/18 21:23: Blood Type O Positive, Antibody Screen Negative, Crossmatch (AHG) See Detail 07/21/18 22:38: POC Glucose 148 H 07/22/18 03:06: Hgb 8.5 L, Hct 27.5 L 07/22/18 05:32: POC Glucose 148 H 07/22/18 05:57: WBC 6.3, RBC 3.56 L, Hgb 8.4 L, Hct 27.2 L, MCV 76.6 L, MCH 23.5 L, MCHC 30.7 L, RDW 18.5 H, Plt Count 328, MPV 7.0 L, Neut % (Auto) 70.4, Lymph % (Auto) 20.6, [place] % (Auto) 6.8, Eos % (Auto) 1.7, Baso % (Auto) 0.4, Neut # (Auto) 4.5, Lymph # (Auto) 1.3, [place] # (Auto) 0.4, Eos # (Auto) 0.1, Baso # (Auto) 0.0 07/22/18 05:57: Sodium 146 H, Potassium 3.8, Chloride 108 H, Carbon Dioxide 31, Anion Gap 10.8, BUN 15, Creatinine 1.04, Estimated Creat Clear 52, Estimated GFR 69, Est GFR ( Amer) 83, Glucose 128 H D, Calcium 8.9 I & O for Last 24 hours: Intake & Output 07/19/18 07/20/18 07/21/18 07/22/18 23:59 23:59 23:59 23:59 Intake Total 0 / 0 0 / 0 Output Total 1450 / 1450 Balance 0 / 0 -1450 / -1450 Weight 69.201 kg 66.338 kg - *Routine HEENT Exam Comments: Cachectic with bilateral temporal wasting. Nasal cannula in place - *Routine Neck Exam Present: supple. Absent: JVD, lymphadenopathy, thyromegaly - *Routine Respiratory Exam Present: CTA bilaterally, prolonged expiratory phase, wheezes (Faint intermittent). Absent: crackles - *Routine Cardiovascular Exam Present: irregularly irregular. Absent: murmur - *Routine Abdominal Exam Present: soft, normoactive bowel sounds. Absent: tenderness - *Routine Rectal Exam Patient deferred: visual exam - *Routine Exam Patient deferred: penile exam - *Routine Extremities Exam Absent: cyanosis, clubbing, edema Comments: Thin with muscle wasting - *Routine Skin Exam Present: intact. Absent: cyanosis, erythema - *Routine Neurological Exam Present: alert, oriented X3, CN II-XII intact Assessment and Plan (1) Anemia Current visit: Yes Status: Acute Qualifiers: Anemia type: iron deficiency Iron deficiency anemia type: chronic blood loss Qualified Code(s): D50.0 - Iron deficiency anemia secondary to blood loss (chronic) Category: Medical Code(s): D64.9 - Anemia, unspecified Acute on chronic anemia. Received 1 unit packed red blood cells. Repeat labs this afternoon to assess response. (2) Congestive cardiac failure Current visit: Yes Status: Acute Qualifiers: Heart failure type: diastolic Category: Medical Code(s): I50.9 - Heart failure, unspecified continue home meds - diurese again this morning (3) Fatigue Current visit: No Status: Acute Qualifiers: Fatigue type: chronic, unspecified Qualified Code(s): R53.82 - Chronic fatigue, unspecified Category: Medical Code(s): R53.83 - Other fatigue acute exacerbation on chronic fatigue. (4) Dyspnea Current visit: No Status: Chronic Qualifiers: Dyspnea type: dyspnea on exertion Qualified Code(s): R06.09 - Other forms of dyspnea Category: Medical Code(s): R06.00 - Dyspnea, unspecified
--- NOTE | 2018-07-22 13:48 | Progress Note ---
Exam Vital signs and Labs for Last 24 Hours: Temp Pulse Resp BP Pulse Ox 98.5 F 80 18 119/61 97 07/22/18 12:00 07/22/18 12:00 07/22/18 12:00 07/22/18 12:00 07/22/18 12:00 Laboratory Results - last 24 hr 07/21/18 18:45: WBC 6.4, RBC 3.62 L, Hgb 8.4 L, Hct 27.8 L, MCV 76.8 L, MCH 23.1 L, MCHC 30.0 L, RDW 19.3 H, Plt Count 369, MPV 7.0 L, Neut % (Auto) 70.3, Lymph % (Auto) 21.1, [place] % (Auto) 5.7, Eos % (Auto) 2.5, Baso % (Auto) 0.5, Neut # (Auto) 4.5, Lymph # (Auto) 1.4, [place] # (Auto) 0.4, Eos # (Auto) 0.2, Baso # (Auto) 0.0 07/21/18 18:45: Sodium 145, Potassium 4.4, Chloride 108 H, Carbon Dioxide 29, Anion Gap 12.4, BUN 17, Creatinine 1.09, Estimated Creat Clear 49, Estimated GFR 65, Est GFR ( Amer) 79, Glucose 172 H, Calcium 8.8, Magnesium 1.8, Total Bilirubin 1.1 H, AST 9 L, ALT 18, Alkaline Phosphatase 95, Total Creatine Kinase 65, CK-MB (CK-2) 1.2, CK-MB (CK-2) Rel Index 1.8, Troponin I < 0.02, Total Protein 7.0, Albumin 3.1 L, Globulin 3.9 H, Albumin/Globulin Ratio 0.8 L 07/21/18 18:45: B-Natriuretic Peptide 674 H 07/21/18 21:23: Blood Type O Positive, Antibody Screen Negative, Crossmatch (AHG) See Detail 07/21/18 22:38: POC Glucose 148 H 07/22/18 03:06: Hgb 8.5 L, Hct 27.5 L 07/22/18 05:32: POC Glucose 148 H 07/22/18 05:57: WBC 6.3, RBC 3.56 L, Hgb 8.4 L, Hct 27.2 L, MCV 76.6 L, MCH 23.5 L, MCHC 30.7 L, RDW 18.5 H, Plt Count 328, MPV 7.0 L, Neut % (Auto) 70.4, Lymph % (Auto) 20.6, [place] % (Auto) 6.8, Eos % (Auto) 1.7, Baso % (Auto) 0.4, Neut # (Auto) 4.5, Lymph # (Auto) 1.3, [place] # (Auto) 0.4, Eos # (Auto) 0.1, Baso # (Auto) 0.0 07/22/18 05:57: Sodium 146 H, Potassium 3.8, Chloride 108 H, Carbon Dioxide 31, Anion Gap 10.8, BUN 15, Creatinine 1.04, Estimated Creat Clear 52, Estimated GFR 69, Est GFR ( Amer) 83, Glucose 128 H D, Calcium 8.9 07/22/18 10:16: POC Glucose 150 H I & O for Last 24 hours: Intake & Output 07/20/18 07/21/18 07/22/18 07/23/18 11:59 11:59 11:59 11:59 Intake Total 480 / 480 Output Total 3850 / 3850 Balance -3370 / -3370 Weight 146 lb 4 oz
[2018-07-22 15:07] LABS: Basophils % 0.5 % (0.1-2.0); Eosinophils # 0.1 K/mm3 (0.0-0.4); Eosinophils % 1.6 % (0.1-12.0); Hematocrit 30.3 % (42.0-52.0); Hemoglobin 9.1 g/dL (14.1-18.0); Lymphocytes # 1.5 K/mm3 (0.7-4.5); Mean Corpuscular HGB Conc 30.2 g/dL (31.8-35.4); Mean Corpuscular Hemoglobin 23.4 pg (27.0-31.2); Mean Corpuscular Volume 77.4 fl (80-94); Mean Platelet Volume 8.7 fl (7.4-10.4); Monocytes # 0.4 K/mm3 (0.1-1.0); Monocytes % 6.5 % (1.7-9.3); Neutrophils # 3.8 K/mm3 (1.8-7.8); Neutrophils % 65.4 % (37.0-80.0); Platelet Count 354 K/mm3 (142-424); Red Blood Count 3.91 M/mm3 (4.60-6.20); Red Cell Distribution Width 18.8 % (11.5-17.5); White Blood Count 5.9 K/mm3 (4.8-10.8)
[2018-07-22 15:30] LABS: Anion Gap 11.6 mEq/L (5-15); Calcium 9.1 mg/dL (8.5-10.1); Potassium 3.6 mmoL/L (3.5-5.1)
--- NOTE | 2018-07-23 08:09 | Discharge Summary ---
General - General Admission date:: 07/21/18 Discharge date: 07/23/18 HPI HPI: Mr. Blackwell is an 82-year-old male well-known to our practice who has complicated history of CHF, COPD, chronic anemia with suspected neoplastic cause. He presented to the emergency room with worsening shortness of breath and dyspnea on exertion. He reports having 2-3 days of worsening shortness of breath, difficulty when sitting up on the edge of bed with catching his breath. Denies any melena, hematochezia, overt bleeding he is aware of. Denies any chest pain, palpitations, swelling in his lower extremities. Initially seen in the ER where workup was concerning for symptomatic anemia versus CHF exacerbation due to elevated BNP. Given dose of Lasix with brisk response. Received 1 unit of packed red blood cells overnight. Repeat CBC after unit of blood had no change however. Admitted to medicine for further management of symptoms. On interview this morning patient states he still feels very weak and not feels about 50% his baseline. -Denies any fevers, headache, syncope, nausea or vomiting. Hospital Course Hospital Course: Patient was admitted, 1 unit of packed cells was given, degrees was brisk and caused improvement in his breathing. This morning he is doing well. Sitting up on the side of the bed, eating breakfast. Plan will be to discharge home. We will continue his Lasix dose. I will administer a short course of prednisone for his mild COPD exacerbation. We will see him in the office in 4 days and discuss palliative care with he and his son. Objective Vital signs: Temp Pulse Resp BP Pulse Ox 97.8 F 80 16 93/51 100 07/23/18 04:00 07/23/18 04:00 07/23/18 04:00 07/23/18 04:00 07/23/18 04:00 Narrative: Patient is awake, alert, oriented 3. Oropharynx clear. No JVD this morning. Heart rate regular. Lungs have rhonchi in the chest but fairly symmetric air entry although it is diminished. No edema or clubbing. Results Labs on day of discharge: Labs from last 24 hours 07/23/18 07/22/18 07/22/18 06:03 20:41 16:28 WBC RBC Hgb Hct MCV MCH MCHC RDW Plt Count MPV Neut % (Auto) Lymph % (Auto) Callahan % (Auto) Eos % (Auto) Baso % (Auto) Neut # (Auto) Lymph # (Auto) Callahan # (Auto) Eos # (Auto) Baso # (Auto) Sodium Potassium Chloride Carbon Dioxide Anion Gap BUN Creatinine Estimated Creat Clear Estimated GFR Est GFR ( Amer) Glucose POC Glucose 145 H 156 H 166 H Calcium 07/22/18 07/22/18 07/22/18 10:16 06:25 06:25 WBC 5.9 RBC 3.91 L Hgb 9.1 L Hct 30.3 L MCV 77.4 L MCH 23.4 L MCHC 30.2 L RDW 18.8 H Plt Count 354 MPV 8.7 Neut % (Auto) 65.4 Lymph % (Auto) 26.0 Callahan % (Auto) 6.5 Eos % (Auto) 1.6 Baso % (Auto) 0.5 Neut # (Auto) 3.8 Lymph # (Auto) 1.5 Callahan # (Auto) 0.4 Eos # (Auto) 0.1 Baso # (Auto) 0.0 Sodium 145 Potassium 3.6 Chloride 106 Carbon Dioxide 31 Anion Gap 11.6 BUN 17 Creatinine 1.27 D Estimated Creat Clear 43 Estimated GFR 54 L Est GFR ( Amer) 66 D Glucose 149 H POC Glucose 150 H Calcium 9.1 DS: Diagnosis - Discharge Diagnosis (1) Anemia Status: Chronic (2) Congestive cardiac failure Status: Chronic (3) Fatigue Status: Chronic (4) Dyspnea Status: Chronic Discharge Plan - Patient Discharge Instructions ACTIVITY: Continue current activity DIET: continue same diet - Follow up Plan Follow up with: Haseeb Carter MD [Primary Care Provider] - 07/27/18 Disposition: Home, Self-Half-Way Medications: Home Medications Medication Instructions Recorded Confirmed Type Albuterol Sulfate [Proair 2 puffs IH QID 11/12/17 07/22/18 History Respiclick] Nitroglycerin 0.4 mg SL Q5MINP PRN 11/12/17 07/22/18 History Pantoprazole Sodium [Protonix 40mg 40 mg PO HS 11/12/17 07/22/18 History tablet] Rivaroxaban [Xarelto 20mg Tablet] 20 mg PO HS 11/12/17 07/22/18 History Simvastatin [Zocor] 40 mg PO HS 11/12/17 07/22/18 History Levothyroxine Sodium 50 mcg PO DAILY 01/14/18 07/22/18 History [Levothyroxine 50mcg (0.05mg) Tab] Amlodipine Besylate [Amlodipine 10 mg PO HS 01/15/18 07/22/18 History 10mg Tab] Ferrous Sulfate [Ferrous Sulfate 325 mg PO DAILY 01/15/18 07/22/18 History 325mg Tablet] Fluticasone/Vilanterol [Breo 1 puff IH DAILY 03/23/18 07/22/18 History Ellipta 100-25 Mcg INH] Potassium 99 mg PO DAILY 05/24/18 07/22/18 History Fludrocortisone Acetate [Florinef 0.1 mg PO DAILY 07/22/18 07/22/18 History 0.1mg tablet] Furosemide [Furosemide 20mg Tab] 20 mg PO DAILY 07/22/18 07/22/18 History Metformin HCl 1,000 mg PO BID 07/22/18 07/22/18 History Ondansetron HCl [Ondansetron 4mg 4 mg PO Q8HP PRN 07/22/18 07/22/18 History Tablet] Tamsulosin HCl [Flomax 0.4mg 0.4 mg PO HS 07/22/18 07/22/18 History capsule] raNITIdine HCl [Zantac] 150 mg PO BID 07/22/18 07/22/18 History Prescriptions/Medication Reconciliation: New predniSONE [Deltasone 20mg tablet] 20 mg PO DAILY 7 Days #7 tab Continue Pantoprazole Sodium [Protonix 40mg tablet] 40 mg PO HS Simvastatin [Zocor] 40 mg PO HS Rivaroxaban [Xarelto 20mg Tablet] 20 mg PO HS Nitroglycerin 0.4 mg SL Q5MINP PRN PRN Reason: Chest Pain Albuterol Sulfate [Proair Respiclick] 2 puffs IH QID Levothyroxine Sodium [Levothyroxine 50mcg (0.05mg) Tab] 50 mcg PO DAILY Ferrous Sulfate [Ferrous Sulfate 325mg Tablet] 325 mg PO DAILY Fluticasone/Vilanterol [Breo Ellipta 100-25 Mcg INH] 1 puff IH DAILY Metformin HCl 1,000 mg PO BID Tamsulosin HCl [Flomax 0.4mg capsule] 0.4 mg PO HS raNITIdine HCl [Zantac] 150 mg PO BID Ondansetron HCl [Ondansetron 4mg Tablet] 4 mg PO Q8HP PRN PRN Reason: Nausea Furosemide [Furosemide 20mg Tab] 20 mg PO DAILY Fludrocortisone Acetate [Florinef 0.1mg tablet] 0.1 mg PO DAILY Amlodipine Besylate [Amlodipine 10mg Tab] 10 mg PO HS Ipratropium/Albuterol Sulfate [Duoneb 3mL neb] 3 ml IH Q4HP PRN 30 Days #120 ampul.neb PRN Reason: Shortness Of Breath Potassium 99 mg PO DAILY Gabapentin [Neurontin 100mg cap] 100 mg PO TID cap
== END 2018-07-23 09:25 | disposition home or self-care (01) ==
LOC: ER 18:43 → 2ND 18:43
PROVIDERS: ADMIT Family Medicine; ATTEND Internal Medicine Adolescent Medicine
CPT/HCPCS: 36415; 71020; 71046; 74021; 74022; 80048; 80053; 82550; 82553; 82962; 83735; 83880; 84484; 85014; 85018; 85025; 86850; 93005; 94761; 99283; G0378; P9016

== ENCOUNTER → 2018-07-27 12:03 | Outpatient (CLI) | payer MEDICARE, MEDICAID, SELFPAY ==
[2018-07-27 12:47] LABS: Basophils % 0.5 % (0.1-2.0); Eosinophils # 0.1 K/mm3 (0.0-0.4); Eosinophils % 1.1 % (0.1-12.0); Hematocrit 31.5 % (42.0-52.0); Hemoglobin 9.4 g/dL (14.1-18.0); Lymphocytes # 1.3 K/mm3 (0.7-4.5); Mean Corpuscular HGB Conc 29.7 g/dL (31.8-35.4); Mean Corpuscular Hemoglobin 23.4 pg (27.0-31.2); Mean Corpuscular Volume 78.8 fl (80-94); Monocytes # 0.4 K/mm3 (0.1-1.0); Neutrophils # 6.1 K/mm3 (1.8-7.8); Neutrophils % 77.4 % (37.0-80.0); Platelet Count 353 K/mm3 (142-424); Red Cell Distribution Width 18.4 % (11.5-17.5); White Blood Count 7.9 K/mm3 (4.8-10.8)
[2018-07-27 13:28] LABS: Alanine Aminotransferase 20 U/L (12-78); Albumin Level 3.3 gm/dL (3.4-5.0); Alkaline Phosphatase 83 U/L (46-116); Anion Gap 12.4 mEq/L (5-15); Aspartate Amino Transferase 13 U/L (15-37); Bilirubin,Total 0.6 mg/dL (0.2-1.0); Blood Urea Nitrogen 18 mg/dL (7-18); Carbon Dioxide 32 mmol/L (21.0-32.0); Chloride 105 mmol/L (98-107); Creatinine,Serum 1.14 mg/dL (0.70-1.30); Estimated Glomerular Filt Rate 62 ml/min (>60); GFR (African American) 75 ML/MIN (>60); Globulin 3.4 gm/dl (1.3-3.2); Glucose 137 mg/dL (74-106); Potassium 4.4 mmoL/L (3.5-5.1); Sodium 145 mmol/L (136-145); Total Protein,Serum 6.7 gm/dL (6.4-8.2)
== END ==
PROVIDERS: PCP Internal Medicine Adolescent Medicine; Visit Provider Internal Medicine Adolescent Medicine
DX: D59.1 Other autoimmune hemolytic anemias (principal)
CPT/HCPCS: 36415; 80053; 85025

== ENCOUNTER 2018-08-26 16:14 | Outpatient (CLI) | payer MEDICARE, MEDICAID, SELFPAY ==
[2018-08-26] VITALS (14 sets, daily range): BP systolic 125–167; BP diastolic 57–87; PULSE 68–83; RESP 17–20; TEMP 36.4–36.9; O2SAT 90–98; BMI 21.9
[2018-08-26 16:54] LABS: Basophils % 0.6 % (0.1-2.0); Eosinophils # 0.1 K/mm3 (0.0-0.4); Eosinophils % 1.8 % (0.1-12.0); Hematocrit 27.4 % (42.0-52.0); Hemoglobin 8.5 g/dL (14.1-18.0); Lymphocytes # 1.1 K/mm3 (0.7-4.5); Lymphocytes % 17.9 K/mm3 (10-50); Mean Corpuscular HGB Conc 30.9 g/dL (31.8-35.4); Mean Corpuscular Hemoglobin 24.1 pg (27.0-31.2); Mean Platelet Volume 6.5 fl (7.4-10.4); Monocytes # 0.4 K/mm3 (0.1-1.0); Monocytes % 5.8 % (1.7-9.3); Neutrophils # 4.5 K/mm3 (1.8-7.8); Platelet Count 276 K/mm3 (142-424); Red Blood Count 3.51 M/mm3 (4.60-6.20); Red Cell Distribution Width 18.2 % (11.5-17.5); White Blood Count 6.1 K/mm3 (4.8-10.8)
[2018-08-26 17:01] LABS: Anion Gap 12.9 mEq/L (5-15); Blood Urea Nitrogen 18 mg/dL (7-18); Carbon Dioxide 32 mmol/L (21.0-32.0); Chloride 105 mmol/L (98-107); Creatinine Clearance Estimated 43 mL/min (0-300); Creatinine,Serum 1.39 mg/dL (0.70-1.30); Estimated Glomerular Filt Rate 49 ml/min (>60); GFR (African American) 59 ML/MIN (>60); Glucose 121 mg/dL (74-106); Sodium 147 mmol/L (136-145)
[2018-08-26 17:21] LABS: Potassium 2.9 mmoL/L (3.5-5.1)
[2018-08-26 22:01] LABS: Hemoglobin 8.9 g/dL (14.1-18.0)
[2018-08-26 22:02] LABS: Hematocrit 27.7 % (42.0-52.0)
--- NOTE | 2018-08-26 22:48 | PC.NURSE ---
FOLLOWING RECEIVING REPORT FROM DORIE HOOD AT BEGINNING OF SHIFT, BLOOD CONSENT WAS REVIEWED PER THIS RN AND VERIFIED FOR APPROPRIATE SIGNATURES. VITALS OBTAINED AT 1909 (PER BLOOD VITAL TIMES) AND LUNG SOUNDS AUSCULTATED AND NOTED TO BE CLEAR T/O BUT DIMINISHED IN BILATERAL BASES. [facility] APPLIED T/O TRANSFUSION AND UNTIL DEPARTURE FROM FACILITY, PT TOLERATED THIS WELL WITHOUT C/O SOA, USE OF [facility] IS PT'S BASELINE. PT TOLERATED BLOOD TRANSFUSION WELL AND DENIED ANY PAIN OR DISCOMFORT T/O TRANSFUSION. POST H&H OBTAINED, POST 1 HOUR TRANSFUSION VS OBTAINED, AND IV DC'D BETWEEN [id number]. DISCHARGE INFORMATION OBTAINED AT 2199 AND PT REMINDED TO TAKE 3 TABS OF POTASSIUM ONCE GOING HOME R/T LOW POTASSIUM LEVEL DISCOVERED ON LAB WORK, ALSO INSTRUCTED PT TO TAKE 3 TABS TOMORROW, AND ON WEDNESDAY. THE FRONT OFFICE ASSISTANT REPEATED INSTRUCTIONS TO THIS RN, THIS VERIFIED PT'S /FRONT OFFICE ASSISTANT'S UNDERSTANDING OF INSTRUCTIONS. AT 2200, PT ASSISTED TO WHEEL CHAIR, PRIOR TO TRANSFER FROM BED TO WHEEL CHAIR, PT STATED I FEEL NAUSEOUS. I FEEL LIKE MY BELLY IS TIGHT. FRONT OFFICE ASSISTANT PRESENT DURING THIS COMPLAINT STATED TO RN THIS IS HIS NORM, I WILL GIVE HIM A LAXATIVE WHEN HE GETS HOME. RN ASKED PT WHEN WAS YOUR LAST BM? PT STATED THE DAY BEFORE YESTERDAY. I WILL BE OKAY. RN OFFERED NON-PHARMACOLOGICAL INTERVENTIONS AND OFFERED TO NOTIFY MD OF COMPLAINT IN HOPES TO RECEIVE MEDICATION TO RELIEVE PT OF NAUSEA. PT STATED NO I AM OKAY, I AM FEELING BETTER NOW. I JUST WANT TO GO HOME, I WILL BE OKAY. RN PROVIDED PT WITH [employer] BAG FOR TRANSPORTATION FROM 2ND FLOOR TO THE CAR AND FOR THE RIDE HOME. PT DEPARTED FROM ROOM 203 AT 2206. PT ASSISTED PER CAREGIVER IN WHEEL CHAIR AND RN ASSISTED WITH OXYGEN/ROLLING OXYGEN TANK CARRIER. ONCE PT ARRIVED TO CAREGIVER'S VEHICLE, OXYGEN TANK PROVIDED PER CAREGIVER, TUBING SWITCHED FROM [facility]S OXYGEN TANK TO PT'S OWN OXYGEN TANK, PT INDEPENDENTLY DIALED OXYGEN TO [facility]. PT ASSISTED FROM WHEEL CHAIR TO CAR. PT CONDITION REMAINED STABLE/GOOD. PT JOKING AND LAUGHING UPON DEPARTURE FROM FACILITY.
== END 2018-08-26 22:07 | disposition home or self-care (01) ==
LOC: INF 16:16
PROVIDERS: PCP Internal Medicine Adolescent Medicine; Visit Provider Internal Medicine Adolescent Medicine
DX: D46.4 Refractory anemia, unspecified (principal)
CPT/HCPCS: 36415; 36430; 80048; 85014; 85018; 85025; 86850; 96360; P9016